=== PATIENT | male | born 1955 | race Caucasian/White ===

== ENCOUNTER 2017-10-28 23:36 | Inpatient (IN) | payer MEDICARE, MEDICAID ==
--- NOTE | 2017-10-28 23:45 | ED Physician Chart ---
ED Chief Complaint/HPI - Patient Information Date Seen:: 10/28/17 Time Seen:: 23:40 Chief Complaint:: anemia History of Present Illness:: She sent here for a hemoglobin of 6.9. Patient is on dialysis Wednesday Historian:: Patient, EMS Review:: Nurse's Note Reviewed, Transfer documents Reviewed ED Review of Systems - Review of Systems General/Constitutional: No fever, No chills Skin: No skin lesions Head: No headache Eyes: No loss of vision ENT: No earache Neck: No neck pain, No swelling Cardio Vascular: No chest pain, No palpitations GI: No nausea, No vomiting, No diarrhea G/U: No dysuria Musculoskeletal: No bone or joint pain, No back pain, No muscle pain Endocrine: No polyuria Psychiatric: No prior psych history ED Past Medical History - Past Medical History Past Medical History: Asthma/COPD, Other (renal failure on dialysis; multiple myeloma anemia; diabetes) Family History: None Social History: Non Smoker, No Alcohol Surgical History: other (dialysis shunt) Psychiatricy History: None Medication: Reviewed Family Medical History - Family Member Mother History Unknown: Yes ED Physical Exam - Physical Examination Other Gen/Cons comments:: Chronically ill appearing in no acute distress Head: Atraumatic Eyes: Lids, conjuctiva normal, PERRL Skin: Nl inspection, No rash ENMT: External ears, nose nl Neck: No nuchal rigidity Respiratory: Nl effort/Exclusion, Clear to Auscultation Cardio Vascular: RRR GI: Normal BS's, Nondistended Other GI comments:: Diffuse mild tenderness : No CVA tenderness Extremities: Normal digits & nails Neuro/Psych: No focal deficits Misc: No paraspinal tenderness ED Labs/Radiology/EKG Results - Lab Results Comments:: Laboratory Results - last 24 hr 10/28/17 23:45 WBC 4.6 L RBC 2.28 L Hgb 6.9 L* Hct 21.1 L MCV 92.5 MCH 30.1 H MCHC Differential 32.6 RDW 22.2 H Plt Count 216 MPV 6.6 Laboratory Results - last 24 hr 10/28/17 10/28/17 23:45 23:45 WBC 4.6 L RBC 2.28 L Hgb 6.9 L* Hct 21.1 L MCV 92.5 MCH 30.1 H MCHC Differential 32.6 RDW 22.2 H Plt Count 216 MPV 6.6 Band Neutrophils % 2 Neutrophils (Manual) 75 Lymphocytes 23 Platelet Estimate ADEQUATE Sodium 135 L Potassium 3.4 L Chloride 96 L Carbon Dioxide 29.5 Anion Gap 12.9 BUN 26 H Creatinine 3.5 H Est GFR ( Amer) 23.1 Est GFR (Non-Af Amer) 19.1 BUN/Creatinine Ratio 7.4 Glucose 93 Calcium 9.3 ED Septic Shock - . Is Septic Shock (SBP<90, OR Lactate>4 mmol\L) present?: No ED Reassessment (Disposition) - Reassessment Reassessment Condition:: Unchanged - Diagnosis Diagnosis:: Anemia; renal failure on dialysis; multiple myeloma - Patient Disposition Admitted to:: Med/Surg Spoke to:: Demetrius Ervin Admitting Medical Physician:: Demetrius Ervin Condition at Disposition:: Stable, Unchanged
[2017-10-28 23:59] LABS: MEAN CELL VOLUME 92.5 fl (80-99); MEAN CORPUSCULAR HEMOGLOBIN 30.1 pg (26.0-30.0); MEAN CORPUSCULAR HGB CONC 32.6 pg (28.0-36.0); MEAN PLATELET VOLUME 6.6 fl; PLATELET COUNT 216 Th/cmm (150-400); RED BLOOD COUNT 2.28 Mil/cmm (4.30-5.70); RED CELL DISTRIBUTION WIDTH 22.2 % (11.5-20.0); WHITE BLOOD COUNT 4.6 Th/cmm (4.8-10.8)
[2017-10-29 00:05] LABS: HEMATOCRIT 21.1 % (41.0-60); HEMOGLOBIN 6.9 gm/dL (12-16)
[2017-10-29 00:06] LABS: MANUAL DIFF REQUIRED? YES
[2017-10-29 00:34] LABS: NEUTROPHILS 75 % (40-80); TOTAL CELLS COUNTED 100
[2017-10-29 00:35] LABS: BAND NEUTROPHILE 2 % (0-10); LYMPHOCYTE 23 % (20-50); PLATELET ESTIMATE ADEQUATE (NORMAL)
[2017-10-29 00:41] LABS: ANION GAP 12.9 (7.0-16.0); CALCIUM SERUM 9.3 mg/dL (8.6-10.3); CARBON DIOXIDE 29.5 mEq/L (21.0-31.0); CREATININE - SERUM 3.5 mg/dL (0.7-1.3); GFR AFRICAN-AMERICAN 23.1 ml/min (>90); GFR NON AFRICAN-AMERICAN 19.1 ml/min; POTASSIUM SERUM 3.4 mEq/L (3.5-5.1)
[2017-10-29 04:42] VITALS: BP 146/90
[2017-10-29 07:21] LABS: WHITE BLOOD COUNT 4.5 Th/cmm (4.8-10.8)
[2017-10-29 07:36] LABS: MEAN CELL VOLUME 92.6 fl (80-99); MEAN CORPUSCULAR HEMOGLOBIN 30.3 pg (26.0-30.0); MEAN CORPUSCULAR HGB CONC 32.7 pg (28.0-36.0); MEAN PLATELET VOLUME 6.4 fl; PLATELET COUNT 219 Th/cmm (150-400); RED BLOOD COUNT 2.23 Mil/cmm (4.30-5.70); RED CELL DISTRIBUTION WIDTH 23.3 % (11.5-20.0)
[2017-10-29 07:38] LABS: HEMOGLOBIN 6.8 gm/dL (12-16)
[2017-10-29 07:39] LABS: HEMATOCRIT 20.7 % (41.0-60); MANUAL DIFF REQUIRED? YES
[2017-10-29 07:56] LABS: ANION GAP 9.4 (7.0-16.0); BILIRUBIN,TOTAL 0.5 mg/dL (0.3-1.0); CALCIUM SERUM 9.3 mg/dL (8.6-10.3); CARBON DIOXIDE 30.3 mEq/L (21.0-31.0); CREATININE - SERUM 3.9 mg/dL (0.7-1.3); GFR AFRICAN-AMERICAN 20.4 ml/min (>90); GFR NON AFRICAN-AMERICAN 16.8 ml/min; POTASSIUM SERUM 3.7 mEq/L (3.5-5.1); TOTAL PROTEIN,SERUM 6.1 gm/dL (6.0-8.3)
[2017-10-29 08:01] LABS: NEUTROPHILS 73 % (40-80); TOTAL CELLS COUNTED 100
[2017-10-29 08:02] LABS: BAND NEUTROPHILE 4 % (0-10); LYMPHOCYTE 22 % (20-50); MONOCYTE 1 % (2-10)
--- NOTE | 2017-10-29 15:46 | History & Physical ---
ADMIT DATE: 10/29/2017 HISTORY OF PRESENT ILLNESS: The patient came through the Emergency Room complaining of severe weakness and was found to have severe anemia of 6.9. The patient is known to have end-stage renal disease and is on dialysis. The patient also known to have history of immunodeficiency disorder and the patient has depression history, the patient has functional paraparesis, patient has multiple myeloma, history of anemia, history of asthma, history of COPD. The patient is chronically ill-looking male patient. REVIEW OF SYSTEMS: As noted above. PAST SURGICAL HISTORY: History of shunt. PAST MEDICAL HISTORY: Enumerated above. FAMILY HISTORY: Unremarkable. PHYSICAL EXAMINATION: GENERAL: Alert, oriented, ill looking male patient, seems to be very weak. HEAD: Normal. ENT: Normal. NECK: Supple, nontender. LUNGS: Bilateral rales. CARDIOVASCULAR SYSTEM: S1, S2 heard. ABDOMEN: Soft. Bowel sounds are heard. LABORATORY DATA: Hemoglobin was 6.9, hematocrit was 29. Electrolytes are abnormal. BUN and creatinine was high at 26 and 3.5. DIAGNOSES: Severe weakness, bilateral lower leg weakness, per functional paraparesis, history of multiple myeloma, history of severe anemia and history of ESRD, rule out sepsis was made. The patient also has history of asthma and history of chronic obstructive pulmonary disease. The patient was admitted. I will have a chart snatcher do the dialysis and also by Infectious Disease doctor see the patient, Dr. Albert Phelps and I will follow the patient. [facility]# [id number]
[2017-10-29] MEDS ORDERED: VTE Chemical Prophylaxis Screen/Admission MC PRN (15:52)
[2017-10-29] MEDS ORDERED: Heparin Sodium 1,000 Units/mL Vial HD ONE (16:45)
[2017-10-29] MEDS: Albuterol/Ipratropium Neb 3 ML AERS HHN SCH (19:02)
[2017-10-29] MEDS: Budesonide 0.5 Mg/2 mL Ud HHN SCH (19:02)
--- NOTE | 2017-10-29 22:14 | Consultation ---
DATE OF CONSULTATION: 10/29/2017 REASON FOR CONSULTATION: Electrolyte imbalance and fluid management. HISTORY OF PRESENT ILLNESS: This is a 62-year-old male with past medical history of end-stage renal disease, on hemodialysis, was brought in because of severe anemia. A few hours prior to admission, the patient had a CBC done, which revealed severe anemia of hemoglobin 6.9. He was then brought to the Emergency Room. His hemoglobin/hematocrit were 6.9/21.1. He was admitted for transfusion. There was no history of hematemesis, epistaxis, hemoptysis, melena, nor hematochezia. PAST MEDICAL HISTORY: 1. End-stage renal disease, on hemodialysis. 2. COPD. 3. Multiple myeloma. 4. Anemia of chronic kidney disease as well as multiple myeloma. 5. Type 2 diabetes mellitus. 6. Essential hypertension. 7. Severe malnutrition. 8. CHF. 9. Pelvic mass. PAST SURGICAL HISTORY: Status post creation of left AV fistula. CURRENT MEDICATIONS: He is currently on acetaminophen as well as budesonide. ALLERGIES: No known drug allergies. SOCIAL AND FAMILY HISTORY: I was not able to obtain from the patient because he is uncooperative at the present time. REVIEW OF SYSTEMS: Again, the patient remains uncooperative, remains nonverbal. PHYSICAL EXAMINATION: GENERAL: The patient is drowsy, uncooperative, but not in any form of distress. VITAL SIGNS: His blood pressure 146/90, pulse 90, and temperature is 98.1 degrees. SKIN: Good turgor, warm, no rash, no jaundice appreciated. HEENT: Head normocephalic, atraumatic. Eyes: Extraocular muscles intact. Pupils equal, round, reactive to light and accommodates. Anicteric sclerae. Pale conjunctivae. Nose, midline nasal septum. Mouth: Dry mucosa, adequate dentition. NECK: Supple, no adenopathy, no thyromegaly, no bruits. Trachea palpated in the midline. CHEST AND CARDIOVASCULAR: S1, S2. No rub, murmur, nor gallop appreciated. Point of maximal impulse fifth intercostal space, left midclavicular line. No abdominal or femoral bruits appreciated. LUNGS: Equal expansion. No use of accessory muscles. No supraclavicular retractions. Decreased breath sounds, clear to auscultation without any wheeze. ABDOMEN: Flat and soft. Positive for bowel sounds. No bruits either diastolic or systolic. RECTAL: The patient refused. GENITOURINARY: Normal appearing male genitalia. MUSCULOSKELETAL: No effusions present in his joints, but unable to assess his range of motion. EXTREMITIES: No evidence of any edema, cyanosis, nor clubbing with palpable femoral, but unable to fully appreciate popliteal, dorsalis pedis pulses. He has a good bruit and thrill on his left AV fistula. NEUROLOGIC: As mentioned, the patient is uncooperative at the present time, so I was not able to pursue further my neuro exam. LABORATORY DATA: White count 4.5, hemoglobin 6.8, hematocrit 20.7, platelets 219, and polys 73%. Sodium 134, potassium 3.7, chloride 98, bicarbonate 30, BUN 27, creatinine 3.9, glucose 104, calcium 9.8, albumin was 3. IMPRESSION: 1. End-stage renal disease, on hemodialysis. 2. Severe anemia secondary to chronic kidney disease as well as multiple myeloma, also consider acute etiologies such as possibly gastrointestinal bleed. 3. Chronic obstructive pulmonary disease. 4. Multiple myeloma. 5. Type 2 diabetes mellitus with chronic kidney disease. 6. Essential hypertension with chronic kidney disease. 7. Severe malnutrition. 8. History of congestive heart failure. 9. Pelvic mass. PLAN: 1. Hemodialysis today. 2. Transfuse 1 more unit of packed RBC. 3. Follow up CBC. 4. Stool for occult blood. JOB# [id number]
[2017-10-30] MEDS ORDERED: Albumin 25% 25gm/100mL 25 GM/100 ML BTL IV PRN
[2017-10-30] MEDS: Albuterol/Ipratropium Neb 3 ML AERS HHN SCH ×4 (00:57→19:08)
[2017-10-30 06:43] LABS: HEMOGLOBIN 8.9 gm/dL (12-16); MEAN CELL VOLUME 89.1 fl (80-99); MEAN CORPUSCULAR HEMOGLOBIN 29.7 pg (26.0-30.0); MEAN CORPUSCULAR HGB CONC 33.3 pg (28.0-36.0); MEAN PLATELET VOLUME 6.8 fl; PLATELET COUNT 193 Th/cmm (150-400); RED BLOOD COUNT 3.01 Mil/cmm (4.30-5.70); RED CELL DISTRIBUTION WIDTH 23.1 % (11.5-20.0)
[2017-10-30] MEDS: Budesonide 0.5 Mg/2 mL Ud HHN SCH ×2 (07:38→19:08)
[2017-10-30 08:03] LABS: HEMATOCRIT 26.8 % (41.0-60); MANUAL DIFF REQUIRED? YES; WHITE BLOOD COUNT 3.7 Th/cmm (4.8-10.8)
--- NOTE | 2017-10-30 08:20 | Diagnostic Imaging Report ---
Portable chest x-ray HISTORY: Shortness of breath Prior exams are not available for comparison. The heart is enlarged. There appears to be elevation of the left hemidiaphragm. Bilateral pulmonary infiltrates are seen. Changes may be chronic. Superimposed pneumonia cannot be excluded. There is extensive deformity about the chest wall with multiple old fractures. Generalized osteopenia throughout the bones. Scoliosis and degenerative changes seen in the spine. IMPRESSION: 1. Cardiomegaly 2. Apparent elevation of the left hemidiaphragm along with bilateral pulmonary infiltrates with an overall appearance which suggests chronic change. Superimposed pneumonia cannot be excluded. Clinical correlation is needed. 3. Extensive chest wall deformity associated with multiple bilateral old fractures and generalized osteopenia. Findings should be correlated with the patient's history.
[2017-10-30 09:17] LABS: BAND NEUTROPHILE 1 % (0-10); EOSINOPHIL 1 % (0-5); LYMPHOCYTE 30 % (20-50); MONOCYTE 2 % (2-10); NEUTROPHILS 66 % (40-80); PLATELET ESTIMATE ADEQUATE (NORMAL); TOTAL CELLS COUNTED 100
[2017-10-30 09:17] LABS: pH 7.46 (7.35-7.45)
--- NOTE | 2017-10-30 12:38 | General Progress Note ---
Subjective - Review of Systems Events since last encounter: in no distress awake alert Objective - Results Result Diagrams: 10/30/17 05:45 10/29/17 07:00 Recent Labs: Laboratory Last Values WBC 3.7 Th/cmm (4.8-10.8) L 10/30/17 05:45 RBC 3.01 Mil/cmm (4.30-5.70) L 10/30/17 05:45 Hgb 8.9 gm/dL (12-16) L 10/30/17 05:45 Hct 26.8 % (41.0-60) L D 10/30/17 05:45 MCV 89.1 fl (80-99) 10/30/17 05:45 MCH 29.7 pg (26.0-30.0) 10/30/17 05:45 MCHC Differential 33.3 pg (28.0-36.0) 10/30/17 05:45 RDW 23.1 % (11.5-20.0) H 10/30/17 05:45 Plt Count 193 Th/cmm (150-400) 10/30/17 05:45 MPV 6.8 fl 10/30/17 05:45 Band Neutrophils % 1 % (0-10) 10/30/17 05:45 Neutrophils (Manual) 66 % (40-80) 10/30/17 05:45 Lymphocytes 30 % (20-50) 10/30/17 05:45 Monocytes 2 % (2-10) 10/30/17 05:45 Eosinophils 1 % (0-5) 10/30/17 05:45 Platelet Estimate ADEQUATE (NORMAL) 10/30/17 05:45 Specimen Source Arterial 10/30/17 09:00 Sample Site RB 10/30/17 09:00 pH 7.46 (7.35-7.45) H 10/30/17 09:00 pCO2 47.0 mmHg (35.0-45.0) H 10/30/17 09:00 pO2 69.0 mmHg (80.0-100.0) L 10/30/17 09:00 HCO3 31.4 mEq/L (20.0-26.0) H 10/30/17 09:00 Base Excess 8.4 mEq/L (-3.0-3.0) H 10/30/17 09:00 O2 Saturation 95.0 % (92.0-100.0) 10/30/17 09:00 Bill Test NA 10/30/17 09:00 Vent Rate NA 10/30/17 09:00 Inspired O2 28 10/30/17 09:00 Tidal Volume NA 10/30/17 09:00 PEEP NA 10/30/17 09:00 Pressure (ins/psv/peep) NA 10/30/17 09:00 Critical Value SH 10/30/17 09:00 Sodium 134 mEq/L (136-145) L 10/29/17 07:00 Potassium 3.7 mEq/L (3.5-5.1) 10/29/17 07:00 Chloride 98 mEq/L (98-107) 10/29/17 07:00 Carbon Dioxide 30.3 mEq/L (21.0-31.0) 10/29/17 07:00 Anion Gap 9.4 (7.0-16.0) 10/29/17 07:00 BUN 27 mg/dL (7-25) H 10/29/17 07:00 Creatinine 3.9 mg/dL (0.7-1.3) H 10/29/17 07:00 Est GFR ( Amer) 20.4 ml/min (>90) 10/29/17 07:00 Est GFR (Non-Af Amer) 16.8 ml/min 10/29/17 07:00 BUN/Creatinine Ratio 6.9 10/29/17 07:00 Glucose 104 mg/dL (70-105) 10/29/17 07:00 POC Glucose 83 MG/DL (70 - 105) 10/29/17 05:41 Calcium 9.3 mg/dL (8.6-10.3) 10/29/17 07:00 Total Bilirubin 0.5 mg/dL (0.3-1.0) 10/29/17 07:00 AST 17 U/L (13-39) 10/29/17 07:00 ALT 16 U/L (7-52) 10/29/17 07:00 Alkaline Phosphatase 182 U/L (34-104) H 10/29/17 07:00 Ammonia 47 umol/L (16-53) 10/30/17 05:45 Total Protein 6.1 gm/dL (6.0-8.3) 10/29/17 07:00 Albumin 3.0 gm/dL (4.2-5.5) L 10/29/17 07:00 Globulin 3.1 gm/dL 10/29/17 07:00 Albumin/Globulin Ratio 1.0 (1.0-1.8) 10/29/17 07:00 Blood Type B NEGATIVE 10/29/17 03:00 Antibody Screen NEGATIVE 10/29/17 03:00 Crossmatch See Detail 10/29/17 03:00 - Physical Exam Vitals and I&O: Vital Signs Temp 98.7 F 10/30/17 08:00 Pulse 91 10/30/17 11:50 Resp 14 10/30/17 11:50 BP 136/85 10/30/17 08:00 Pulse Ox 95 10/30/17 11:50 Intake & Output 10/29/17 10/30/17 10/30/17 18:59 06:59 18:59 Intake Total 100 700 Balance 100 700 Weight (lbs) 43.091 kg 37.104 kg Intake: Oral 100 200 Blood Product 500 Other: # Bowel Movements 0 Active Medications: Current Medications Acetaminophen (Tylenol) 650 mg PO Q6H PRN PRN Reason: MILD PAIN Stop: 12/28/17 05:10 Last Admin: 10/29/17 05:39 Dose: 650 mg Albuterol/Ipratropium (Duoneb Neb) 3 ml HHN Q6HRT [facility] Stop: 12/28/17 18:59 Last Admin: 10/30/17 11:47 Dose: 3 ml Budesonide (Pulmicort) 0.5 mg HHN BIDRT [facility] Stop: 12/28/17 18:59 Last Admin: 10/30/17 07:38 Dose: 0.5 mg Epoetin Binu (Epogen) 5,000 units SUBQ TuThSa [facility] Stop: 12/29/17 13:59 Folic Acid (Folate) 1 mg PO DAILY [facility] Stop: 12/30/17 08:59 Albumin Human (Albuminar 25%) 25 gm in 100 mls @ 50 mls/hr IV PRN PRN PRN Reason: BP Support During HD Stop: 10/30/17 23:00 Miscellaneous (Vte Chemical Prophylaxis Screen/ Admission) 1 ea MC PRN PRN PRN Reason: PROTOCOL Stop: 12/28/17 15:51 Mupirocin (Bactroban Oint) 1 appl TP BID [facility] Stop: 12/29/17 16:59 Nutritional Asmnt/Malnutr-PDOC - Dietary Evaluation Malnutrition Findings (Please click <Entered> for more info): Nutritional Asmnt/Malnutrition Start: 10/29/17 16: 46 Text: Status: Complete Freq: Document 10/29/17 16:46 LUCY (Rec: 10/29/17 17:12 [email or web address] Nutritional Asmnt/Malnutrition Patient General Information Nutritional Screening High Risk Consult Diagnosis Anemia, ESRD Pertinent Medical Hx/Surgical Hx ESRD on dialysis, immunodeficiency disorder, depression, functional paraparesis, multiple myeloma, anemia, asthma/COPD Subjective Information Consult received for hs of malnutrition. Pt seen lying in bed, awake and alert at time of visit. Pt refused lunch, agressive, did not want any food at this time. Pt complained food upset his stomach. Pt has no teeth noted , possibly not able to chew regular textured food. Pt appeared skinny noted. Current Diet Order/ Nutrition Support Renal Pertinent Medications reviewed Pertinent Labs 3/2 Na 134, K 3.7, Cl 98, BUN 27, Cr 3.9, glucose 104, Alb 3 .0 Nutritional Hx/Data Height 1.7 m Height (Calculated Centimeters) 170.2 Current Weight (lbs) 43.091 kg Weight (Calculated Kilograms) 43.1 Weight (Calculated Grams) 14435.3 Harvey Body Weight 147 % Harvey Body Weight 67 Body Mass Index (BMI) 14.8 Weight Status Underweight GI Symptoms GI Symptoms None Last BM no record Difficult in: None Skin Integrity/Comment: reddened to right knee, left lower leg, left knee Estimated Nutritional Goals Calories/Kcals/Kg 25-30 Kcals Calculated 7112-7148 Protein g/k-1.2 Protein Calculated 67-80 Fluid: ml per MD d/t dialysis Nutritional Problem 2. Problem Problem underweight Etiology hx of malnutrition, poor PO intake, chronic ill Signs/Symptoms: BMI 14.9 1. Problem Problem altered nutrition related lab values Etiology hx of ESRD Signs/Symptoms: BUN 27, Cr 3.9 Intervention/Recommendation Comments 1. Receommend modify to purred diet d/t no teeth. RN notified. 2. Recommend oral supplement Novosource Renal BID to increase nutrition intake. 2. Monitor PO intake, wt, labs and skin integrity 3. F/U as high risk in 2-3 days, 10/31-11/01 Expected Outcomes/Goals Expected Outcomes/Goals 1. PO intake to meet at least 75% of nutritional needs with tolerance 2. Wt stability, skin to remain intact, labs to improve
[2017-10-30] MEDS ORDERED: Epoetin Alfa 20000 Units/mL Vial SUBQ SCH (14:00)
--- NOTE | 2017-10-30 14:50 | General Progress Note ---
Subjective - Review of Systems Service Date: 10/30/17 Subjective: awake, nonverbal Objective - Results Result Diagrams: 10/30/17 05:45 10/29/17 07:00 Recent Labs: Laboratory Last Values WBC 3.7 Th/cmm (4.8-10.8) L 10/30/17 05:45 RBC 3.01 Mil/cmm (4.30-5.70) L 10/30/17 05:45 Hgb 8.9 gm/dL (12-16) L 10/30/17 05:45 Hct 26.8 % (41.0-60) L D 10/30/17 05:45 MCV 89.1 fl (80-99) 10/30/17 05:45 MCH 29.7 pg (26.0-30.0) 10/30/17 05:45 MCHC Differential 33.3 pg (28.0-36.0) 10/30/17 05:45 RDW 23.1 % (11.5-20.0) H 10/30/17 05:45 Plt Count 193 Th/cmm (150-400) 10/30/17 05:45 MPV 6.8 fl 10/30/17 05:45 Band Neutrophils % 1 % (0-10) 10/30/17 05:45 Neutrophils (Manual) 66 % (40-80) 10/30/17 05:45 Lymphocytes 30 % (20-50) 10/30/17 05:45 Monocytes 2 % (2-10) 10/30/17 05:45 Eosinophils 1 % (0-5) 10/30/17 05:45 Platelet Estimate ADEQUATE (NORMAL) 10/30/17 05:45 Specimen Source Arterial 10/30/17 09:00 Sample Site RB 10/30/17 09:00 pH 7.46 (7.35-7.45) H 10/30/17 09:00 pCO2 47.0 mmHg (35.0-45.0) H 10/30/17 09:00 pO2 69.0 mmHg (80.0-100.0) L 10/30/17 09:00 HCO3 31.4 mEq/L (20.0-26.0) H 10/30/17 09:00 Base Excess 8.4 mEq/L (-3.0-3.0) H 10/30/17 09:00 O2 Saturation 95.0 % (92.0-100.0) 10/30/17 09:00 Bill Test NA 10/30/17 09:00 Vent Rate NA 10/30/17 09:00 Inspired O2 28 10/30/17 09:00 Tidal Volume NA 10/30/17 09:00 PEEP NA 10/30/17 09:00 Pressure (ins/psv/peep) NA 10/30/17 09:00 Critical Value SH 10/30/17 09:00 Sodium 134 mEq/L (136-145) L 10/29/17 07:00 Potassium 3.7 mEq/L (3.5-5.1) 10/29/17 07:00 Chloride 98 mEq/L (98-107) 10/29/17 07:00 Carbon Dioxide 30.3 mEq/L (21.0-31.0) 10/29/17 07:00 Anion Gap 9.4 (7.0-16.0) 10/29/17 07:00 BUN 27 mg/dL (7-25) H 10/29/17 07:00 Creatinine 3.9 mg/dL (0.7-1.3) H 10/29/17 07:00 Est GFR ( Amer) 20.4 ml/min (>90) 10/29/17 07:00 Est GFR (Non-Af Amer) 16.8 ml/min 10/29/17 07:00 BUN/Creatinine Ratio 6.9 10/29/17 07:00 Glucose 104 mg/dL (70-105) 10/29/17 07:00 POC Glucose 83 MG/DL (70 - 105) 10/29/17 05:41 Calcium 9.3 mg/dL (8.6-10.3) 10/29/17 07:00 Total Bilirubin 0.5 mg/dL (0.3-1.0) 10/29/17 07:00 AST 17 U/L (13-39) 10/29/17 07:00 ALT 16 U/L (7-52) 10/29/17 07:00 Alkaline Phosphatase 182 U/L (34-104) H 10/29/17 07:00 Ammonia 47 umol/L (16-53) 10/30/17 05:45 Total Protein 6.1 gm/dL (6.0-8.3) 10/29/17 07:00 Albumin 3.0 gm/dL (4.2-5.5) L 10/29/17 07:00 Globulin 3.1 gm/dL 10/29/17 07:00 Albumin/Globulin Ratio 1.0 (1.0-1.8) 10/29/17 07:00 Blood Type B NEGATIVE 10/29/17 03:00 Antibody Screen NEGATIVE 10/29/17 03:00 Crossmatch See Detail 10/29/17 03:00 - Physical Exam Vitals and I&O: Vital Signs Temp 97.8 F 10/30/17 12:00 Pulse 106 10/30/17 12:00 Resp 18 10/30/17 12:00 BP 137/88 10/30/17 12:00 Pulse Ox 93 10/30/17 12:00 Intake & Output 10/29/17 10/30/17 10/30/17 18:59 06:59 18:59 Intake Total 100 700 Balance 100 700 Weight (lbs) 43.091 kg 37.104 kg Intake: Oral 100 200 Blood Product 500 Other: # Bowel Movements 0 Active Medications: Current Medications Acetaminophen (Tylenol) 650 mg PO Q6H PRN PRN Reason: MILD PAIN Stop: 12/28/17 05:10 Last Admin: 10/29/17 05:39 Dose: 650 mg Albuterol/Ipratropium (Duoneb Neb) 3 ml HHN Q6HRT [facility] Stop: 12/28/17 18:59 Last Admin: 10/30/17 11:47 Dose: 3 ml Budesonide (Pulmicort) 0.5 mg HHN BIDRT [facility] Stop: 12/28/17 18:59 Last Admin: 10/30/17 07:38 Dose: 0.5 mg Epoetin Binu (Epogen) 5,000 units SUBQ TuThSa [facility] Stop: 12/29/17 13:59 Folic Acid (Folate) 1 mg PO DAILY [facility] Stop: 12/30/17 08:59 Albumin Human (Albuminar 25%) 25 gm in 100 mls @ 50 mls/hr IV PRN PRN PRN Reason: BP Support During HD Stop: 10/30/17 23:00 Miscellaneous (Vte Chemical Prophylaxis Screen/ Admission) 1 ea MC PRN PRN PRN Reason: PROTOCOL Stop: 12/28/17 15:51 Mupirocin (Bactroban Oint) 1 appl TP BID [facility] Stop: 12/29/17 16:59 General: Alert, No acute distress HEENT: Atraumatic, PERRLA, EOMI, Mucous membr. moist/pink Neck: Supple Cardiovascular: Regular rate, Normal S1, Normal S2 Lungs: Clear to auscultation Abdomen: Bowel sounds, Soft Extremities: no Edema Neurological: Sensation intact Skin: no Rash Psych/Mental Status: Mood NL Assessment/Plan - Assessment Assessment: ESRD on HD Severe Anemia COPD MM Type 2 DM Ess Htn Severe Malnutrition CHF - Plan Plan: Lab - Result Diagrams 10/30/17 05:45 10/29/17 07:00 Current Medications Acetaminophen (Tylenol) 650 mg PO Q6H PRN PRN Reason: MILD PAIN Stop: 12/28/17 05:10 Last Admin: 10/29/17 05:39 Dose: 650 mg Albuterol/Ipratropium (Duoneb Neb) 3 ml HHN Q6HRT [facility] Stop: 12/28/17 18:59 Last Admin: 10/30/17 11:47 Dose: 3 ml Budesonide (Pulmicort) 0.5 mg HHN BIDRT [facility] Stop: 12/28/17 18:59 Last Admin: 10/30/17 07:38 Dose: 0.5 mg Epoetin Binu (Epogen) 5,000 units SUBQ TuThSa [facility] Stop: 12/29/17 13:59 Folic Acid (Folate) 1 mg PO DAILY [facility] Stop: 12/30/17 08:59 Albumin Human (Albuminar 25%) 25 gm in 100 mls @ 50 mls/hr IV PRN PRN PRN Reason: BP Support During HD Stop: 10/30/17 23:00 Miscellaneous (Vte Chemical Prophylaxis Screen/ Admission) 1 ea MC PRN PRN PRN Reason: PROTOCOL Stop: 12/28/17 15:51 Mupirocin (Bactroban Oint) 1 appl TP BID [facility] Stop: 12/29/17 16:59 Lab - Result Diagrams 10/30/17 05:45 10/29/17 07:00 Pt. was dialyzed yesterday & transfused 2 U PRBC no obvious bleed Nutritional Asmnt/Malnutr-PDOC - Dietary Evaluation Malnutrition Findings (Please click <Entered> for more info): Nutritional Asmnt/Malnutrition Start: 10/29/17 16: 46 Text: Status: Complete Freq: Document 10/29/17 16:46 FAUZIA (Rec: 10/29/17 17:12 FAUZIA [email or web address]) Nutritional Asmnt/Malnutrition Patient General Information Nutritional Screening High Risk Consult Diagnosis Anemia, ESRD Pertinent Medical Hx/Surgical Hx ESRD on dialysis, immunodeficiency disorder, depression, functional paraparesis, multiple myeloma, anemia, asthma/COPD Subjective Information Consult received for hs of malnutrition. Pt seen lying in bed, awake and alert at time of visit. Pt refused lunch, agressive, did not want any food at this time. Pt complained food upset his stomach. Pt has no teeth noted , possibly not able to chew regular textured food. Pt appeared skinny noted. Current Diet Order/ Nutrition Support Renal Pertinent Medications reviewed Pertinent Labs 3/2 Na 134, K 3.7, Cl 98, BUN 27, Cr 3.9, glucose 104, Alb 3 .0 Nutritional Hx/Data Height 1.7 m Height (Calculated Centimeters) 170.2 Current Weight (lbs) 43.091 kg Weight (Calculated Kilograms) 43.1 Weight (Calculated Grams) 26947.3 [place] Body Weight 147 % [place] Body Weight 67 Body Mass Index (BMI) 14.8 Weight Status Underweight GI Symptoms GI Symptoms None Last BM no record Difficult in: None Skin Integrity/Comment: reddened to right knee, left lower leg, left knee Estimated Nutritional Goals Calories/Kcals/Kg 25-30 Kcals Calculated 1572-0659 Protein g/k-1.2 Protein Calculated 67-80 Fluid: ml per MD d/t dialysis Nutritional Problem 2. Problem Problem underweight Etiology hx of malnutrition, poor PO intake, chronic ill Signs/Symptoms: BMI 14.9 1. Problem Problem altered nutrition related lab values Etiology hx of ESRD Signs/Symptoms: BUN 27, Cr 3.9 Intervention/Recommendation Comments 1. Receommend modify to purred diet d/t no teeth. RN notified. 2. Recommend oral supplement Novosource Renal BID to increase nutrition intake. 2. Monitor PO intake, wt, labs and skin integrity 3. F/U as high risk in 2-3 days, 3/4-3/5 Expected Outcomes/Goals Expected Outcomes/Goals 1. PO intake to meet at least 75% of nutritional needs with tolerance 2. Wt stability, skin to remain intact, labs to improve
--- NOTE | 2017-10-30 15:15 | History & Physical ---
ADMIT DATE: 10/29/2017 HEMATOLOGY ONCOLOGY CONSULTATION REFERRING PHYSICIAN: Dr. Ervin. REASON FOR CONSULTATION: Multiple myeloma, anemia, and leukopenia. HISTORY OF PRESENT ILLNESS: The patient is a 62-year-old male who was admitted with severe anemia, hemoglobin of 6.8, transfused, now hemoglobin is 8.9. He was also found to have leukopenia and he had a history of multiple myeloma. The patient has also end-stage renal disease, on hemodialysis via left arm fistula. On questioning the patient, he denied having a history of myeloma; however, he is a very unreliable historian. PAST MEDICAL HISTORY: Based on review of the records, end-stage renal disease, anemia, COPD, asthma, multiple myeloma, and paraparesis. MEDICATIONS: Reviewed. PAST SURGICAL HISTORY: History of left arm shocked AV fistula. FAMILY HISTORY: Noncontributory. PHYSICAL EXAMINATION: GENERAL: The patient looks chronically ill looking, looks much older than his stated age. VITAL SIGNS: Stable. HEENT: Bitemporal wasting. NECK: No lymphadenopathy. CHEST: Good air entry. ABDOMEN: Soft. EXTREMITIES: Wasted muscles, left arm AV fistula. LABORATORY DATA: White count 3.7, hemoglobin 8.9, and platelets 193. Creatinine 3.9, alkaline phosphatase is slightly elevated at 182. MCV 89. ASSESSMENT: 1. History of myeloma though the patient is denying that I will obtain immunofixation and quantitative immunoglobulin levels and free light chains for evaluation of the status myeloma. 2. Anemia, likely multifactorial from renal disease, chronic disease plus other etiologies plus minus blood loss. I will obtain a stool occult blood, iron studies, B12, and folate level. ____ the patient on folate supplementation because of renal disease. He may benefit from IV iron as the ferritin is low. Thank you for Dr. Ervin for the opportunity to participate in the care of this interesting case. JOB# [id number]
[2017-10-30] MEDS ORDERED: EPOETIN ALFA SQ SCH (21:15)
[2017-10-31] MEDS: Albuterol/Ipratropium Neb 3 ML AERS HHN SCH ×4 (01:12→18:53)
--- NOTE | 2017-10-31 03:34 | Progress Notes ---
DATE: 10/30/2017 PULMONARY PROGRESS NOTE PROBLEM LIST: 1. Asthmatic bronchitis. 2. Question fluid overload. 3. Chronic renal failure, on hemodialysis. 4. Malnutrition and significant anorexia, etc. SYMPTOMS: Nil. The patient is awake, but noncommunicative, not in any acute respiratory distress, etc. PHYSICAL EXAMINATION: VITAL SIGNS: The patient's recorded vitals: Temperature is 97.6, blood pressure 128/83, respirations 18, and saturation 98. NECK: Veins not visualized. CHEST: Shows occasional rhonchi with diminished air entry. HEART: Regular. ABDOMEN: Soft. Nontender. EXTREMITIES: Shows slight trace of peripheral edema. ASSESSMENT AND PLAN: The patient clinically appears to be stable, not much change. JOB# [id number]
[2017-10-31 06:59] LABS: ALB/GLOB RATIO 0.9 (1.0-1.8); ANION GAP 10.9 (7.0-16.0); BILIRUBIN,TOTAL 0.5 mg/dL (0.3-1.0); CALCIUM SERUM 9.6 mg/dL (8.6-10.3); CARBON DIOXIDE 31.1 mEq/L (21.0-31.0); CREATININE - SERUM 3.7 mg/dL (0.7-1.3); GFR AFRICAN-AMERICAN 21.7 ml/min (>90); GFR NON AFRICAN-AMERICAN 17.9 ml/min; TOTAL PROTEIN,SERUM 6.4 gm/dL (6.0-8.3)
[2017-10-31] MEDS: Budesonide 0.5 Mg/2 mL Ud HHN SCH ×2 (07:19→18:53)
[2017-10-31 07:27] LABS: % EOSINOPHILS 0.8 % (0.0-5.0); % LYMPHOCYTES 32.7 % (20.0-50.0); % MONOCYTES 2.6 % (2.0-10.0); % NEUTROPHILS 63.9 % (40.0-80.0); HEMATOCRIT 26.2 % (41.0-60); HEMOGLOBIN 8.6 gm/dL (12-16); LYMPHOCYTE ABSOLUTE 1.1 Th/cmm (1.5-3.0); MEAN CELL VOLUME 90.1 fl (80-99); MEAN CORPUSCULAR HEMOGLOBIN 29.5 pg (26.0-30.0); MEAN CORPUSCULAR HGB CONC 32.7 pg (28.0-36.0); MEAN PLATELET VOLUME 6.6 fl; MONOCYTE ABSOLUTE 0.1 Th/cmm (0.3-1.0); NEUTROPHILE ABSOLUTE 2.3 Th/cmm (1.8-8.0); PLATELET COUNT 182 Th/cmm (150-400); RED BLOOD COUNT 2.91 Mil/cmm (4.30-5.70); RED CELL DISTRIBUTION WIDTH 21.7 % (11.5-20.0)
[2017-10-31 07:34] LABS: WHITE BLOOD COUNT 3.5 Th/cmm (4.8-10.8)
[2017-10-31 08:06] LABS: BILIRUBIN,DIRECT 0.15 mg/dL (0.0-0.2)
[2017-10-31] MEDS: Vitamin B Complex w/Vitamin C Tab PO SCH ×2 (08:43→08:47)
[2017-10-31] MEDS ORDERED: FIBER PO SCH (09:00)
[2017-10-31] MEDS ORDERED: PROTEIN HYDR PO SCH (09:00)
[2017-10-31] MEDS ORDERED: [UNRECOGNIZED DRUG - OTHER] PO SCH (09:00)
[2017-10-31] MEDS ORDERED: AMINO ACIDS PO SCH (09:00)
--- NOTE | 2017-10-31 09:42 | Diagnostic Imaging Report ---
Portable chest x-ray HISTORY: Shortness of breath Compared to prior exam of October 30, 2017, the heart remains enlarged. Persistent elevation of the left hemidiaphragm. Persistent bilateral infiltrates. No change in previously reported extensive bony deformities about the chest and shoulder regions. IMPRESSION: 1. No significant change in the cardiopulmonary status.
[2017-10-31 09:53] LABS: pH 7.47 (7.35-7.45)
--- NOTE | 2017-10-31 14:02 | General Progress Note ---
Subjective - Review of Systems Events since last encounter: in no distress awake alert Objective - Results Result Diagrams: 10/31/17 05:53 10/31/17 05:53 Recent Labs: Laboratory Last Values WBC 3.5 Th/cmm (4.8-10.8) L 10/31/17 05:53 RBC 2.91 Mil/cmm (4.30-5.70) L 10/31/17 05:53 Hgb 8.6 gm/dL (12-16) L 10/31/17 05:53 Hct 26.2 % (41.0-60) L 10/31/17 05:53 MCV 90.1 fl (80-99) 10/31/17 05:53 MCH 29.5 pg (26.0-30.0) 10/31/17 05:53 MCHC Differential 32.7 pg (28.0-36.0) 10/31/17 05:53 RDW 21.7 % (11.5-20.0) H 10/31/17 05:53 Plt Count 182 Th/cmm (150-400) 10/31/17 05:53 MPV 6.6 fl 10/31/17 05:53 Neutrophils % 63.9 % (40.0-80.0) 10/31/17 05:53 Band Neutrophils % 1 % (0-10) 10/30/17 05:45 Lymphocytes % 32.7 % (20.0-50.0) 10/31/17 05:53 Monocytes % 2.6 % (2.0-10.0) 10/31/17 05:53 Eosinophils % 0.8 % (0.0-5.0) 10/31/17 05:53 Basophils % 0.0 % (0.0-2.0) 10/31/17 05:53 Neutrophils (Manual) 66 % (40-80) 10/30/17 05:45 Lymphocytes 30 % (20-50) 10/30/17 05:45 Monocytes 2 % (2-10) 10/30/17 05:45 Eosinophils 1 % (0-5) 10/30/17 05:45 Platelet Estimate ADEQUATE (NORMAL) 10/30/17 05:45 Specimen Source Arterial 10/31/17 09:00 Sample Site RB 10/31/17 09:00 pH 7.47 (7.35-7.45) H 10/31/17 09:00 pCO2 46.0 mmHg (35.0-45.0) H 10/31/17 09:00 pO2 46.0 mmHg (80.0-100.0) L* 10/31/17 09:00 HCO3 31.4 mEq/L (20.0-26.0) H 10/31/17 09:00 Base Excess 8.7 mEq/L (-3.0-3.0) H 10/31/17 09:00 O2 Saturation 85.0 % (92.0-100.0) L 10/31/17 09:00 Bill Test NA 10/31/17 09:00 Vent Rate NA 10/31/17 09:00 Inspired O2 21 10/31/17 09:00 Tidal Volume NA 10/31/17 09:00 PEEP NA 10/31/17 09:00 Pressure (ins/psv/peep) NA 10/31/17 09:00 Critical Value SH 10/31/17 09:00 Sodium 134 mEq/L (136-145) L 10/31/17 05:53 Potassium 4.0 mEq/L (3.5-5.1) 10/31/17 05:53 Chloride 96 mEq/L (98-107) L 10/31/17 05:53 Carbon Dioxide 31.1 mEq/L (21.0-31.0) H 10/31/17 05:53 Anion Gap 10.9 (7.0-16.0) 10/31/17 05:53 BUN 26 mg/dL (7-25) H 10/31/17 05:53 Creatinine 3.7 mg/dL (0.7-1.3) H 10/31/17 05:53 Est GFR ( Amer) 21.7 ml/min (>90) 10/31/17 05:53 Est GFR (Non-Af Amer) 17.9 ml/min 10/31/17 05:53 BUN/Creatinine Ratio 7.0 10/31/17 05:53 Glucose 92 mg/dL (70-105) 10/31/17 05:53 POC Glucose 83 MG/DL (70 - 105) 10/29/17 05:41 Calcium 9.6 mg/dL (8.6-10.3) 10/31/17 05:53 Total Bilirubin 0.5 mg/dL (0.3-1.0) 10/31/17 05:53 Direct Bilirubin 0.15 mg/dL (0.0-0.2) 10/31/17 05:53 AST 16 U/L (13-39) 10/31/17 05:53 ALT 15 U/L (7-52) 10/31/17 05:53 Alkaline Phosphatase 172 U/L (34-104) H 10/31/17 05:53 Ammonia 49 umol/L (16-53) 10/31/17 05:53 Total Protein 6.4 gm/dL (6.0-8.3) 10/31/17 05:53 Albumin 3.0 gm/dL (4.2-5.5) L 10/31/17 05:53 Globulin 3.4 gm/dL 10/31/17 05:53 Albumin/Globulin Ratio 0.9 (1.0-1.8) L 10/31/17 05:53 Serum Immunofixation 662 mg/dL (700-1600) L 10/30/17 05:45 Blood Type B NEGATIVE 10/29/17 03:00 Antibody Screen NEGATIVE 10/29/17 03:00 Crossmatch See Detail 10/29/17 03:00 - Physical Exam Vitals and I&O: Vital Signs Temp 98.4 F 10/31/17 08:00 Pulse 95 10/31/17 12:41 Resp 14 10/31/17 12:41 BP 136/87 10/31/17 08:00 Pulse Ox 96 10/31/17 12:41 Intake & Output 10/30/17 10/31/17 10/31/17 18:59 06:59 18:59 Intake Total 350 Balance 350 Weight (lbs) 36.968 kg 41.504 kg Intake: Oral 350 Other: # Voids 3 # Bowel Movements 0 Stool Characteristics Soft Formed Brown Active Medications: Current Medications Acetaminophen (Tylenol) 650 mg PO Q6H PRN PRN Reason: MILD PAIN Stop: 12/28/17 05:10 Last Admin: 10/29/17 05:39 Dose: 650 mg Acetaminophen (Tylenol) 650 mg PO Q6HR PRN PRN Reason: Fever >101 Stop: 12/29/17 21:09 Albuterol/Ipratropium (Duoneb Neb) 3 ml HHN Q6HRT [facility] Stop: 12/28/17 18:59 Last Admin: 10/31/17 12:39 Dose: 3 ml Atorvastatin Calcium (Lipitor) 40 mg PO HS [facility] Stop: 12/30/17 20:59 Budesonide (Pulmicort) 0.5 mg HHN BIDRT [facility] Stop: 12/28/17 18:59 Last Admin: 10/31/17 07:19 Dose: 0.5 mg Docusate Sodium (Colace) 100 mg PO BID [facility] Stop: 12/30/17 08:59 Last Admin: 10/31/17 08:43 Dose: 100 mg Epoetin Binu (Epogen) 5,000 units SUBQ TuThSa [facility] Stop: 12/29/17 13:59 Last Admin: 10/30/17 16:05 Dose: 5,000 units Folic Acid (Folate) 1 mg PO DAILY [facility] Stop: 12/30/17 08:59 Last Admin: 10/31/17 08:43 Dose: Not Given Miscellaneous (Vte Chemical Prophylaxis Screen/ Admission) 1 ea MC PRN PRN PRN Reason: PROTOCOL Stop: 12/28/17 15:51 Mupirocin (Bactroban Oint) 1 appl TP BID [facility] Stop: 12/29/17 16:59 Last Admin: 10/31/17 08:43 Dose: 1 appl Vitamin B Complex/Vit C/Folic Acid (Vitamin B Complex W/Vitamin C) 1 tab PO DAILY [facility] Stop: 12/30/17 08:59 Last Admin: 10/31/17 08:47 Dose: Not Given General: Alert, No acute distress HEENT: Atraumatic, PERRLA, EOMI, Mucous membr. moist/pink Neck: Supple Cardiovascular: Regular rate, Normal S1, Normal S2 Lungs: Clear to auscultation Abdomen: Bowel sounds, Soft Extremities: no Edema Neurological: Sensation intact Skin: no Rash Psych/Mental Status: Mood NL Nutritional Asmnt/Malnutr-PDOC - Dietary Evaluation Malnutrition Findings (Please click <Entered> for more info): Nutritional Asmnt/Malnutrition Start: 10/29/17 16: 46 Text: Status: Complete Freq: Document 10/29/17 16:46 FAUZIA (Rec: 10/29/17 17:12 LCMARILYN [email or web address]) Nutritional Asmnt/Malnutrition Patient General Information Nutritional Screening High Risk Consult Diagnosis Anemia, ESRD Pertinent Medical Hx/Surgical Hx ESRD on dialysis, immunodeficiency disorder, depression, functional paraparesis, multiple myeloma, anemia, asthma/COPD Subjective Information Consult received for hs of malnutrition. Pt seen lying in bed, awake and alert at time of visit. Pt refused lunch, agressive, did not want any food at this time. Pt complained food upset his stomach. Pt has no teeth noted , possibly not able to chew regular textured food. Pt appeared skinny noted. Current Diet Order/ Nutrition Support Renal Pertinent Medications reviewed Pertinent Labs 3/2 Na 134, K 3.7, Cl 98, BUN 27, Cr 3.9, glucose 104, Alb 3 .0 Nutritional Hx/Data Height 1.7 m Height (Calculated Centimeters) 170.2 Current Weight (lbs) 43.091 kg Weight (Calculated Kilograms) 43.1 Weight (Calculated Grams) 15024.3 [place] Body Weight 147 % [place] Body Weight 67 Body Mass Index (BMI) 14.8 Weight Status Underweight GI Symptoms GI Symptoms None Last BM no record Difficult in: None Skin Integrity/Comment: reddened to right knee, left lower leg, left knee Estimated Nutritional Goals Calories/Kcals/Kg 25-30 Kcals Calculated 8564-5901 Protein g/k-1.2 Protein Calculated 67-80 Fluid: ml per MD d/t dialysis Nutritional Problem 2. Problem Problem underweight Etiology hx of malnutrition, poor PO intake, chronic ill Signs/Symptoms: BMI 14.9 1. Problem Problem altered nutrition related lab values Etiology hx of ESRD Signs/Symptoms: BUN 27, Cr 3.9 Intervention/Recommendation Comments 1. Receommend modify to purred diet d/t no teeth. RN notified. 2. Recommend oral supplement Novosource Renal BID to increase nutrition intake. 2. Monitor PO intake, wt, labs and skin integrity 3. F/U as high risk in 2-3 days, 3/4-3/5 Expected Outcomes/Goals Expected Outcomes/Goals 1. PO intake to meet at least 75% of nutritional needs with tolerance 2. Wt stability, skin to remain intact, labs to improve
--- NOTE | 2017-10-31 15:38 | General Progress Note ---
Subjective - Review of Systems Service Date: 10/31/17 Subjective: awake, nonverbal Objective - Results Result Diagrams: 10/31/17 05:53 10/31/17 05:53 Recent Labs: Laboratory Last Values WBC 3.5 Th/cmm (4.8-10.8) L 10/31/17 05:53 RBC 2.91 Mil/cmm (4.30-5.70) L 10/31/17 05:53 Hgb 8.6 gm/dL (12-16) L 10/31/17 05:53 Hct 26.2 % (41.0-60) L 10/31/17 05:53 MCV 90.1 fl (80-99) 10/31/17 05:53 MCH 29.5 pg (26.0-30.0) 10/31/17 05:53 MCHC Differential 32.7 pg (28.0-36.0) 10/31/17 05:53 RDW 21.7 % (11.5-20.0) H 10/31/17 05:53 Plt Count 182 Th/cmm (150-400) 10/31/17 05:53 MPV 6.6 fl 10/31/17 05:53 Neutrophils % 63.9 % (40.0-80.0) 10/31/17 05:53 Band Neutrophils % 1 % (0-10) 10/30/17 05:45 Lymphocytes % 32.7 % (20.0-50.0) 10/31/17 05:53 Monocytes % 2.6 % (2.0-10.0) 10/31/17 05:53 Eosinophils % 0.8 % (0.0-5.0) 10/31/17 05:53 Basophils % 0.0 % (0.0-2.0) 10/31/17 05:53 Neutrophils (Manual) 66 % (40-80) 10/30/17 05:45 Lymphocytes 30 % (20-50) 10/30/17 05:45 Monocytes 2 % (2-10) 10/30/17 05:45 Eosinophils 1 % (0-5) 10/30/17 05:45 Platelet Estimate ADEQUATE (NORMAL) 10/30/17 05:45 Specimen Source Arterial 10/31/17 09:00 Sample Site RB 10/31/17 09:00 pH 7.47 (7.35-7.45) H 10/31/17 09:00 pCO2 46.0 mmHg (35.0-45.0) H 10/31/17 09:00 pO2 46.0 mmHg (80.0-100.0) L* 10/31/17 09:00 HCO3 31.4 mEq/L (20.0-26.0) H 10/31/17 09:00 Base Excess 8.7 mEq/L (-3.0-3.0) H 10/31/17 09:00 O2 Saturation 85.0 % (92.0-100.0) L 10/31/17 09:00 Bill Test NA 10/31/17 09:00 Vent Rate NA 10/31/17 09:00 Inspired O2 21 10/31/17 09:00 Tidal Volume NA 10/31/17 09:00 PEEP NA 10/31/17 09:00 Pressure (ins/psv/peep) NA 10/31/17 09:00 Critical Value SH 10/31/17 09:00 Sodium 134 mEq/L (136-145) L 10/31/17 05:53 Potassium 4.0 mEq/L (3.5-5.1) 10/31/17 05:53 Chloride 96 mEq/L (98-107) L 10/31/17 05:53 Carbon Dioxide 31.1 mEq/L (21.0-31.0) H 10/31/17 05:53 Anion Gap 10.9 (7.0-16.0) 10/31/17 05:53 BUN 26 mg/dL (7-25) H 10/31/17 05:53 Creatinine 3.7 mg/dL (0.7-1.3) H 10/31/17 05:53 Est GFR ( Amer) 21.7 ml/min (>90) 10/31/17 05:53 Est GFR (Non-Af Amer) 17.9 ml/min 10/31/17 05:53 BUN/Creatinine Ratio 7.0 10/31/17 05:53 Glucose 92 mg/dL (70-105) 10/31/17 05:53 POC Glucose 83 MG/DL (70 - 105) 10/29/17 05:41 Calcium 9.6 mg/dL (8.6-10.3) 10/31/17 05:53 Total Bilirubin 0.5 mg/dL (0.3-1.0) 10/31/17 05:53 Direct Bilirubin 0.15 mg/dL (0.0-0.2) 10/31/17 05:53 AST 16 U/L (13-39) 10/31/17 05:53 ALT 15 U/L (7-52) 10/31/17 05:53 Alkaline Phosphatase 172 U/L (34-104) H 10/31/17 05:53 Ammonia 49 umol/L (16-53) 10/31/17 05:53 Total Protein 6.4 gm/dL (6.0-8.3) 10/31/17 05:53 Albumin 3.0 gm/dL (4.2-5.5) L 10/31/17 05:53 Globulin 3.4 gm/dL 10/31/17 05:53 Albumin/Globulin Ratio 0.9 (1.0-1.8) L 10/31/17 05:53 Serum Immunofixation 662 mg/dL (700-1600) L 10/30/17 05:45 Blood Type B NEGATIVE 10/29/17 03:00 Antibody Screen NEGATIVE 10/29/17 03:00 Crossmatch See Detail 10/29/17 03:00 - Physical Exam Vitals and I&O: Vital Signs Temp 98.4 F 10/31/17 08:00 Pulse 95 10/31/17 12:41 Resp 14 10/31/17 12:41 BP 136/87 10/31/17 08:00 Pulse Ox 96 10/31/17 12:41 Intake & Output 10/30/17 10/31/17 10/31/17 18:59 06:59 18:59 Intake Total 350 Balance 350 Weight (lbs) 36.968 kg 41.504 kg Intake: Oral 350 Other: # Voids 3 # Bowel Movements 0 Stool Characteristics Soft Formed Brown Active Medications: Current Medications Acetaminophen (Tylenol) 650 mg PO Q6H PRN PRN Reason: MILD PAIN Stop: 12/28/17 05:10 Last Admin: 10/29/17 05:39 Dose: 650 mg Acetaminophen (Tylenol) 650 mg PO Q6HR PRN PRN Reason: Fever >101 Stop: 12/29/17 21:09 Albuterol/Ipratropium (Duoneb Neb) 3 ml HHN Q6HRT [facility] Stop: 12/28/17 18:59 Last Admin: 10/31/17 12:39 Dose: 3 ml Atorvastatin Calcium (Lipitor) 40 mg PO HS [facility] Stop: 12/30/17 20:59 Budesonide (Pulmicort) 0.5 mg HHN BIDRT [facility] Stop: 12/28/17 18:59 Last Admin: 10/31/17 07:19 Dose: 0.5 mg Docusate Sodium (Colace) 100 mg PO BID [facility] Stop: 12/30/17 08:59 Last Admin: 10/31/17 08:43 Dose: 100 mg Epoetin Binu (Epogen) 5,000 units SUBQ TuThSa [facility] Stop: 12/29/17 13:59 Last Admin: 10/30/17 16:05 Dose: 5,000 units Folic Acid (Folate) 1 mg PO DAILY [facility] Stop: 12/30/17 08:59 Last Admin: 10/31/17 08:43 Dose: Not Given Miscellaneous (Vte Chemical Prophylaxis Screen/ Admission) 1 ea MC PRN PRN PRN Reason: PROTOCOL Stop: 12/28/17 15:51 Mupirocin (Bactroban Oint) 1 appl TP BID [facility] Stop: 12/29/17 16:59 Last Admin: 10/31/17 08:43 Dose: 1 appl Vitamin B Complex/Vit C/Folic Acid (Vitamin B Complex W/Vitamin C) 1 tab PO DAILY [facility] Stop: 12/30/17 08:59 Last Admin: 10/31/17 08:47 Dose: Not Given General: Alert, No acute distress HEENT: Atraumatic, PERRLA, EOMI, Mucous membr. moist/pink Neck: Supple Cardiovascular: Regular rate, Normal S1, Normal S2 Lungs: Clear to auscultation Abdomen: Bowel sounds, Soft Extremities: no Edema Neurological: Sensation intact Skin: no Rash Psych/Mental Status: Mood NL Assessment/Plan - Assessment Assessment: ESRD on HD Severe Anemia COPD MM Type 2 DM Ess Htn Severe Malnutrition CHF - Plan Plan: Lab - Result Diagrams 10/30/17 05:45 10/29/17 07:00 Current Medications Acetaminophen (Tylenol) 650 mg PO Q6H PRN PRN Reason: MILD PAIN Stop: 12/28/17 05:10 Last Admin: 10/29/17 05:39 Dose: 650 mg Albuterol/Ipratropium (Duoneb Neb) 3 ml HHN Q6HRT [facility] Stop: 12/28/17 18:59 Last Admin: 10/30/17 11:47 Dose: 3 ml Budesonide (Pulmicort) 0.5 mg HHN BIDRT [facility] Stop: 12/28/17 18:59 Last Admin: 10/30/17 07:38 Dose: 0.5 mg Epoetin Binu (Epogen) 5,000 units SUBQ TuThSa [facility] Stop: 12/29/17 13:59 Folic Acid (Folate) 1 mg PO DAILY [facility] Stop: 12/30/17 08:59 Albumin Human (Albuminar 25%) 25 gm in 100 mls @ 50 mls/hr IV PRN PRN PRN Reason: BP Support During HD Stop: 10/30/17 23:00 Miscellaneous (Vte Chemical Prophylaxis Screen/ Admission) 1 ea MC PRN PRN PRN Reason: PROTOCOL Stop: 12/28/17 15:51 Mupirocin (Bactroban Oint) 1 appl TP BID [facility] Stop: 12/29/17 16:59 Lab - Result Diagrams 10/31/17 05:53 10/31/17 05:53 Hgb/Hct remain stable no obvious bleed for HD in am Nutritional Asmnt/Malnutr-PDOC - Dietary Evaluation Malnutrition Findings (Please click <Entered> for more info): Nutritional Asmnt/Malnutrition Start: 10/29/17 16: 46 Text: Status: Complete Freq: Document 10/29/17 16:46 LCHENG (Rec: 10/29/17 17:12 LCHENG [email or web address]) Nutritional Asmnt/Malnutrition Patient General Information Nutritional Screening High Risk Consult Diagnosis Anemia, ESRD Pertinent Medical Hx/Surgical Hx ESRD on dialysis, immunodeficiency disorder, depression, functional paraparesis, multiple myeloma, anemia, asthma/COPD Subjective Information Consult received for hs of malnutrition. Pt seen lying in bed, awake and alert at time of visit. Pt refused lunch, agressive, did not want any food at this time. Pt complained food upset his stomach. Pt has no teeth noted , possibly not able to chew regular textured food. Pt appeared skinny noted. Current Diet Order/ Nutrition Support Renal Pertinent Medications reviewed Pertinent Labs 3/ Na 134, K 3.7, Cl 98, BUN 27, Cr 3.9, glucose 104, Alb 3 .0 Nutritional Hx/Data Height 1.7 m Height (Calculated Centimeters) 170.2 Current Weight (lbs) 43.091 kg Weight (Calculated Kilograms) 43.1 Weight (Calculated Grams) 04182.3 [place] Body Weight 147 % [place] Body Weight 67 Body Mass Index (BMI) 14.8 Weight Status Underweight GI Symptoms GI Symptoms None Last BM no record Difficult in: None Skin Integrity/Comment: reddened to right knee, left lower leg, left knee Estimated Nutritional Goals Calories/Kcals/Kg 25-30 Kcals Calculated 0902-9969 Protein g/k-1.2 Protein Calculated 67-80 Fluid: ml per MD d/t dialysis Nutritional Problem 2. Problem Problem underweight Etiology hx of malnutrition, poor PO intake, chronic ill Signs/Symptoms: BMI 14.9 1. Problem Problem altered nutrition related lab values Etiology hx of ESRD Signs/Symptoms: BUN 27, Cr 3.9 Intervention/Recommendation Comments 1. Receommend modify to purred diet d/t no teeth. RN notified. 2. Recommend oral supplement Novosource Renal BID to increase nutrition intake. 2. Monitor PO intake, wt, labs and skin integrity 3. F/U as high risk in 2-3 days, 3/4-3/5 Expected Outcomes/Goals Expected Outcomes/Goals 1. PO intake to meet at least 75% of nutritional needs with tolerance 2. Wt stability, skin to remain intact, labs to improve
[2017-10-31] MEDS ORDERED: Atorvastatin Calcium 10 MG TAB PO SCH (21:00)
--- NOTE | 2017-11-01 00:21 | Progress Notes ---
DATE: 10/31/2017 PROBLEM LIST: 1. Bilateral infiltrate and possible effusion. 2. Malnutrition. 3. Questionable disorientation. PHYSICAL EXAMINATION: GENERAL: Asymptomatic, no respiratory distress, etc. VITAL SIGNS: Temperature is 97.5, blood pressure 117/80, and saturations in 90s on room air. NECK: Veins not visualized. CHEST: Shows diminished air entry with occasional rhonchi. HEART: Regular. ABDOMEN: Soft, nontender. EXTREMITIES: Shows no peripheral edema. ASSESSMENT: The patient clinically appears to be improved. LABORATORY DATA: The patient's chest x-ray shows some interstitial disease on the right side of the lung. Left side is elevated diaphragm. ASSESSMENT: The patient with a lot of this finding of the x-rays is suggestive of possibly old finding. PLANS AND SUGGESTIONS: We will go ahead and get a CT of the chest. Continue rest of the treatment and go from there. JOB# [id number]
[2017-11-01] MEDS: Albuterol/Ipratropium Neb 3 ML AERS HHN SCH ×4 (01:33→20:04)
[2017-11-01 06:55] LABS: HEMATOCRIT 25.7 % (41.0-60); HEMOGLOBIN 8.6 gm/dL (12-16); MEAN CELL VOLUME 89.6 fl (80-99); MEAN CORPUSCULAR HEMOGLOBIN 29.9 pg (26.0-30.0); MEAN CORPUSCULAR HGB CONC 33.3 pg (28.0-36.0); MEAN PLATELET VOLUME 6.6 fl; PLATELET COUNT 185 Th/cmm (150-400); RED BLOOD COUNT 2.87 Mil/cmm (4.30-5.70)
[2017-11-01 07:25] LABS: % BASOPHILS 0.3 % (0.0-2.0); % EOSINOPHILS 0.9 % (0.0-5.0); % LYMPHOCYTES 32.6 % (20.0-50.0); % MONOCYTES 2.2 % (2.0-10.0); LYMPHOCYTE ABSOLUTE 0.6 Th/cmm (1.5-3.0); NEUTROPHILE ABSOLUTE 1.1 Th/cmm (1.8-8.0)
[2017-11-01 07:26] LABS: WHITE BLOOD COUNT 3.5 Th/cmm (4.8-10.8)
[2017-11-01] MEDS: Budesonide 0.5 Mg/2 mL Ud HHN SCH ×2 (07:26→20:04)
[2017-11-01 09:02] LABS: pH 7.44 (7.35-7.45)
[2017-11-01] MEDS: Vitamin B Complex w/Vitamin C Tab PO SCH ×2 (09:10→09:18)
--- NOTE | 2017-11-01 09:42 | General Progress Note ---
Subjective - Review of Systems Events since last encounter: patient awake nonverbal Objective - Results Result Diagrams: 11/01/17 06:05 10/31/17 05:53 Recent Labs: Laboratory Last Values WBC 3.5 Th/cmm (4.8-10.8) L 11/01/17 06:05 RBC 2.87 Mil/cmm (4.30-5.70) L 11/01/17 06:05 Hgb 8.6 gm/dL (12-16) L 11/01/17 06:05 Hct 25.7 % (41.0-60) L 11/01/17 06:05 MCV 89.6 fl (80-99) 11/01/17 06:05 MCH 29.9 pg (26.0-30.0) 11/01/17 06:05 MCHC Differential 33.3 pg (28.0-36.0) 11/01/17 06:05 RDW 22.0 % (11.5-20.0) H 11/01/17 06:05 Plt Count 185 Th/cmm (150-400) 11/01/17 06:05 MPV 6.6 fl 11/01/17 06:05 Neutrophils % 64.0 % (40.0-80.0) 11/01/17 06:05 Band Neutrophils % 1 % (0-10) 10/30/17 05:45 Lymphocytes % 32.6 % (20.0-50.0) 11/01/17 06:05 Monocytes % 2.2 % (2.0-10.0) 11/01/17 06:05 Eosinophils % 0.9 % (0.0-5.0) 11/01/17 06:05 Basophils % 0.3 % (0.0-2.0) 11/01/17 06:05 Neutrophils (Manual) 66 % (40-80) 10/30/17 05:45 Lymphocytes 30 % (20-50) 10/30/17 05:45 Monocytes 2 % (2-10) 10/30/17 05:45 Eosinophils 1 % (0-5) 10/30/17 05:45 Platelet Estimate ADEQUATE (NORMAL) 10/30/17 05:45 Specimen Source Arterial 11/01/17 09:00 Sample Site RB 11/01/17 09:00 pH 7.44 (7.35-7.45) 11/01/17 09:00 pCO2 46.0 mmHg (35.0-45.0) H 11/01/17 09:00 pO2 69.0 mmHg (80.0-100.0) L 11/01/17 09:00 HCO3 29.6 mEq/L (20.0-26.0) H 11/01/17 09:00 Base Excess 6.1 mEq/L (-3.0-3.0) H 11/01/17 09:00 O2 Saturation 94.0 % (92.0-100.0) 11/01/17 09:00 Bill Test NA 11/01/17 09:00 Vent Rate NA 11/01/17 09:00 Inspired O2 28 11/01/17 09:00 Tidal Volume NA 11/01/17 09:00 PEEP NA 11/01/17 09:00 Pressure (ins/psv/peep) NA 11/01/17 09:00 Critical Value SH 11/01/17 09:00 Sodium 134 mEq/L (136-145) L 10/31/17 05:53 Potassium 4.0 mEq/L (3.5-5.1) 10/31/17 05:53 Chloride 96 mEq/L (98-107) L 10/31/17 05:53 Carbon Dioxide 31.1 mEq/L (21.0-31.0) H 10/31/17 05:53 Anion Gap 10.9 (7.0-16.0) 10/31/17 05:53 BUN 26 mg/dL (7-25) H 10/31/17 05:53 Creatinine 3.7 mg/dL (0.7-1.3) H 10/31/17 05:53 Est GFR ( Amer) 21.7 ml/min (>90) 10/31/17 05:53 Est GFR (Non-Af Amer) 17.9 ml/min 10/31/17 05:53 BUN/Creatinine Ratio 7.0 10/31/17 05:53 Glucose 92 mg/dL (70-105) 10/31/17 05:53 POC Glucose 83 MG/DL (70 - 105) 10/29/17 05:41 Calcium 9.6 mg/dL (8.6-10.3) 10/31/17 05:53 Total Bilirubin 0.5 mg/dL (0.3-1.0) 10/31/17 05:53 Direct Bilirubin 0.15 mg/dL (0.0-0.2) 10/31/17 05:53 AST 16 U/L (13-39) 10/31/17 05:53 ALT 15 U/L (7-52) 10/31/17 05:53 Alkaline Phosphatase 172 U/L (34-104) H 10/31/17 05:53 Ammonia 50 umol/L (16-53) 11/01/17 06:05 Total Protein 6.4 gm/dL (6.0-8.3) 10/31/17 05:53 Albumin 3.0 gm/dL (4.2-5.5) L 10/31/17 05:53 Globulin 3.4 gm/dL 10/31/17 05:53 Albumin/Globulin Ratio 0.9 (1.0-1.8) L 10/31/17 05:53 Serum Immunofixation 662 mg/dL (700-1600) L 10/30/17 05:45 Blood Type B NEGATIVE 10/29/17 03:00 Antibody Screen NEGATIVE 10/29/17 03:00 Crossmatch See Detail 10/29/17 03:00 - Physical Exam Vitals and I&O: Vital Signs Temp 98.4 F 11/01/17 08:00 Pulse 97 11/01/17 08:00 Resp 18 11/01/17 08:00 BP 136/87 11/01/17 08:00 Pulse Ox 97 11/01/17 08:00 Intake & Output 10/31/17 11/01/17 11/01/17 18:59 06:59 18:59 Intake Total 350 150 350 Balance 350 150 350 Weight (lbs) 41.413 kg 41.73 kg 41.413 kg Intake: Oral 350 150 350 Other: # Voids 3 3 3 # Bowel Movements 0 0 0 Stool Characteristics Soft Soft Soft Formed Formed Formed Brown Brown Brown Active Medications: Current Medications Acetaminophen (Tylenol) 650 mg PO Q6H PRN PRN Reason: MILD PAIN Stop: 12/28/17 05:10 Last Admin: 10/31/17 23:02 Dose: 650 mg Acetaminophen (Tylenol) 650 mg PO Q6HR PRN PRN Reason: Fever >101 Stop: 12/29/17 21:09 Albuterol/Ipratropium (Duoneb Neb) 3 ml HHN Q6HRT CECIL Stop: 12/28/17 18:59 Last Admin: 11/01/17 07:26 Dose: 3 ml Atorvastatin Calcium (Lipitor) 40 mg PO HS CECIL Stop: 12/30/17 20:59 Last Admin: 10/31/17 22:09 Dose: 40 mg Budesonide (Pulmicort) 0.5 mg HHN BIDRT CECIL Stop: 12/28/17 18:59 Last Admin: 11/01/17 07:26 Dose: 0.5 mg Docusate Sodium (Colace) 100 mg PO BID CECIL Stop: 12/30/17 08:59 Last Admin: 11/01/17 09:17 Dose: Not Given Epoetin Binu (Epogen) 5,000 units [facility]Q [facility] Stop: 12/29/17 13:59 Last Admin: 10/30/17 16:05 Dose: 5,000 units Folic Acid (Folate) 1 mg PO DAILY CECIL Stop: 12/30/17 08:59 Last Admin: 11/01/17 09:18 Dose: Not Given Miscellaneous (Vte Chemical Prophylaxis Screen/ Admission) 1 ea MC PRN PRN PRN Reason: PROTOCOL Stop: 12/28/17 15:51 Mupirocin (Bactroban Oint) 1 appl TP BID CECIL Stop: 12/29/17 16:59 Last Admin: 11/01/17 09:08 Dose: 1 appl Vitamin B Complex/Vit C/Folic Acid (Vitamin B Complex W/Vitamin C) 1 tab PO DAILY CECIL Stop: 12/30/17 08:59 Last Admin: 11/01/17 09:18 Dose: Not Given General: Alert, No acute distress HEENT: Atraumatic, PERRLA, EOMI, Mucous membr. moist/pink Neck: Supple Cardiovascular: Regular rate, Normal S1, Normal S2 Lungs: Clear to auscultation Abdomen: Bowel sounds, Soft Extremities: no Edema Neurological: Sensation intact Skin: no Rash Psych/Mental Status: Mood NL - Procedures Procedures: Procedures Procedure Code Date BLOOD TRANSFUSION SERVICE 49530 10/29/17 TRANSFUSE NONAUT RED BLOOD CELLS IN PERIPH VEIN, PERC 16669H0 10/29/17 Nutritional Asmnt/Malnutr-PDOC - Dietary Evaluation Malnutrition Findings (Please click <Entered> for more info): Nutritional Asmnt/Malnutrition Start: 10/29/17 16: 46 Text: Status: Complete Freq: Document 10/29/17 16:46 KARANMARILYN (Rec: 10/29/17 17:12 TREVORKaylene [email or web address]) Nutritional Asmnt/Malnutrition Patient General Information Nutritional Screening High Risk Consult Diagnosis Anemia, ESRD Pertinent Medical Hx/Surgical Hx ESRD on dialysis, immunodeficiency disorder, depression, functional paraparesis, multiple myeloma, anemia, asthma/COPD Subjective Information Consult received for hs of malnutrition. Pt seen lying in bed, awake and alert at time of visit. Pt refused lunch, agressive, did not want any food at this time. Pt complained food upset his stomach. Pt has no teeth noted , possibly not able to chew regular textured food. Pt appeared skinny noted. Current Diet Order/ Nutrition Support Renal Pertinent Medications reviewed Pertinent Labs 3/ Na 134, K 3.7, Cl 98, BUN 27, Cr 3.9, glucose 104, Alb 3 .0 Nutritional Hx/Data Height 1.7 m Height (Calculated Centimeters) 170.2 Current Weight (lbs) 43.091 kg Weight (Calculated Kilograms) 43.1 Weight (Calculated Grams) 08635.3 [place] Body Weight 147 % [place] Body Weight 67 Body Mass Index (BMI) 14.8 Weight Status Underweight GI Symptoms GI Symptoms None Last BM no record Difficult in: None Skin Integrity/Comment: reddened to right knee, left lower leg, left knee Estimated Nutritional Goals Calories/Kcals/Kg 25-30 Kcals Calculated 1150-0536 Protein g/k-1.2 Protein Calculated 67-80 Fluid: ml per MD d/t dialysis Nutritional Problem 2. Problem Problem underweight Etiology hx of malnutrition, poor PO intake, chronic ill Signs/Symptoms: BMI 14.9 1. Problem Problem altered nutrition related lab values Etiology hx of ESRD Signs/Symptoms: BUN 27, Cr 3.9 Intervention/Recommendation Comments 1. Receommend modify to purred diet d/t no teeth. RN notified. 2. Recommend oral supplement Novosource Renal BID to increase nutrition intake. 2. Monitor PO intake, wt, labs and skin integrity 3. F/U as high risk in 2-3 days, 3/4-3/5 Expected Outcomes/Goals Expected Outcomes/Goals 1. PO intake to meet at least 75% of nutritional needs with tolerance 2. Wt stability, skin to remain intact, labs to improve
--- NOTE | 2017-11-01 09:59 | General Progress Note ---
Subjective - Review of Systems Service Date: 11/01/17 Objective - Results Result Diagrams: 11/01/17 06:05 10/31/17 05:53 Recent Labs: Laboratory Last Values WBC 3.5 Th/cmm (4.8-10.8) L 11/01/17 06:05 RBC 2.87 Mil/cmm (4.30-5.70) L 11/01/17 06:05 Hgb 8.6 gm/dL (12-16) L 11/01/17 06:05 Hct 25.7 % (41.0-60) L 11/01/17 06:05 MCV 89.6 fl (80-99) 11/01/17 06:05 MCH 29.9 pg (26.0-30.0) 11/01/17 06:05 MCHC Differential 33.3 pg (28.0-36.0) 11/01/17 06:05 RDW 22.0 % (11.5-20.0) H 11/01/17 06:05 Plt Count 185 Th/cmm (150-400) 11/01/17 06:05 MPV 6.6 fl 11/01/17 06:05 Neutrophils % 64.0 % (40.0-80.0) 11/01/17 06:05 Band Neutrophils % 1 % (0-10) 10/30/17 05:45 Lymphocytes % 32.6 % (20.0-50.0) 11/01/17 06:05 Monocytes % 2.2 % (2.0-10.0) 11/01/17 06:05 Eosinophils % 0.9 % (0.0-5.0) 11/01/17 06:05 Basophils % 0.3 % (0.0-2.0) 11/01/17 06:05 Neutrophils (Manual) 66 % (40-80) 10/30/17 05:45 Lymphocytes 30 % (20-50) 10/30/17 05:45 Monocytes 2 % (2-10) 10/30/17 05:45 Eosinophils 1 % (0-5) 10/30/17 05:45 Platelet Estimate ADEQUATE (NORMAL) 10/30/17 05:45 Specimen Source Arterial 11/01/17 09:00 Sample Site RB 11/01/17 09:00 pH 7.44 (7.35-7.45) 11/01/17 09:00 pCO2 46.0 mmHg (35.0-45.0) H 11/01/17 09:00 pO2 69.0 mmHg (80.0-100.0) L 11/01/17 09:00 HCO3 29.6 mEq/L (20.0-26.0) H 11/01/17 09:00 Base Excess 6.1 mEq/L (-3.0-3.0) H 11/01/17 09:00 O2 Saturation 94.0 % (92.0-100.0) 11/01/17 09:00 Bill Test NA 11/01/17 09:00 Vent Rate NA 11/01/17 09:00 Inspired O2 28 11/01/17 09:00 Tidal Volume NA 11/01/17 09:00 PEEP NA 11/01/17 09:00 Pressure (ins/psv/peep) NA 11/01/17 09:00 Critical Value SH 11/01/17 09:00 Sodium 134 mEq/L (136-145) L 10/31/17 05:53 Potassium 4.0 mEq/L (3.5-5.1) 10/31/17 05:53 Chloride 96 mEq/L (98-107) L 10/31/17 05:53 Carbon Dioxide 31.1 mEq/L (21.0-31.0) H 10/31/17 05:53 Anion Gap 10.9 (7.0-16.0) 10/31/17 05:53 BUN 26 mg/dL (7-25) H 10/31/17 05:53 Creatinine 3.7 mg/dL (0.7-1.3) H 10/31/17 05:53 Est GFR ( Amer) 21.7 ml/min (>90) 10/31/17 05:53 Est GFR (Non-Af Amer) 17.9 ml/min 10/31/17 05:53 BUN/Creatinine Ratio 7.0 10/31/17 05:53 Glucose 92 mg/dL (70-105) 10/31/17 05:53 POC Glucose 83 MG/DL (70 - 105) 10/29/17 05:41 Calcium 9.6 mg/dL (8.6-10.3) 10/31/17 05:53 Total Bilirubin 0.5 mg/dL (0.3-1.0) 10/31/17 05:53 Direct Bilirubin 0.15 mg/dL (0.0-0.2) 10/31/17 05:53 AST 16 U/L (13-39) 10/31/17 05:53 ALT 15 U/L (7-52) 10/31/17 05:53 Alkaline Phosphatase 172 U/L (34-104) H 10/31/17 05:53 Ammonia 50 umol/L (16-53) 11/01/17 06:05 Total Protein 6.4 gm/dL (6.0-8.3) 10/31/17 05:53 Albumin 3.0 gm/dL (4.2-5.5) L 10/31/17 05:53 Globulin 3.4 gm/dL 10/31/17 05:53 Albumin/Globulin Ratio 0.9 (1.0-1.8) L 10/31/17 05:53 Serum Immunofixation 662 mg/dL (700-1600) L 10/30/17 05:45 Blood Type B NEGATIVE 10/29/17 03:00 Antibody Screen NEGATIVE 10/29/17 03:00 Crossmatch See Detail 10/29/17 03:00 - Physical Exam Vitals and I&O: Vital Signs Temp 98.4 F 11/01/17 08:00 Pulse 97 11/01/17 08:00 Resp 18 11/01/17 08:00 BP 136/87 11/01/17 08:00 Pulse Ox 97 11/01/17 08:00 Intake & Output 10/31/17 11/01/17 11/01/17 18:59 06:59 18:59 Intake Total 350 150 350 Balance 350 150 350 Weight (lbs) 41.413 kg 41.73 kg 41.413 kg Intake: Oral 350 150 350 Other: # Voids 3 3 3 # Bowel Movements 0 0 0 Stool Characteristics Soft Soft Soft Formed Formed Formed Brown Brown Brown Active Medications: Current Medications Acetaminophen (Tylenol) 650 mg PO Q6H PRN PRN Reason: MILD PAIN Stop: 12/28/17 05:10 Last Admin: 10/31/17 23:02 Dose: 650 mg Acetaminophen (Tylenol) 650 mg PO Q6HR PRN PRN Reason: Fever >101 Stop: 05/02/18 21:09 Albuterol/Ipratropium (Duoneb Neb) 3 ml HHN Q6HRT CECIL Stop: 12/28/17 18:59 Last Admin: 11/01/17 07:26 Dose: 3 ml Atorvastatin Calcium (Lipitor) 40 mg PO HS CECIL Stop: 12/30/17 20:59 Last Admin: 10/31/17 22:09 Dose: 40 mg Budesonide (Pulmicort) 0.5 mg HHN BIDRT [facility] Stop: 12/28/17 18:59 Last Admin: 11/01/17 07:26 Dose: 0.5 mg Docusate Sodium (Colace) 100 mg PO BID CECIL Stop: 12/30/17 08:59 Last Admin: 11/01/17 09:17 Dose: Not Given Epoetin Binu (Epogen) 5,000 units SUBQ TuThSa [facility] Stop: 12/29/17 13:59 Last Admin: 10/30/17 16:05 Dose: 5,000 units Folic Acid (Folate) 1 mg PO DAILY CECIL Stop: 12/30/17 08:59 Last Admin: 11/01/17 09:18 Dose: Not Given Miscellaneous (Vte Chemical Prophylaxis Screen/ Admission) 1 ea [facility] PRN PRN PRN Reason: PROTOCOL Stop: 12/28/17 15:51 Mupirocin (Bactroban Oint) 1 appl TP BID CECIL Stop: 12/29/17 16:59 Last Admin: 11/01/17 09:08 Dose: 1 appl Vitamin B Complex/Vit C/Folic Acid (Vitamin B Complex W/Vitamin C) 1 tab PO DAILY CECIL Stop: 12/30/17 08:59 Last Admin: 11/01/17 09:18 Dose: Not Given General: Alert, No acute distress HEENT: Atraumatic, PERRLA, EOMI, Mucous membr. moist/pink Neck: Supple Cardiovascular: Regular rate, Normal S1, Normal S2 Lungs: Clear to auscultation Abdomen: Bowel sounds, Soft Extremities: no Edema Neurological: Sensation intact Skin: no Rash Psych/Mental Status: Mood NL - Procedures Procedures: Procedures Procedure Code Date BLOOD TRANSFUSION SERVICE 53130 10/29/17 TRANSFUSE NONAUT RED BLOOD CELLS IN PERIPH VEIN, PERC 15071Q4 10/29/17 Assessment/Plan - Assessment Assessment: * H/O multiple myeloma * Anemia * failure to thrive * Hypogammaglobulinemia Follow anemia lemus check free ligh chains Nutritional Asmnt/Malnutr-PDOC - Dietary Evaluation Malnutrition Findings (Please click <Entered> for more info): Nutritional Asmnt/Malnutrition Start: 10/29/17 16: 46 Text: Status: Complete Freq: Document 10/29/17 16:46 LUCY (Rec: 10/29/17 17:12 [email or web address]) Nutritional Asmnt/Malnutrition Patient General Information Nutritional Screening High Risk Consult Diagnosis Anemia, ESRD Pertinent Medical Hx/Surgical Hx ESRD on dialysis, immunodeficiency disorder, depression, functional paraparesis, multiple myeloma, anemia, asthma/COPD Subjective Information Consult received for hs of malnutrition. Pt seen lying in bed, awake and alert at time of visit. Pt refused lunch, agressive, did not want any food at this time. Pt complained food upset his stomach. Pt has no teeth noted , possibly not able to chew regular textured food. Pt appeared skinny noted. Current Diet Order/ Nutrition Support Renal Pertinent Medications reviewed Pertinent Labs 3/2 Na 134, K 3.7, Cl 98, BUN 27, Cr 3.9, glucose 104, Alb 3 .0 Nutritional Hx/Data Height 1.7 m Height (Calculated Centimeters) 170.2 Current Weight (lbs) 43.091 kg Weight (Calculated Kilograms) 43.1 Weight (Calculated Grams) 38153.3 [place] Body Weight 147 % [place] Body Weight 67 Body Mass Index (BMI) 14.8 Weight Status Underweight GI Symptoms GI Symptoms None Last BM no record Difficult in: None Skin Integrity/Comment: reddened to right knee, left lower leg, left knee Estimated Nutritional Goals Calories/Kcals/Kg 25-30 Kcals Calculated 3515-9815 Protein g/k-1.2 Protein Calculated 67-80 Fluid: ml per MD d/t dialysis Nutritional Problem 2. Problem Problem underweight Etiology hx of malnutrition, poor PO intake, chronic ill Signs/Symptoms: BMI 14.9 1. Problem Problem altered nutrition related lab values Etiology hx of ESRD Signs/Symptoms: BUN 27, Cr 3.9 Intervention/Recommendation Comments 1. Receommend modify to purred diet d/t no teeth. RN notified. 2. Recommend oral supplement Novosource Renal BID to increase nutrition intake. 2. Monitor PO intake, wt, labs and skin integrity 3. F/U as high risk in 2-3 days, 3/4-3/5 Expected Outcomes/Goals Expected Outcomes/Goals 1. PO intake to meet at least 75% of nutritional needs with tolerance 2. Wt stability, skin to remain intact, labs to improve
--- NOTE | 2017-11-01 11:35 | Diagnostic Imaging Report ---
CT Chest without IV contrast HISTORY: Pneumonia COMPARISON: Chest x-ray on 10/31/2017. Technique: Axial images were obtained from the base of the neck to the upper abdomen without IV contrast. Reconstructions were made. Total DLP 160, CTD 4.3 Findings: Evaluation of mediastinum is limited due to lack of IV contrast. Borderline prominent mediastinal lymph nodes are noted. Minimal atherosclerosis is noted. The ascending aorta measures up to 3.2 cm. Mild cardiomegaly is noted with trace pericardial fluid. The lung schmitt demonstrate emphysematous changes. Additional hypoventilatory atelectatic changes are seen with patchy infiltrates greatest along the lower lung and bibasal consolidative changes, left greater than right, and trace bilateral pleural fluid. Air bronchograms are seen along the bilateral lung bases. The upper abdomen demonstrates a 3.5 cm low-density hepatic lesion suggestive of a cyst. Additional 2.2 cm lesion is seen with the left lobe of the liver is noted also representing a cyst. Additional subcentimeter low-density lesions are seen to small to characterize. There is a 1.2 cm left renal low-density lesion, probably also a cyst. There is extensive abnormal bony mineralization with numerous spinal compression fractures including advanced compression fractures of T4 and T5 with 3 mm retropulsion of T4 and increase of the thoracic kyphosis at this level. Multiple bilateral old rib fractures are noted. Old sternal fracture is also noted. IMPRESSION: Emphysematous lung changes with bibasal patchy infiltrates and bibasal consolidative changes, left greater than right. There is likely pneumonia of the lower lung zones. Extensive abnormal bony mineralization with numerous spinal compression fractures advanced at T4 and T5 with 3 mm retropulsion of T4 and increase of the thoracic kyphosis at this level. Multiple old bilateral rib fractures and sternal fracture is also noted. Please correlate patient's clinical history as this abnormal bony mineralization may be due to metabolic derangement or possibly metastatic disease. Follow-up is recommended. Mild cardiomegaly and mild atherosclerosis. Borderline prominent mediastinal lymph nodes, nonspecific. Hepatic and left renal cyst. Ultrasound further clarified.
--- NOTE | 2017-11-01 15:09 | General Progress Note ---
Subjective - Review of Systems Service Date: 11/01/17 Subjective: awake, nonverbal Objective - Results Result Diagrams: 11/01/17 06:05 10/31/17 05:53 Recent Labs: Laboratory Last Values WBC 3.5 Th/cmm (4.8-10.8) L 11/01/17 06:05 RBC 2.87 Mil/cmm (4.30-5.70) L 11/01/17 06:05 Hgb 8.6 gm/dL (12-16) L 11/01/17 06:05 Hct 25.7 % (41.0-60) L 11/01/17 06:05 MCV 89.6 fl (80-99) 11/01/17 06:05 MCH 29.9 pg (26.0-30.0) 11/01/17 06:05 MCHC Differential 33.3 pg (28.0-36.0) 11/01/17 06:05 RDW 22.0 % (11.5-20.0) H 11/01/17 06:05 Plt Count 185 Th/cmm (150-400) 11/01/17 06:05 MPV 6.6 fl 11/01/17 06:05 Neutrophils % 64.0 % (40.0-80.0) 11/01/17 06:05 Band Neutrophils % 1 % (0-10) 10/30/17 05:45 Lymphocytes % 32.6 % (20.0-50.0) 11/01/17 06:05 Monocytes % 2.2 % (2.0-10.0) 11/01/17 06:05 Eosinophils % 0.9 % (0.0-5.0) 11/01/17 06:05 Basophils % 0.3 % (0.0-2.0) 11/01/17 06:05 Neutrophils (Manual) 66 % (40-80) 10/30/17 05:45 Lymphocytes 30 % (20-50) 10/30/17 05:45 Monocytes 2 % (2-10) 10/30/17 05:45 Eosinophils 1 % (0-5) 10/30/17 05:45 Platelet Estimate ADEQUATE (NORMAL) 10/30/17 05:45 Specimen Source Arterial 11/01/17 09:00 Sample Site RB 11/01/17 09:00 pH 7.44 (7.35-7.45) 11/01/17 09:00 pCO2 46.0 mmHg (35.0-45.0) H 11/01/17 09:00 pO2 69.0 mmHg (80.0-100.0) L 11/01/17 09:00 HCO3 29.6 mEq/L (20.0-26.0) H 11/01/17 09:00 Base Excess 6.1 mEq/L (-3.0-3.0) H 11/01/17 09:00 O2 Saturation 94.0 % (92.0-100.0) 11/01/17 09:00 Bill Test NA 11/01/17 09:00 Vent Rate NA 11/01/17 09:00 Inspired O2 28 11/01/17 09:00 Tidal Volume NA 11/01/17 09:00 PEEP NA 11/01/17 09:00 Pressure (ins/psv/peep) NA 11/01/17 09:00 Critical Value SH 11/01/17 09:00 Sodium 134 mEq/L (136-145) L 10/31/17 05:53 Potassium 4.0 mEq/L (3.5-5.1) 10/31/17 05:53 Chloride 96 mEq/L (98-107) L 10/31/17 05:53 Carbon Dioxide 31.1 mEq/L (21.0-31.0) H 10/31/17 05:53 Anion Gap 10.9 (7.0-16.0) 10/31/17 05:53 BUN 26 mg/dL (7-25) H 10/31/17 05:53 Creatinine 3.7 mg/dL (0.7-1.3) H 10/31/17 05:53 Est GFR ( Amer) 21.7 ml/min (>90) 10/31/17 05:53 Est GFR (Non-Af Amer) 17.9 ml/min 10/31/17 05:53 BUN/Creatinine Ratio 7.0 10/31/17 05:53 Glucose 92 mg/dL (70-105) 10/31/17 05:53 POC Glucose 83 MG/DL (70 - 105) 10/29/17 05:41 Calcium 9.6 mg/dL (8.6-10.3) 10/31/17 05:53 Total Bilirubin 0.5 mg/dL (0.3-1.0) 10/31/17 05:53 Direct Bilirubin 0.15 mg/dL (0.0-0.2) 10/31/17 05:53 AST 16 U/L (13-39) 10/31/17 05:53 ALT 15 U/L (7-52) 10/31/17 05:53 Alkaline Phosphatase 172 U/L (34-104) H 10/31/17 05:53 Ammonia 50 umol/L (16-53) 11/01/17 06:05 Total Protein 6.4 gm/dL (6.0-8.3) 10/31/17 05:53 Albumin 3.0 gm/dL (4.2-5.5) L 10/31/17 05:53 Globulin 3.4 gm/dL 10/31/17 05:53 Albumin/Globulin Ratio 0.9 (1.0-1.8) L 10/31/17 05:53 Serum Immunofixation 662 mg/dL (700-1600) L 10/30/17 05:45 Blood Type B NEGATIVE 10/29/17 03:00 Antibody Screen NEGATIVE 10/29/17 03:00 Crossmatch See Detail 10/29/17 03:00 - Physical Exam Vitals and I&O: Vital Signs Temp 98.4 F 11/01/17 08:00 Pulse 98 11/01/17 13:21 Resp 16 11/01/17 13:21 BP 136/87 11/01/17 08:00 Pulse Ox 95 11/01/17 13:21 Intake & Output 10/31/17 11/01/17 11/01/17 18:59 06:59 18:59 Intake Total 350 150 350 Balance 350 150 350 Weight (lbs) 41.413 kg 41.73 kg 41.413 kg Intake: Oral 350 150 350 Other: # Voids 3 3 3 # Bowel Movements 0 0 0 Stool Characteristics Soft Soft Soft Formed Formed Formed Brown Brown Brown Active Medications: Current Medications Acetaminophen (Tylenol) 650 mg PO Q6H PRN PRN Reason: MILD PAIN Stop: 12/28/17 05:10 Last Admin: 10/31/17 23:02 Dose: 650 mg Acetaminophen (Tylenol) 650 mg PO Q6HR PRN PRN Reason: Fever >101 Stop: 12/29/17 21:09 Albuterol/Ipratropium (Duoneb Neb) 3 ml HHN Q6HRT CECIL Stop: 12/28/17 18:59 Last Admin: 11/01/17 13:19 Dose: 3 ml Atorvastatin Calcium (Lipitor) 40 mg PO HS [facility] Stop: 12/30/17 20:59 Last Admin: 10/31/17 22:09 Dose: 40 mg Budesonide (Pulmicort) 0.5 mg HHN BIDRT CECIL Stop: 12/28/17 18:59 Last Admin: 11/01/17 07:26 Dose: 0.5 mg Docusate Sodium (Colace) 100 mg PO BID [facility] Stop: 12/30/17 08:59 Last Admin: 11/01/17 09:17 Dose: Not Given Epoetin Binu (Epogen) 5,000 units SUBQ TuThSa [facility] Stop: 12/29/17 13:59 Last Admin: 10/30/17 16:05 Dose: 5,000 units Folic Acid (Folate) 1 mg PO DAILY [facility] Stop: 12/30/17 08:59 Last Admin: 11/01/17 09:18 Dose: Not Given Miscellaneous (Vte Chemical Prophylaxis Screen/ Admission) 1 ea MC PRN PRN PRN Reason: PROTOCOL Stop: 12/28/17 15:51 Mupirocin (Bactroban Oint) 1 appl TP BID [facility] Stop: 12/29/17 16:59 Last Admin: 11/01/17 09:08 Dose: 1 appl Vitamin B Complex/Vit C/Folic Acid (Vitamin B Complex W/Vitamin C) 1 tab PO DAILY [facility] Stop: 12/30/17 08:59 Last Admin: 11/01/17 09:18 Dose: Not Given General: Alert, No acute distress HEENT: Atraumatic, PERRLA, EOMI, Mucous membr. moist/pink Neck: Supple Cardiovascular: Regular rate, Normal S1, Normal S2 Lungs: Clear to auscultation Abdomen: Bowel sounds, Soft Extremities: no Edema Neurological: Sensation intact Skin: no Rash Psych/Mental Status: Mood NL - Procedures Procedures: Procedures Procedure Code Date BLOOD TRANSFUSION SERVICE 49603 10/29/17 TRANSFUSE NONAUT RED BLOOD CELLS IN PERIPH VEIN, PERC 88667U1 10/29/17 Assessment/Plan - Assessment Assessment: ESRD on HD Severe Anemia COPD MM Type 2 DM Ess Htn Severe Malnutrition CHF - Plan Plan: Lab - Result Diagrams 10/30/17 05:45 10/29/17 07:00 Current Medications Acetaminophen (Tylenol) 650 mg PO Q6H PRN PRN Reason: MILD PAIN Stop: 12/28/17 05:10 Last Admin: 10/29/17 05:39 Dose: 650 mg Albuterol/Ipratropium (Duoneb Neb) 3 ml HHN Q6HRT [facility] Stop: 12/28/17 18:59 Last Admin: 10/30/17 11:47 Dose: 3 ml Budesonide (Pulmicort) 0.5 mg HHN BIDRT [facility] Stop: 12/28/17 18:59 Last Admin: 10/30/17 07:38 Dose: 0.5 mg Epoetin Binu (Epogen) 5,000 units SUBQ TuThSa [facility] Stop: 12/29/17 13:59 Folic Acid (Folate) 1 mg PO DAILY [facility] Stop: 12/30/17 08:59 Albumin Human (Albuminar 25%) 25 gm in 100 mls @ 50 mls/hr IV PRN PRN PRN Reason: BP Support During HD Stop: 10/30/17 23:00 Miscellaneous (Vte Chemical Prophylaxis Screen/ Admission) 1 ea MC PRN PRN PRN Reason: PROTOCOL Stop: 12/28/17 15:51 Mupirocin (Bactroban Oint) 1 appl TP BID [facility] Stop: 12/29/17 16:5 Lab - Result Diagrams 11/01/17 06:05 10/31/17 05:53 currently being dialyzed & tolerating it well Hgb/Hct remain stable no obvious bleed Nutritional Asmnt/Malnutr-PDOC - Dietary Evaluation Malnutrition Findings (Please click <Entered> for more info): Nutritional Asmnt/Malnutrition Start: 10/29/17 16: 46 Text: Status: Complete Freq: Document 10/29/17 16:46 FAUZIA (Rec: 10/29/17 17:12 FAUZIA [id number]) Nutritional Asmnt/Malnutrition Patient General Information Nutritional Screening High Risk Consult Diagnosis Anemia, ESRD Pertinent Medical Hx/Surgical Hx ESRD on dialysis, immunodeficiency disorder, depression, functional paraparesis, multiple myeloma, anemia, asthma/COPD Subjective Information Consult received for hs of malnutrition. Pt seen lying in bed, awake and alert at time of visit. Pt refused lunch, agressive, did not want any food at this time. Pt complained food upset his stomach. Pt has no teeth noted , possibly not able to chew regular textured food. Pt appeared skinny noted. Current Diet Order/ Nutrition Support Renal Pertinent Medications reviewed Pertinent Labs 3/2 Na 134, K 3.7, Cl 98, BUN 27, Cr 3.9, glucose 104, Alb 3 .0 Nutritional Hx/Data Height 1.7 m Height (Calculated Centimeters) 170.2 Current Weight (lbs) 43.091 kg Weight (Calculated Kilograms) 43.1 Weight (Calculated Grams) 84369.3 Briggs Body Weight 147 % Briggs Body Weight 67 Body Mass Index (BMI) 14.8 Weight Status Underweight GI Symptoms GI Symptoms None Last BM no record Difficult in: None Skin Integrity/Comment: reddened to right knee, left lower leg, left knee Estimated Nutritional Goals Calories/Kcals/Kg 25-30 Kcals Calculated 4380-3526 Protein g/k-1.2 Protein Calculated 67-80 Fluid: ml per MD d/t dialysis Nutritional Problem 2. Problem Problem underweight Etiology hx of malnutrition, poor PO intake, chronic ill Signs/Symptoms: BMI 14.9 1. Problem Problem altered nutrition related lab values Etiology hx of ESRD Signs/Symptoms: BUN 27, Cr 3.9 Intervention/Recommendation Comments 1. Receommend modify to purred diet d/t no teeth. RN notified. 2. Recommend oral supplement Novosource Renal BID to increase nutrition intake. 2. Monitor PO intake, wt, labs and skin integrity 3. F/U as high risk in 2-3 days, 10/31-3/5 Expected Outcomes/Goals Expected Outcomes/Goals 1. PO intake to meet at least 75% of nutritional needs with tolerance 2. Wt stability, skin to remain intact, labs to improve
[2017-11-02 05:12] LABS: FERRITIN 2571 ng/mL (30-400); FOLIC ACID 3.8 ng/mL (>3.0); IRON LC 69 ug/dL (38-169); TIBC (LC) 143 ug/dL (250-450); UIBC 74 ug/dL (111-343)
--- NOTE | 2017-11-03 17:38 | Discharge Summary ---
DATE OF DISCHARGE: 11/01/2017 HOSPITAL COURSE: The patient was admitted because of severe anemia for a blood transfusion. The patient known to have history of bone marrow problem, history of multiple myeloma, history of severe bilateral leg weakness, functional paralysis. Also the patient has end-stage renal disease, anemia, and also has history of asthma, history of COPD. The patient was admitted and I had called Dr. Solorzano. He also noted the patient has severe malnutrition and has a pelvic mass. The patient paralyzed, he felt better and he was given blood transfusion and his hemoglobin came back up and patient was in stable condition and patient was discharged back to where I will follow the patient with a final diagnosis of anemia, improved; history of renal disease; COPD; multiple myeloma; history of anemia; essential hypertension; history of severe malnutrition; congestive heart failure; history of pelvic mass, and history of paraparesis. MEDICATIONS: See the reconciliation sheet. DIET: See the reconciliation. ACTIVITY: As tolerated. JOB# [id number]
== END 2017-11-01 20:35 | disposition home or self-care (01) | DRG 291 ==
LOC: ER 23:36 → MSI 10-29 01:50
PROVIDERS: ADMIT Internal Medicine; ATTEND Internal Medicine
PROC: 30233N1 Transfusion of Nonautologous Red Blood Cells into Peripheral Vein, Percutaneous Approach (ICD-10-PCS; principal; 2017-10-29)
PROC: 5A1D70Z Performance of Urinary Filtration, Intermittent, Less than 6 Hours Per Day (ICD-10-PCS; 2017-11-01)
DX: I13.2 Hypertensive heart and chronic kidney disease with heart failure and with stage 5 chronic kidney disease, or end stage renal disease (principal); N18.6 End stage renal disease; E43 Unspecified severe protein-calorie malnutrition; C90.00 Multiple myeloma not having achieved remission; E11.22 Type 2 diabetes mellitus with diabetic chronic kidney disease; D80.1 Nonfamilial hypogammaglobulinemia; G82.20 Paraplegia, unspecified; Z68.1 Body mass index [BMI] 19.9 or less, adult; J44.9 Chronic obstructive pulmonary disease, unspecified; D63.1 Anemia in chronic kidney disease; I50.9 Heart failure, unspecified; F32.9 Major depressive disorder, single episode, unspecified; R19.00 Intra-abdominal and pelvic swelling, mass and lump, unspecified site; R62.7 Adult failure to thrive; Z99.2 Dependence on renal dialysis
CPT/HCPCS: 36415-UA; 36600-90; 71045-TC; 71250-TC; 80048-TC; 80053-TC; 80076-TC; 82140-TC; 82607-90; 82728-90; 82746-90; 82784-90; 82803-TC; 82948-90; 83540-90; 83550-90; 85007-TC; 85025-TC; 85027-TC; 86334-90; 86850-TC; 86900-TC; 86901-TC; 86922-TC; 90937; 94640; 94760; J0885; J1644; J7030; J7040; P9016; Z7610

== ENCOUNTER 2017-11-19 23:22 | Inpatient (IN) | payer MEDICARE, MEDICAID ==
--- NOTE | 2017-11-20 00:19 | ED Physician Chart ---
ED Chief Complaint/HPI - Patient Information Date Seen:: 11/20/17 Time Seen:: 23:40 Chief Complaint:: ANEMIA History of Present Illness:: THIS IS A 62 YO MALE ESRD PATIENT SENT TO THIS ER FOR AN EVALUATION BECAUSE HIS BLOOD COUNT WAS LOW. HE HAS BEEN HERE BEFORE FOR THE SAME REASON. THE PATIENT WAS AT DIALYSIS TODAY AND SENT HERE AFTER LABS RETURNED. THE PATIENT HAS MULTIPLE MYOLOMA. Allergies:: Allergies Allergy/AdvReac Type Severity Reaction Status Date / Time No Known Allergies Allergy Verified 10/28/17 23:42 Vitals:: Vital Signs - 8 hr 11/19/17 23:30 Temp 98.2 F HR 90 RR 18 BP 145/84 O2 Sat % 98 Historian:: Patient, Medical Records Review:: Nurse's Note Reviewed ED Review of Systems - Review of Systems General/Constitutional: No fever, No chills, No weight loss, Weakness, No diaphoresis, No edema, No loss of appetite Skin: No skin lesions, No rash, No bruising Head: No headache, No light-headedness Eyes: No loss of vision, No pain, No diplopia ENT: No earache, No nasal drainage, Sore throat, No tinnitus Neck: No neck pain, No swelling, No thyromegaly, No stiffness, No mass noted Cardio Vascular: No chest pain, No palpitations, No PND, No orthopnea, No edema Pulmonary: No SOB, No cough, No sputum, No wheezing GI: No nausea, No vomiting, No diarrhea, No pain, No melena, No hematochezia, No constipation, No hematemesis G/U: No dysuria, No frequency, No hematuria Musculoskeletal: No bone or joint pain, No back pain, No muscle pain Endocrine: No polyuria, No polydipsia Psychiatric: No prior psych history, No depression, No anxiety, No suicidal ideation Hematopoietic: No bruising, No lymphadenopathy Allergic/Immuno: No urticaria, No angioedema Neurological: No syncope, No focal symptoms, No weakness, No paresthesia, No headache, No seizure, No dizziness, No confusion, No vertigo ED Past Medical History - Past Medical History Obtainable: Yes Past Medical History: HTN, ESRD Family History: None Social History: Non Smoker, No Alcohol, No Drug Use, Care Facility Family Medical History - Family Member Mother History Unknown: Yes Ethnicity: Unknown Living Status: Unknown Hx Family Cancer: No Hx Family Coronary Artery Disease: No Hx Family Congestive Heart Failure: No Hx Family Hypertension: No Hx Family Stroke: No Hx Family Diabetes: No Hx Family Seizures: No Hx Family Dementia: No Hx Family AIDS: No Hx Family HIV: No Hx Family COPD: No Hx Family Hepatitis: No Hx Family Psychiatric Problems: No Hx Family Tuberculosis: No ED Physical Exam - Physical Examination General/Constitutional: Awake, Well-developed, well-nourished, Alert, No distress, GCS 15, Non-toxic appearing, Ambulatory Other Gen/Cons comments:: THIN AWAKE AND ALERT AND ORIENTED TIMES FOUR Head: Atraumatic Eyes: Lids, conjuctiva normal, PERRL, EOMI Skin: Nl inspection, No rash, No skin lesions, No ecchymosis, Well hydrated, No lymphadenopathy ENMT: External ears, nose nl, Nasal exam nl, Lips, teeth, gums nl Neck: Nontender, Full ROM w/o pain, No JVD, No nuchal rigidity, No bruit, No mass, No stridor Respiratory: Nl effort/Exclusion, Clear to Auscultation, No Wheeze/Rhonchi/Rales Cardio Vascular: RRR, No murmur, gallop, rubs, NL S1 S2 Other Cardio Vascular comments:: HEART BEAT 94 PER MINUTES. GI: No tenderness/rebounding/guarding, No organomegaly, No hernia, Normal BS's, Nondistended, No mass/bruits, No McBurney tenderness : No CVA tenderness Extremities: No tenderness or effusion, Full ROM, normal strength in all extremities, No edema, Normal digits & nails Other Extremities comments:: LEFT UPPER ARM ACCESS SITE LOOKS CLEAN Neuro/Psych: Alert/oriented, DTR's symmetric, Normal sensory exam, Normal motor strength, Judgement/insight normal, Mood normal, Normal gait, No focal deficits Misc: Normal back, No paraspinal tenderness ED Labs/Radiology/EKG Results - Lab Results Results: Abnormal Lab Results 11/20/17 11/20/17 11/20/17 00:10 00:10 00:10 WBC 4.3 L RBC 2.41 L Hgb 7.4 L* Hct 22.5 L MCV 93.3 MCH 30.5 H MCHC Differential 32.7 RDW 23.8 H Plt Count 240 MPV 6.1 PT 10.3 INR 0.99 PTT (Actin FS) 22.5 L Sodium 137 Potassium 3.2 L Chloride 98 Carbon Dioxide 31.1 H Anion Gap 11.1 BUN 10 Creatinine 2.0 H Est GFR ( Amer) 44.1 Est GFR (Non-Af Amer) 36.4 BUN/Creatinine Ratio 5.0 Glucose 104 Calcium 8.8 Total Bilirubin 0.5 AST 18 ALT 13 Alkaline Phosphatase 143 H Total Protein 6.6 Albumin 3.3 L Globulin 3.3 Albumin/Globulin Ratio 1.0 - EKG Interpretations EKG Time:: 23:59 Rate & Rhythm: RATE = 89, NSR [place]: RIGHT AXIS ED Assessment - Assessment General Assessment: SEVERE ANEMIA ED Septic Shock - . Is Septic Shock (SBP<90, OR Lactate>4 mmol\L) present?: No - <6hrs of presentation: Vital Signs: Vital Signs - 8 hr 11/19/17 23:30 Temp 98.2 F HR 90 RR 18 BP 145/84 O2 Sat % 98 ED Reassessment (Disposition) - Reassessment Reassessment Condition:: Unchanged - Diagnosis Diagnosis:: ANEMIA - Patient Disposition Discharge/Transfer:: Acute Care w/in this hosp Admitting Medical Physician:: Demetrius Ervin Condition at Disposition:: Improved ED Discharge Plan - Patient Disposition Admit/Discharge/Transfer: Acute Care w/in this hosp Condition at Disposition: Improved
[2017-11-20 00:29] LABS: MEAN CELL VOLUME 93.3 fl (80-99); MEAN CORPUSCULAR HEMOGLOBIN 30.5 pg (26.0-30.0); MEAN CORPUSCULAR HGB CONC 32.7 pg (28.0-36.0); MEAN PLATELET VOLUME 6.1 fl; PLATELET COUNT 240 Th/cmm (150-400); RED CELL DISTRIBUTION WIDTH 23.8 % (11.5-20.0)
[2017-11-20 00:51] LABS: HEMATOCRIT 22.5 % (41.0-60); HEMOGLOBIN 7.4 gm/dL (12-16)
[2017-11-20 00:52] LABS: INR 0.99 (0.5-1.4); PROTHROMBIN TIME (TEST) 10.3 SECONDS (9.5-11.5); RED BLOOD COUNT 2.41 Mil/cmm (4.30-5.70); WHITE BLOOD COUNT 4.3 Th/cmm (4.8-10.8)
[2017-11-20 00:54] LABS: ALBUMIN 3.3 gm/dL (4.2-5.5); ANION GAP 11.1 (7.0-16.0); BILIRUBIN,TOTAL 0.5 mg/dL (0.3-1.0); CALCIUM SERUM 8.8 mg/dL (8.6-10.3); CARBON DIOXIDE 31.1 mEq/L (21.0-31.0); GFR AFRICAN-AMERICAN 44.1 ml/min (>90); GFR NON AFRICAN-AMERICAN 36.4 ml/min; POTASSIUM SERUM 3.2 mEq/L (3.5-5.1); TOTAL PROTEIN,SERUM 6.6 gm/dL (6.0-8.3)
[2017-11-20 02:46] VITALS: BP 144/90
[2017-11-20 03:31] LABS: MANUAL DIFF REQUIRED? YES
[2017-11-20 03:32] LABS: ANISOCYTOSIS 2+; BAND NEUTROPHILE 0 % (0-10); BASOPHIL 0 % (0-3); EOSINOPHIL 0 % (0-5); LYMPHOCYTE 24 % (20-50); MONOCYTE 4 % (2-10); NEUTROPHILS 72 % (40-80); PLATELET ESTIMATE ADEQUATE (NORMAL); PLATELET MORPHOLOGY NORMAL (NORMAL); TOTAL CELLS COUNTED 100
[2017-11-20 03:33] LABS: POLYCHROMASIA 2+
[2017-11-20 09:48] LABS: ANION GAP 11.1 (7.0-16.0); CALCIUM SERUM 9.2 mg/dL (8.6-10.3); CARBON DIOXIDE 30.4 mEq/L (21.0-31.0); CREATININE - SERUM 2.5 mg/dL (0.7-1.3); GFR NON AFRICAN-AMERICAN 28.1 ml/min; POTASSIUM SERUM 3.5 mEq/L (3.5-5.1)
[2017-11-20 10:14] LABS: RED BLOOD COUNT 2.72 Mil/cmm (4.30-5.70)
[2017-11-20 10:16] LABS: HEMATOCRIT 24.8 % (41.0-60); HEMOGLOBIN 8.3 gm/dL (12-16); MEAN CELL VOLUME 91.2 fl (80-99); MEAN CORPUSCULAR HEMOGLOBIN 30.4 pg (26.0-30.0); MEAN CORPUSCULAR HGB CONC 33.4 pg (28.0-36.0); MEAN PLATELET VOLUME 6.6 fl; PLATELET COUNT 219 Th/cmm (150-400); RED CELL DISTRIBUTION WIDTH 23.3 % (11.5-20.0)
[2017-11-20 10:21] LABS: MANUAL DIFF REQUIRED? YES
[2017-11-20 10:37] LABS: BAND NEUTROPHILE 4 % (0-10); LYMPHOCYTE 18 % (20-50); MONOCYTE 1 % (2-10); NEUTROPHILS 77 % (40-80); TOTAL CELLS COUNTED 100
[2017-11-20 10:38] LABS: ANISOCYTOSIS 2+; POIKILOCYTOSIS 1+; POLYCHROMASIA 1+
[2017-11-20 10:39] LABS: PLATELET ESTIMATE ADEQUATE (NORMAL); PLATELET MORPHOLOGY NORMAL (NORMAL)
[2017-11-20] MEDS ORDERED: EPOETIN ALFA SQ SCH (14:30)
[2017-11-20] MEDS ORDERED: Non-Formulary Item 1 EA (Docusate Sodium [Docusate Sodium] 100 MG) PO SCH (17:00)
[2017-11-20] MEDS ORDERED: Non-Formulary Item 1 EA (Atorvastatin Calcium [Lipitor] 40 MG) PO SCH (21:00)
--- NOTE | 2017-11-20 21:11 | History & Physical ---
ADMIT DATE: 11/20/2017 HISTORY OF PRESENT ILLNESS: The patient is a 62-year-old male. The patient came to the ER because in the care home, his hemoglobin was below 7 and also the patient known to have ESRD and the patient known to have history of dementia and history of severe neuropathy and he is on hemodialysis. The patient also has history of multiple myeloma and the patient was seen in the Emergency Room, was admitted. The patient complained of no chest pain, no shortness of breath, no vomiting, no dysuria, no bony pain, no polyuria. Has a history of depression. No urticaria. No syncope. The patient has history of hypertension, ESRD and the patient has history of multiple myeloma. PHYSICAL EXAMINATION: GENERAL: The patient is awake, alert, looks pale and slightly short of breath. HEAD: Normal. ENT: Normal. LUNGS: Bilaterally decreased. CARDIOVASCULAR SYSTEM: S1, S2 heard. ABDOMEN: Soft. Bowel sounds are heard. CENTRAL NERVOUS SYSTEM: Grossly normal. LABORATORY AND DIAGNOSTIC DATA: Hemoglobin was low. His platelet was 240. INR was 0.99. His electrolytes, BUN, creatinine were high 10 and 2.0. The patient's EKG showed right axis deviation and has normal sinus rhythm. DIAGNOSES: Severe anemia; history of multiple myeloma; history of chronic renal failure, on hemodialysis; dementia; polyneuropathy; weight loss; failure to thrive; malnutrition; history of hepatitis C. PLAN: The patient is being admitted. I will go ahead and give him a blood transfusion and I will have Dr. Phelps see the patient and also I will have Dr. Solorzano see the patient and the patient needs dialysis. [facility]# [id number]
--- NOTE | 2017-11-20 21:52 | Consultation ---
DATE OF CONSULTATION: 11/20/2017 REASON FOR CONSULTATION: Electrolyte imbalance and fluid management. HISTORY OF PRESENT ILLNESS: This is a 62-year-old male with past medical history of end-stage renal disease, on hemodialysis, who was brought in because of anemia. Few hours prior to admission, the patient had labs drawn, which revealed hemoglobin of 7.2. He was then transferred to Emergency Room. His hemoglobin/hematocrit at the Emergency Room were 7.4/22.5. He was transfused 1 unit packed RBC. His hemoglobin/hematocrit improved to 8.3/24.8. He had no episodes of hematemesis, hemoptysis, epistaxis, melena, hematochezia, hematuria nor hemarthrosis. He has a history of multiple myeloma as well as end-stage renal disease. PAST MEDICAL HISTORY: 1. End-stage renal disease, on hemodialysis. 2. COPD. 3. Multiple myeloma. 4. Anemia. 5. Type 2 diabetes mellitus. 6. Essential hypertension. 7. Malnutrition. 8. History of CHF. 9. History of pelvic mass. CURRENT MEDICATIONS: He is currently on acetaminophen, atorvastatin, clonidine, diphenhydramine, docusate sodium, vitamin B, Epogen. ALLERGIES: No known drug allergies. SOCIAL AND FAMILY HISTORY: I was unable to obtain from the patient because he remains uncooperative and does not respond to inquiries. REVIEW OF SYSTEMS: As mentioned above, the patient remains uncooperative and would not respond to my inquiries. PHYSICAL EXAMINATION: GENERAL: The patient is somewhat drowsy, but not in any form of distress. VITAL SIGNS: His blood pressure is 155/85, pulse 92, temperature 97.4 degrees. SKIN: Poor turgor, warm, no rash, no jaundice appreciated. HEENT: Head normocephalic, atraumatic. Eyes: Extraocular muscles intact. Pupils equal, round, reactive to light and accommodates. Anicteric sclerae. Pale conjunctivae. Nose: Midline nasal septum. Mouth, moist mucosa. Poor dentition. NECK: Supple, no adenopathy, no thyromegaly, no bruits. Trachea palpated in the midline. CHEST AND CVS: S1, S2. No rub, murmur nor gallop appreciated. Point of maximal impulse fifth intercostal space, left midclavicular line. No abdominal or femoral bruits appreciated. LUNGS: Equal expansion. No use of accessory muscles. No supraclavicular retractions. Decreased breath sounds but a few rhonchi, but no rales nor wheezes appreciated. ABDOMEN: Flat, soft, positive for bowel sounds. No bruits either diastolic or systolic. RECTAL: Deferred. GENITOURINARY: Normal appearing male genitalia. MUSCULOSKELETAL: No effusions present in his joints, but unable to assess his range of motion. EXTREMITIES: No evidence of edema, cyanosis nor clubbing with palpable femoral, but unable to fully appreciate popliteal and dorsalis pedis pulses. NEUROLOGIC: The patient, as mentioned, is awake, but drowsy, uncooperative, so I was not able to pursue further my neuro exam. LABORATORY DATA: Did reveal a white count of 4, hemoglobin 8.3, hematocrit 24.8, platelets 219, polys 77%. Sodium 135, potassium 3.5, chloride 97, bicarbonate is 30, BUN 13, creatinine 2.5, glucose 109, calcium 9.2. IMPRESSION: 1. Recurrent acute on chronic anemia, likely secondary to multiple myeloma as well as chronic kidney disease. 2. End-stage renal disease, on hemodialysis. 3. Chronic obstructive pulmonary disease. 4. Multiple myeloma. 5. Type 2 diabetes mellitus with chronic kidney disease. 6. Essential hypertension with chronic kidney disease. 7. Severe malnutrition. 8. History of congestive heart failure. 9. Pelvic mass. PLAN: 1. Transfuse as necessary. 2. Follow up CBC. 3. Hemodialysis as scheduled. JOB# [id number]
--- NOTE | 2017-11-21 | Consultation ---
Consult Note - Consult Note Service Date: 11/20/17 Referring Physician: Demetrius Ervin Consult Note: PHYSICIAN Consultation Note: Date of Admission: 11/20/17 Purpose of Consultation: Chief Complaint: dictated. History of Present Illness: Patient LLOYD MINER was admitted to [facility] with SEVERE ANEMIA. Past Medical History: Allergies Allergy/AdvReac Type Severity Reaction Status Date / Time No Known Allergies Allergy Verified 10/28/17 23:42 Vital Signs Temp 97.9 F 11/20/17 20:00 Pulse 92 11/20/17 20:00 Resp 18 11/20/17 20:00 BP 144/96 11/20/17 20:00 Pulse Ox 93 11/20/17 20:00 Intake & Output 11/20/17 11/20/17 11/21/17 06:59 18:59 06:59 Intake Total 250 200 Balance 250 200 Weight (lbs) 43.8 kg 43.681 kg Intake: Oral 200 Blood Product 250 Other: # Voids 3 # Bowel Movements 2 Stool Characteristics Soft Formed [facility] Results - last 24 hr 11/20/17 11/20/17 11/20/17 09:20 09:20 09:20 WBC 4.0 L RBC 2.72 L Hgb 8.3 L Hct 24.8 L MCV 91.2 MCH 30.4 H MCHC Differential 33.4 RDW 23.3 H Plt Count 219 MPV 6.6 Band Neutrophils % 4 Neutrophils (Manual) 77 Lymphocytes 18 L Monocytes 1 L Platelet Estimate ADEQUATE Platelet Morphology NORMAL Polychromasia 1+ Poikilocytosis 1+ Anisocytosis 2+ RBC Morph Micro Appear ABNORMAL Sodium 135 L Potassium 3.5 Chloride 97 L Carbon Dioxide 30.4 Anion Gap 11.1 BUN 13 Creatinine 2.5 H Est GFR ( Amer) 34.0 Est GFR (Non-Af Amer) 28.1 BUN/Creatinine Ratio 5.2 Glucose 109 H Calcium 9.2 Triglycerides 96 Cholesterol 151 LDL Cholesterol Direct 38 L HDL Cholesterol 84 TSH 1.39 Stool Occult Blood 11/20/17 17:36 WBC RBC Hgb Hct MCV MCH MCHC Differential RDW Plt Count MPV Band Neutrophils % Neutrophils (Manual) Lymphocytes Monocytes Platelet Estimate Platelet Morphology Polychromasia Poikilocytosis Anisocytosis RBC Morph Micro Appear Sodium Potassium Chloride Carbon Dioxide Anion Gap BUN Creatinine Est GFR ( Amer) Est GFR (Non-Af Amer) BUN/Creatinine Ratio Glucose Calcium Triglycerides Cholesterol LDL Cholesterol Direct HDL Cholesterol TSH Stool Occult Blood NEGATIVE Home Medication Medication Instructions Recorded Type Acetaminophen [Tylenol] 650 mg PO Q6HR PRN 10/29/17 History Amino Acids/Protein Hydr/Fiber 30 ml PO DAILY 10/29/17 History [Pro-Stat Renal Care 887 ml] Atorvastatin Calcium [Lipitor] 40 mg PO HS 10/29/17 History Clonidine HCl [Catapres] 0.1 mg PO Q6HR PRN 10/29/17 History Docusate Sodium 100 mg PO BID 10/29/17 History Epoetin Binu [Epogen] 100 mcg SQ ARPAN 10/29/17 History Folic Acid/Vit Bcomp,C [Renal-Darrin 0.8 mg PO DAILY 10/29/17 History Tablet] Diphenhydramine HCl [Benadryl] 25 mg PO Q6HR PRN 11/20/17 History Current Medications Generic Name Dose Route Start Last Admin Trade Name Freq PRN Reason Stop Dose Admin Acetaminophen 650 mg 11/20/17 05:04 11/20/17 20:49 Tylenol PO 01/19/18 05:03 650 mg Q6H PRN Administration Pain or Fever >101 Acetaminophen 650 mg 11/20/17 14:18 Tylenol PO 01/19/18 14:17 Q6HR PRN Pain or Fever >101 Atorvastatin Calcium 40 mg 11/20/17 21:00 11/20/17 20:49 Lipitor PO 01/19/18 20:59 40 mg HS CECIL Administration Diphenhydramine HCl 25 mg 11/20/17 14:18 Benadryl PO 01/19/18 14:17 Q6HR PRN Itching Docusate Sodium 100 mg 11/20/17 17:00 11/20/17 16:35 Colace PO 01/19/18 16:59 100 mg BID CECIL Administration Miscellaneous 100 mcg 11/20/17 14:30 Epoetin Binu [Epogen] SQ 01/19/18 14:29 ARPAN CECIL Vitamin B Complex/Vit C/Folic Acid 1 tab 11/21/17 09:00 Vitamin B Complex W/Vitamin C PO 01/20/18 08:59 DAILY CECIL Review of Systems: A 12 point ROS was reviewed with the pertinent positive and negatives noted in the HPI. Social History Smoking Status Former smoker Family Medical History Family Medical History Start: 11/20/17 01: 40 Freq: ONCE Status: Active Document 11/20/17 02:55 BRIT (Rec: 11/20/17 02:55 BRIT [id number]) Family Medical History Mother History Unknown Yes Physical Exam: General: HEENT: Neck: Cardio: Respiratory: Abdominal: Genital/Urinary: Extremities: Neurological: Assessment: Plan: Signed, Albert Phelps M.D.
--- NOTE | 2017-11-21 02:43 | Consultation ---
DATE OF CONSULTATION: 11/21/2017 INFECTIOUS DISEASE CONSULTATION REFERRING PHYSICIAN: Dr. Ervin. REASON FOR CONSULTATION: Chronic hepatitis C. HISTORY OF PRESENT ILLNESS: The patient is a 62-year-old male with a past medical history of multiple myeloma, anemia, chronic renal failure, on hemodialysis, dementia, polyneuropathy, weight loss, failure to thrive, malnutrition, and history of hepatitis C, brought to the ER for low hemoglobin. His hemoglobin was less than 7. So, he was brought to the ER for further evaluation and management. On initial evaluation, the patient's temperature was 98.2 degree Fahrenheit and WBC count was 4300, hemoglobin 7.4. One unit of PRBC was given. ID consult was called for the patient is having hepatitis C, although the patient denies the diagnosis. PAST MEDICAL HISTORY: Includes multiple myeloma, chronic renal failure, on hemodialysis, dementia, polyneuropathy, weight loss, failure to thrive, protein-calorie malnutrition, and hepatitis C. ALLERGIES: NKDA. MEDICATIONS: As per medication reconciliation sheet. Antibiotic castelan, the patient is on no antibiotic. SOCIAL HISTORY: The patient lives in a nursing facility. No history of smoking, alcohol, or drug use. FAMILY HISTORY: Not available. REVIEW OF SYSTEMS: GENERAL: The patient denies any fever, chills or generalized weakness. HEENT: The patient denies any diplopia, photophobia, or sore throat. RESPIRATORY: The patient denies any cough or shortness of breath. CARDIOVASCULAR: The patient denies any chest pain or palpitation. GASTROINTESTINAL: The patient denies any nausea or vomiting. The patient has crampy abdominal pain and diarrhea. The patient stated that he is taking laxatives. MUSCULOSKELETAL: No muscle pain, no joint pain. NEUROLOGIC: No headache, no dizziness. No focal weakness. PHYSICAL EXAMINATION: VITAL SIGNS: Current vital signs show temperature is 97.5, pulse 87, respirations 18, blood pressure 144/93. GENERAL: The patient is comfortable lying in the bed, not in acute distress, cachectic. HEENT: Head is normocephalic, atraumatic. Oral cavity is moist. Felsenthal tongue. Eyes, pallor is present, no icterus. PERRLA, EOMI. NECK: Supple. No JVD, no carotid bruit. Trachea midline. CHEST: Bilateral vesicular sounds. No crackles, no wheezing. CARDIOVASCULAR: S1, S2 within normal limits. Regular rhythm. No murmur, no gallop. ABDOMEN: Soft, nontender, nondistended. Bowel sounds are present. EXTREMITIES: No cyanosis, no clubbing, no edema. NEUROLOGIC: Alert, awake, oriented x 3. LABORATORY DATA: Current lab shows WBC count 4000, hemoglobin 8.3, hematocrit 24.8, platelets are 219,000, neutrophils 77%. Sodium is 135, potassium 3.5, chloride 97, bicarbonate is 30, BUN is 13, creatinine is 2.5, glucose is 109. Stool for occult blood is negative. Blood culture 2 sets are negative. IMPRESSION: 1. Chronic hepatitis C without evidence of any encephalopathy. 2. Anemia of chronic disease. 3. Multiple myeloma. 4. Dementia. 5. Protein-calorie malnutrition. 6. Neuropathy. 7. Chronic kidney disease stage 5, on hemodialysis. RECOMMENDATIONS AND PLAN: We will continue same treatment. Check hepatitis C serology, hepatitis B serology and go from there. Thank you Dr. Ervin for allowing me to take care of this patient. JOB# [id number]
[2017-11-21 05:50] LABS: HEMATOCRIT 25.1 % (41.0-60); HEMOGLOBIN 8.3 gm/dL (12-16); MEAN CELL VOLUME 91.7 fl (80-99); MEAN CORPUSCULAR HEMOGLOBIN 30.3 pg (26.0-30.0); MEAN PLATELET VOLUME 6.4 fl; PLATELET COUNT 215 Th/cmm (150-400); RED BLOOD COUNT 2.74 Mil/cmm (4.30-5.70); RED CELL DISTRIBUTION WIDTH 22.8 % (11.5-20.0); WHITE BLOOD COUNT 4.1 Th/cmm (4.8-10.8)
[2017-11-21 05:55] LABS: MANUAL DIFF REQUIRED? YES
[2017-11-21 06:18] LABS: BAND NEUTROPHILE 3 % (0-10); LYMPHOCYTE 32 % (20-50); MONOCYTE 2 % (2-10); NEUTROPHILS 63 % (40-80); TOTAL CELLS COUNTED 100
[2017-11-21 06:19] LABS: PLATELET ESTIMATE ADEQUATE (NORMAL); PLATELET MORPHOLOGY NORMAL (NORMAL)
[2017-11-21 06:20] LABS: ANISOCYTOSIS 1+; POIKILOCYTOSIS 1+
[2017-11-21] MEDS ORDERED: Albuterol/Ipratropium Neb 3 ML AERS HHN ONE (08:14)
[2017-11-21] MEDS: Vitamin B Complex w/Vitamin C Tab PO SCH (08:28)
[2017-11-21] MEDS ORDERED: AMINO ACIDS PO SCH (09:00)
[2017-11-21] MEDS ORDERED: [UNRECOGNIZED DRUG - OTHER] PO SCH (09:00)
[2017-11-21] MEDS ORDERED: FIBER PO SCH (09:00)
[2017-11-21] MEDS ORDERED: PROTEIN HYDR PO SCH (09:00)
[2017-11-21] MEDS: Levofloxacin 250mg/50mL 250 MG/50 ML BAG IV SCH (09:28)
[2017-11-21] MEDS: methylPREDNISolone SS 40 mg Vial IVP SCH ×2 (09:32→17:13)
--- NOTE | 2017-11-21 10:30 | General Progress Note ---
Subjective - Review of Systems Events since last encounter: patient seems comfortable on bed no signs of pain Objective - Results Result Diagrams: 11/21/17 05:05 11/20/17 09:20 Recent Labs: Laboratory Last Values WBC 4.1 Th/cmm (4.8-10.8) L 11/21/17 05:05 RBC 2.74 Mil/cmm (4.30-5.70) L 11/21/17 05:05 Hgb 8.3 gm/dL (12-16) L 11/21/17 05:05 Hct 25.1 % (41.0-60) L 11/21/17 05:05 MCV 91.7 fl (80-99) 11/21/17 05:05 MCH 30.3 pg (26.0-30.0) H 11/21/17 05:05 MCHC Differential 33.0 pg (28.0-36.0) 11/21/17 05:05 RDW 22.8 % (11.5-20.0) H 11/21/17 05:05 Plt Count 215 Th/cmm (150-400) 11/21/17 05:05 MPV 6.4 fl 11/21/17 05:05 Band Neutrophils % 3 % (0-10) 11/21/17 05:05 Neutrophils (Manual) 63 % (40-80) 11/21/17 05:05 Lymphocytes 32 % (20-50) 11/21/17 05:05 Monocytes 2 % (2-10) 11/21/17 05:05 Eosinophils 0 % (0-5) 11/20/17 00:10 Basophils 0 % (0-3) 11/20/17 00:10 Platelet Estimate ADEQUATE (NORMAL) 11/21/17 05:05 Platelet Morphology NORMAL (NORMAL) 11/21/17 05:05 Polychromasia 1+ 11/20/17 09:20 Poikilocytosis 1+ 11/21/17 05:05 Anisocytosis 1+ 11/21/17 05:05 RBC Morph Micro Appear ABNORMAL (NORMAL) 11/21/17 05:05 PT 10.3 SECONDS (9.5-11.5) 11/20/17 00:10 INR 0.99 (0.5-1.4) 11/20/17 00:10 PTT (Actin FS) 22.5 SECONDS (26.0-38.0) L 11/20/17 00:10 Sodium 135 mEq/L (136-145) L 11/20/17 09:20 Potassium 3.5 mEq/L (3.5-5.1) 11/20/17 09:20 Chloride 97 mEq/L (98-107) L 11/20/17 09:20 Carbon Dioxide 30.4 mEq/L (21.0-31.0) 11/20/17 09:20 Anion Gap 11.1 (7.0-16.0) 11/20/17 09:20 BUN 13 mg/dL (7-25) 11/20/17 09:20 Creatinine 2.5 mg/dL (0.7-1.3) H 11/20/17 09:20 Est GFR ( Amer) 34.0 ml/min (>90) 11/20/17 09:20 Est GFR (Non-Af Amer) 28.1 ml/min 11/20/17 09:20 BUN/Creatinine Ratio 5.2 11/20/17 09:20 Glucose 109 mg/dL (70-105) H 11/20/17 09:20 Calcium 9.2 mg/dL (8.6-10.3) 11/20/17 09:20 Total Bilirubin 0.5 mg/dL (0.3-1.0) 11/20/17 00:10 AST 18 U/L (13-39) 11/20/17 00:10 ALT 13 U/L (7-52) 11/20/17 00:10 Alkaline Phosphatase 143 U/L (34-104) H 11/20/17 00:10 Troponin I 0.03 ng/mL (0.01-0.05) 11/20/17 00:10 Total Protein 6.6 gm/dL (6.0-8.3) 11/20/17 00:10 Albumin 3.3 gm/dL (4.2-5.5) L 11/20/17 00:10 Globulin 3.3 gm/dL 11/20/17 00:10 Albumin/Globulin Ratio 1.0 (1.0-1.8) 11/20/17 00:10 Triglycerides 96 mg/dL (<150) 11/20/17 09:20 Cholesterol 151 mg/dL (<200) 11/20/17 09:20 LDL Cholesterol Direct 38 mg/dL (75-193) L 11/20/17 09:20 HDL Cholesterol 84 mg/dL (23-92) 11/20/17 09:20 TSH 1.39 uIU/ml (0.34-5.60) 11/20/17 09:20 Stool Occult Blood NEGATIVE (NEGATIVE) 11/21/17 06:10 Blood Type B NEGATIVE 11/20/17 00:10 Antibody Screen NEGATIVE 11/20/17 00:10 Crossmatch See Detail 11/20/17 00:10 - Physical Exam Vitals and I&O: Vital Signs Temp 97.4 F 11/21/17 04:00 Pulse 91 11/21/17 07:40 Resp 24 11/21/17 09:50 BP 147/89 11/21/17 04:00 Pulse Ox 96 11/21/17 09:41 Intake & Output 11/20/17 11/21/17 11/21/17 18:59 06:59 18:59 Intake Total 200 60 Balance 200 60 Weight (lbs) 43.681 kg 43.545 kg Intake: Oral 200 60 Other: # Voids 3 1 # Bowel Movements 2 1 Stool Characteristics Soft Formed Weight Source Bedscale Bedscale Active Medications: Current Medications Acetaminophen (Tylenol) 650 mg PO Q6H PRN PRN Reason: Pain or Fever >101 Stop: 01/19/18 05:03 Last Admin: 11/21/17 08:28 Dose: 650 mg Acetaminophen (Tylenol) 650 mg PO Q6HR PRN PRN Reason: Pain or Fever >101 Stop: 01/19/18 14:17 Albuterol/Ipratropium (Duoneb Neb) 3 ml HHN Q4H CECIL PRN Reason: Protocol Stop: 01/20/18 08:14 Atorvastatin Calcium (Lipitor) 40 mg PO HS [facility] Stop: 01/19/18 20:59 Last Admin: 11/20/17 20:49 Dose: 40 mg Diphenhydramine HCl (Benadryl) 25 mg PO Q6HR PRN PRN Reason: Itching Stop: 01/19/18 14:17 Last Admin: 11/21/17 00:26 Dose: 25 mg Docusate Sodium (Colace) 100 mg PO BID [facility] Stop: 01/19/18 16:59 Last Admin: 11/21/17 08:28 Dose: 100 mg Levofloxacin (Levaquin Pb) 250 mg in 50 mls @ 50 mls/hr IV Q24HR CECIL Stop: 01/20/18 08:59 Last Admin: 11/21/17 09:28 Dose: 50 mls/hr Methylprednisolone Sodium Succinate (Solu-Medrol) 100 mg IVP Q6HR CECIL Stop: 01/20/18 08:59 Last Admin: 11/21/17 09:32 Dose: 100 mg Miscellaneous (Epoetin Binu [Epogen]) 100 mcg SQ ARPAN CECIL Stop: 01/19/18 14:29 Vitamin B Complex/Vit C/Folic Acid (Vitamin B Complex W/Vitamin C) 1 tab PO DAILY CECIL Stop: 01/20/18 08:59 Last Admin: 11/21/17 08:28 Dose: 1 tab - Procedures Procedures: Procedures Procedure Code Date BLOOD TRANSFUSION SERVICE 34721 10/29/17 PERFORMANCE OF URINARY FILTRATION, <6 HRS/DAY [id number] 10/29/17 TRANSFUSE NONAUT RED BLOOD CELLS IN PERIPH VEIN, MERGED WITH [facility] [id number] 10/29/17
[2017-11-21] MEDS: Albuterol/Ipratropium Neb 3 ML AERS HHN SCH ×3 (11:16→19:24)
--- NOTE | 2017-11-21 16:34 | General Progress Note ---
Subjective - Review of Systems Service Date: 11/21/17 Subjective: alert, comfortable Objective - Results Result Diagrams: 11/21/17 05:05 11/20/17 09:20 Recent Labs: Laboratory Last Values WBC 4.1 Th/cmm (4.8-10.8) L 11/21/17 05:05 RBC 2.74 Mil/cmm (4.30-5.70) L 11/21/17 05:05 Hgb 8.3 gm/dL (12-16) L 11/21/17 05:05 Hct 25.1 % (41.0-60) L 11/21/17 05:05 MCV 91.7 fl (80-99) 11/21/17 05:05 MCH 30.3 pg (26.0-30.0) H 11/21/17 05:05 MCHC Differential 33.0 pg (28.0-36.0) 11/21/17 05:05 RDW 22.8 % (11.5-20.0) H 11/21/17 05:05 Plt Count 215 Th/cmm (150-400) 11/21/17 05:05 MPV 6.4 fl 11/21/17 05:05 Band Neutrophils % 3 % (0-10) 11/21/17 05:05 Neutrophils (Manual) 63 % (40-80) 11/21/17 05:05 Lymphocytes 32 % (20-50) 11/21/17 05:05 Monocytes 2 % (2-10) 11/21/17 05:05 Eosinophils 0 % (0-5) 11/20/17 00:10 Basophils 0 % (0-3) 11/20/17 00:10 Platelet Estimate ADEQUATE (NORMAL) 11/21/17 05:05 Platelet Morphology NORMAL (NORMAL) 11/21/17 05:05 Polychromasia 1+ 11/20/17 09:20 Poikilocytosis 1+ 11/21/17 05:05 Anisocytosis 1+ 11/21/17 05:05 RBC Morph Micro Appear ABNORMAL (NORMAL) 11/21/17 05:05 PT 10.3 SECONDS (9.5-11.5) 11/20/17 00:10 INR 0.99 (0.5-1.4) 11/20/17 00:10 PTT (Actin FS) 22.5 SECONDS (26.0-38.0) L 11/20/17 00:10 Sodium 135 mEq/L (136-145) L 11/20/17 09:20 Potassium 3.5 mEq/L (3.5-5.1) 11/20/17 09:20 Chloride 97 mEq/L (98-107) L 11/20/17 09:20 Carbon Dioxide 30.4 mEq/L (21.0-31.0) 11/20/17 09:20 Anion Gap 11.1 (7.0-16.0) 11/20/17 09:20 BUN 13 mg/dL (7-25) 11/20/17 09:20 Creatinine 2.5 mg/dL (0.7-1.3) H 11/20/17 09:20 Est GFR ( Amer) 34.0 ml/min (>90) 11/20/17 09:20 Est GFR (Non-Af Amer) 28.1 ml/min 11/20/17 09:20 BUN/Creatinine Ratio 5.2 11/20/17 09:20 Glucose 109 mg/dL (70-105) H 11/20/17 09:20 Calcium 9.2 mg/dL (8.6-10.3) 11/20/17 09:20 Total Bilirubin 0.5 mg/dL (0.3-1.0) 11/20/17 00:10 AST 18 U/L (13-39) 11/20/17 00:10 ALT 13 U/L (7-52) 11/20/17 00:10 Alkaline Phosphatase 143 U/L (34-104) H 11/20/17 00:10 Troponin I 0.03 ng/mL (0.01-0.05) 11/20/17 00:10 Total Protein 6.6 gm/dL (6.0-8.3) 11/20/17 00:10 Albumin 3.3 gm/dL (4.2-5.5) L 11/20/17 00:10 Globulin 3.3 gm/dL 11/20/17 00:10 Albumin/Globulin Ratio 1.0 (1.0-1.8) 11/20/17 00:10 Triglycerides 96 mg/dL (<150) 11/20/17 09:20 Cholesterol 151 mg/dL (<200) 11/20/17 09:20 LDL Cholesterol Direct 38 mg/dL (75-193) L 11/20/17 09:20 HDL Cholesterol 84 mg/dL (23-92) 11/20/17 09:20 TSH 1.39 uIU/ml (0.34-5.60) 11/20/17 09:20 Stool Occult Blood NEGATIVE (NEGATIVE) 11/21/17 06:10 Blood Type B NEGATIVE 11/20/17 00:10 Antibody Screen NEGATIVE 11/20/17 00:10 Crossmatch See Detail 11/20/17 00:10 - Physical Exam Vitals and I&O: Vital Signs Temp 97.1 F 11/21/17 12:00 Pulse 106 11/21/17 15:17 Resp 16 11/21/17 15:17 BP 148/90 11/21/17 12:00 Pulse Ox 98 11/21/17 15:17 Intake & Output 11/20/17 11/21/17 11/21/17 18:59 06:59 18:59 Intake Total 200 60 Balance 200 60 Weight (lbs) 43.681 kg 43.545 kg Intake: Oral 200 60 Other: # Voids 3 1 # Bowel Movements 2 1 Stool Characteristics Soft Soft Formed Formed Brown Weight Source Bedscale Bedscale Active Medications: Current Medications Acetaminophen (Tylenol) 650 mg PO Q6H PRN PRN Reason: Pain or Fever >101 Stop: 01/19/18 05:03 Last Admin: 11/21/17 16:05 Dose: 650 mg Acetaminophen (Tylenol) 650 mg PO Q6HR PRN PRN Reason: Pain or Fever >101 Stop: 01/19/18 14:17 Albuterol/Ipratropium (Duoneb Neb) 3 ml HHN Q4H CECIL PRN Reason: Protocol Stop: 01/20/18 08:14 Last Admin: 11/21/17 15:16 Dose: 3 ml Atorvastatin Calcium (Lipitor) 40 mg PO HS [facility] Stop: 01/19/18 20:59 Last Admin: 11/20/17 20:49 Dose: 40 mg Diphenhydramine HCl (Benadryl) 25 mg PO Q6HR PRN PRN Reason: Itching Stop: 01/19/18 14:17 Last Admin: 11/21/17 00:26 Dose: 25 mg Docusate Sodium (Colace) 100 mg PO BID [facility] Stop: 01/19/18 16:59 Last Admin: 11/21/17 16:05 Dose: 100 mg Levofloxacin (Levaquin Pb) 250 mg in 50 mls @ 50 mls/hr IV Q24HR CEC[facility] Stop: 01/20/18 08:59 Last Admin: 11/21/17 09:28 Dose: 50 mls/hr Methylprednisolone Sodium Succinate (Solu-Medrol) 100 mg IVP Q6HR CEC[facility] Stop: 01/20/18 08:59 Last Admin: 11/21/17 09:32 Dose: 100 mg Miscellaneous (Epoetin Binu [Epogen]) 100 mcg SQ ARPAN [facility] Stop: 01/19/18 14:29 Vitamin B Complex/Vit C/Folic Acid (Vitamin B Complex W/Vitamin C) 1 tab PO DAILY [facility] Stop: 01/20/18 08:59 Last Admin: 11/21/17 08:28 Dose: 1 tab General: Alert, No acute distress HEENT: PERRLA, Mucous membr. moist/pink Neck: Supple, +2 carotid pulse wo bruit Cardiovascular: Regular rate, Normal S1, Normal S2 Lungs: Clear to auscultation Abdomen: Bowel sounds, Soft Extremities: no Edema Neurological: Sensation intact Skin: no Rash Psych/Mental Status: Mood NL - Procedures Procedures: Procedures Procedure Code Date BLOOD TRANSFUSION SERVICE 84320 10/29/17 PERFORMANCE OF URINARY FILTRATION, <6 HRS/DAY [id number] 10/29/17 TRANSFUSE NONAUT RED BLOOD CELLS IN PERIPH VEIN, PERC 14210U3 10/29/17 Assessment/Plan - Assessment Assessment: ESRD on HD Acute on Chronic Anemia Multiple Myeloma Ess Htn Hx CHF Severe Malnutrition Type 2 DM - Plan Plan: Lab - Result Diagrams 11/21/17 05:05 11/20/17 09:20 Current Medications Acetaminophen (Tylenol) 650 mg PO Q6H PRN PRN Reason: Pain or Fever >101 Stop: 01/19/18 05:03 Last Admin: 11/21/17 16:05 Dose: 650 mg Acetaminophen (Tylenol) 650 mg PO Q6HR PRN PRN Reason: Pain or Fever >101 Stop: 01/19/18 14:17 Albuterol/Ipratropium (Duoneb Neb) 3 ml HHN Q4H CECIL PRN Reason: Protocol Stop: 01/20/18 08:14 Last Admin: 11/21/17 15:16 Dose: 3 ml Atorvastatin Calcium (Lipitor) 40 mg PO HS [facility] Stop: 01/19/18 20:59 Last Admin: 11/20/17 20:49 Dose: 40 mg Diphenhydramine HCl (Benadryl) 25 mg PO Q6HR PRN PRN Reason: Itching Stop: 01/19/18 14:17 Last Admin: 11/21/17 00:26 Dose: 25 mg Docusate Sodium (Colace) 100 mg PO BID [facility] Stop: 01/19/18 16:59 Last Admin: 11/21/17 16:05 Dose: 100 mg Levofloxacin (Levaquin Pb) 250 mg in 50 mls @ 50 mls/hr IV Q24HR [facility] Stop: 01/20/18 08:59 Last Admin: 11/21/17 09:28 Dose: 50 mls/hr Methylprednisolone Sodium Succinate (Solu-Medrol) 100 mg IVP Q6HR [facility] Stop: 01/20/18 08:59 Last Admin: 11/21/17 09:32 Dose: 100 mg Miscellaneous (Epoetin Binu [Epogen]) 100 mcg SQ ARPAN CECIL Stop: 01/19/18 14:29 Vitamin B Complex/Vit C/Folic Acid (Vitamin B Complex W/Vitamin C) 1 tab PO DAILY [facility] Stop: 01/20/18 08:59 Last Admin: 11/21/17 08:28 Dose: 1 tab Lab - Result Diagrams 11/21/17 05:05 11/20/17 09:20 schedule for HD in am stool OB x 2 neg Hgb/Hct stable
--- NOTE | 2017-11-21 23:49 | Infectious Disease Prog Note ---
Infectious Disease Subjective - Review of Systems Service Date: 11/21/17 Subjective: no new change. no fever. Infectious Disease Objective - Results Result Diagrams: 11/21/17 05:05 11/20/17 09:20 Recent Labs: Laboratory Last Values WBC 4.1 Th/cmm (4.8-10.8) L 11/21/17 05:05 RBC 2.74 Mil/cmm (4.30-5.70) L 11/21/17 05:05 Hgb 8.3 gm/dL (12-16) L 11/21/17 05:05 Hct 25.1 % (41.0-60) L 11/21/17 05:05 MCV 91.7 fl (80-99) 11/21/17 05:05 MCH 30.3 pg (26.0-30.0) H 11/21/17 05:05 MCHC Differential 33.0 pg (28.0-36.0) 11/21/17 05:05 RDW 22.8 % (11.5-20.0) H 11/21/17 05:05 Plt Count 215 Th/cmm (150-400) 11/21/17 05:05 MPV 6.4 fl 11/21/17 05:05 Band Neutrophils % 3 % (0-10) 11/21/17 05:05 Neutrophils (Manual) 63 % (40-80) 11/21/17 05:05 Lymphocytes 32 % (20-50) 11/21/17 05:05 Monocytes 2 % (2-10) 11/21/17 05:05 Eosinophils 0 % (0-5) 11/20/17 00:10 Basophils 0 % (0-3) 11/20/17 00:10 Platelet Estimate ADEQUATE (NORMAL) 11/21/17 05:05 Platelet Morphology NORMAL (NORMAL) 11/21/17 05:05 Polychromasia 1+ 11/20/17 09:20 Poikilocytosis 1+ 11/21/17 05:05 Anisocytosis 1+ 11/21/17 05:05 RBC Morph Micro Appear ABNORMAL (NORMAL) 11/21/17 05:05 PT 10.3 SECONDS (9.5-11.5) 11/20/17 00:10 INR 0.99 (0.5-1.4) 11/20/17 00:10 PTT (Actin FS) 22.5 SECONDS (26.0-38.0) L 11/20/17 00:10 Sodium 135 mEq/L (136-145) L 11/20/17 09:20 Potassium 3.5 mEq/L (3.5-5.1) 11/20/17 09:20 Chloride 97 mEq/L (98-107) L 11/20/17 09:20 Carbon Dioxide 30.4 mEq/L (21.0-31.0) 11/20/17 09:20 Anion Gap 11.1 (7.0-16.0) 11/20/17 09:20 BUN 13 mg/dL (7-25) 11/20/17 09:20 Creatinine 2.5 mg/dL (0.7-1.3) H 11/20/17 09:20 Est GFR ( Amer) 34.0 ml/min (>90) 11/20/17 09:20 Est GFR (Non-Af Amer) 28.1 ml/min 11/20/17 09:20 BUN/Creatinine Ratio 5.2 11/20/17 09:20 Glucose 109 mg/dL (70-105) H 11/20/17 09:20 Calcium 9.2 mg/dL (8.6-10.3) 11/20/17 09:20 Total Bilirubin 0.5 mg/dL (0.3-1.0) 11/20/17 00:10 AST 18 U/L (13-39) 11/20/17 00:10 ALT 13 U/L (7-52) 11/20/17 00:10 Alkaline Phosphatase 143 U/L (34-104) H 11/20/17 00:10 Troponin I 0.03 ng/mL (0.01-0.05) 11/20/17 00:10 Total Protein 6.6 gm/dL (6.0-8.3) 11/20/17 00:10 Albumin 3.3 gm/dL (4.2-5.5) L 11/20/17 00:10 Globulin 3.3 gm/dL 11/20/17 00:10 Albumin/Globulin Ratio 1.0 (1.0-1.8) 11/20/17 00:10 Triglycerides 96 mg/dL (<150) 11/20/17 09:20 Cholesterol 151 mg/dL (<200) 11/20/17 09:20 LDL Cholesterol Direct 38 mg/dL (75-193) L 11/20/17 09:20 HDL Cholesterol 84 mg/dL (23-92) 11/20/17 09:20 TSH 1.39 uIU/ml (0.34-5.60) 11/20/17 09:20 Stool Occult Blood NEGATIVE (NEGATIVE) 11/21/17 06:10 Blood Type B NEGATIVE 11/20/17 00:10 Antibody Screen NEGATIVE 11/20/17 00:10 Crossmatch See Detail 11/20/17 00:10 - Physical Exam Vitals and I&O: Vital Signs Temp 98 F 11/21/17 20:00 Pulse 106 11/21/17 20:00 Resp 19 11/21/17 20:00 BP 145/94 11/21/17 20:00 Pulse Ox 95 11/21/17 20:00 Intake & Output 11/21/17 11/21/17 11/22/17 06:59 18:59 06:59 Intake Total 60 250 Balance 60 250 Weight (lbs) 43.545 kg 43.545 kg Intake: Intake, IV Amount 50 Levofloxacin 250mg/50mL 50 250 mg In 50 ml @ 50 mls/ hr IV Q24HR [facility] Rx#: [id number] Oral 60 200 Other: # Voids 1 3 # Bowel Movements 1 1 Stool Characteristics Soft Soft Formed Formed Brown Brown Weight Source Bedscale Bedscale Active Medications: Current Medications Acetaminophen (Tylenol) 650 mg PO Q6H PRN PRN Reason: Pain or Fever >101 Stop: 01/19/18 05:03 Last Admin: 11/21/17 16:05 Dose: 650 mg Acetaminophen (Tylenol) 650 mg PO Q6HR PRN PRN Reason: Pain or Fever >101 Stop: 01/19/18 14:17 Albuterol/Ipratropium (Duoneb Neb) 3 ml HHN Q4H [facility] PRN Reason: Protocol Stop: 01/20/18 08:14 Last Admin: 11/21/17 19:24 Dose: 3 ml Atorvastatin Calcium (Lipitor) 40 mg PO [facility] Stop: 01/19/18 20:59 Last Admin: 11/21/17 21:02 Dose: 40 mg Diphenhydramine HCl (Benadryl) 25 mg PO Q6HR PRN PRN Reason: Itching Stop: 01/19/18 14:17 Last Admin: 11/21/17 00:26 Dose: 25 mg Docusate Sodium (Colace) 100 mg PO BID [facility] Stop: 01/19/18 16:59 Last Admin: 11/21/17 16:05 Dose: 100 mg Levofloxacin (Levaquin Pb) 250 mg in 50 mls @ 50 mls/hr IV Q24HR [facility] Stop: 01/20/18 08:59 Last Infusion: 11/21/17 18:22 Dose: Infused Methylprednisolone Sodium Succinate (Solu-Medrol) 100 mg IVP Q6HR [facility] Stop: 01/20/18 08:59 Last Admin: 11/21/17 17:13 Dose: 100 mg Miscellaneous (Epoetin Binu [Epogen]) 100 mcg SQ ARPAN [facility] Stop: 01/19/18 14:29 Vitamin B Complex/Vit C/Folic Acid (Vitamin B Complex W/Vitamin C) 1 tab PO DAILY [facility] Stop: 01/20/18 08:59 Last Admin: 11/21/17 08:28 Dose: 1 tab General: no acute distress, cachectic HEENT: atraumatic, normocephalic, PERRLA, EOMI, moist mucous membrane Neck: supple, rigid, no thyromegaly, no lymphadenopathy Cardiovascular: S1S2, no regular Lungs: clear to auscultation bilaterally, clear to percussion Abdomen: soft, no tender, no distended, no mass Extremities: no cyanosis, no clubbing, no edema, no lines Neurological: awake, alert Skin: intact, rash - Procedures Procedures: Procedures Procedure Code Date BLOOD TRANSFUSION SERVICE 64841 10/29/17 PERFORMANCE OF URINARY FILTRATION, <6 HRS/DAY [id number] 10/29/17 TRANSFUSE NONAUT RED BLOOD CELLS IN PERIPH VEIN, PERC 11135J3 10/29/17 Infectious Disease Assmt/Plan - Assessment Assessment: 1. Chronic hepatitis C without evidence of any encephalopathy. 2. Anemia of chronic disease. 3. Multiple myeloma. 4. Dementia. 5. Protein-calorie malnutrition. 6. Neuropathy. 7. Chronic kidney disease stage 5, on hemodialysis. - Plan Plan: continue same treatment. Check hepatitis C serology, hepatitis B serology and go from there.
[2017-11-22] MEDS: Albuterol/Ipratropium Neb 3 ML AERS HHN SCH ×7 (00:14→23:15)
[2017-11-22] MEDS: methylPREDNISolone SS 40 mg Vial IVP SCH ×3 (00:40→13:51)
[2017-11-22 05:42] LABS: HEMATOCRIT 24.5 % (41.0-60); MEAN CELL VOLUME 91.7 fl (80-99); MEAN CORPUSCULAR HEMOGLOBIN 29.6 pg (26.0-30.0); MEAN CORPUSCULAR HGB CONC 32.3 pg (28.0-36.0); MEAN PLATELET VOLUME 6.8 fl; PLATELET COUNT 235 Th/cmm (150-400); RED BLOOD COUNT 2.67 Mil/cmm (4.30-5.70); RED CELL DISTRIBUTION WIDTH 24.1 % (11.5-20.0); WHITE BLOOD COUNT 4.2 Th/cmm (4.8-10.8)
[2017-11-22 05:43] LABS: ANION GAP 16.2 (7.0-16.0); CALCIUM SERUM 9.3 mg/dL (8.6-10.3); CARBON DIOXIDE 24.6 mEq/L (21.0-31.0); GFR NON AFRICAN-AMERICAN 13.3 ml/min; POTASSIUM SERUM 3.8 mEq/L (3.5-5.1)
[2017-11-22 05:55] LABS: HEMOGLOBIN 7.9 gm/dL (12-16); MANUAL DIFF REQUIRED? YES
[2017-11-22 05:59] LABS: CREATININE - SERUM 4.8 mg/dL (0.7-1.3)
[2017-11-22 07:04] LABS: BAND NEUTROPHILE 2 % (0-10); LYMPHOCYTE 16 % (20-50); NEUTROPHILS 79 % (40-80); TOTAL CELLS COUNTED 100
[2017-11-22 07:05] LABS: ANISOCYTOSIS 1+; MONOCYTE 3 % (2-10)
[2017-11-22] MEDS: Vitamin B Complex w/Vitamin C Tab PO SCH (08:25)
[2017-11-22] MEDS: Levofloxacin 250mg/50mL 250 MG/50 ML BAG IV SCH (09:00)
--- NOTE | 2017-11-22 10:01 | Diagnostic Imaging Report ---
CHEST X-RAY: AP view INDICATION: Shortness of breath COMPARISON: CT chest on 11/01/2017 and chest x-ray on 10/31/2017 FINDINGS: Extensive chronic interstitial lung changes are seen with right perihilar and left basal infiltrates and small left effusion. There is elevation of the left hemidiaphragm. Numerous bilateral chronic appearing rib fractures are noted. Cardiomegaly is noted. IMPRESSION: Extensive chronic and basal lung changes with superimposed right perihilar left basal infiltrates. Small left effusion is also noted. Cardiomegaly Numerous bilateral rib fractures. Please correlate with clinical history as findings may be due to underlying metabolic etiology or osseous metastatic disease.
--- NOTE | 2017-11-22 10:53 | Diagnostic Imaging Report ---
Ultrasound abdomen HISTORY: Abdominal pain COMPARISON: CT chest performed on 11/01/2017 Technique: Sonography of the abdomen was performed in multiple planes. FINDINGS: Exam is limited due to bowel gas. The liver demonstrates normal echogenicity and measures 17.4 cm. There is a cyst within the right lobe of the liver measuring 3.6 x 3.2 cm. No evidence of gallstones or gallbladder wall thickening. The CBD measures 2 mm. Evaluation of the pancreas is limited due to bowel gas. The right kidney measures 10.8 x 3.9 4 cm. No evidence of focal lesions or hydronephrosis. The left kidney measures 9.6 x 4.9 cm demonstrating a 2.1 cm cyst. There appears to be a mid pole left renal cyst measuring 2.1 x 1.7 cm. No hydronephrosis. There is increased echogenicity of both kidneys. The spleen measures 9.7 cm. Assessment of the spleen was also limited on this examination. The visualized portions of the abdominal aorta within normal limits in size. IMPRESSION: Limited exam due to bowel gas. No evidence of gallstones. Mild hepatomegaly with 3.6 x 3.2 cm Hepatic cyst noted. Increased echogenicity of the kidneys likely due to underlying medical renal disease. 2.1 cm left renal cyst.
--- NOTE | 2017-11-22 15:28 | General Progress Note ---
Subjective - Review of Systems Events since last encounter: no fever no distress Objective - Results Result Diagrams: 11/22/17 04:35 11/22/17 04:35 Recent Labs: Laboratory Last Values WBC 4.2 Th/cmm (4.8-10.8) L 11/22/17 04:35 RBC 2.67 Mil/cmm (4.30-5.70) L 11/22/17 04:35 Hgb 7.9 gm/dL (12-16) L* 11/22/17 04:35 Hct 24.5 % (41.0-60) L 11/22/17 04:35 MCV 91.7 fl (80-99) 11/22/17 04:35 MCH 29.6 pg (26.0-30.0) 11/22/17 04:35 MCHC Differential 32.3 pg (28.0-36.0) 11/22/17 04:35 RDW 24.1 % (11.5-20.0) H 11/22/17 04:35 Plt Count 235 Th/cmm (150-400) 11/22/17 04:35 MPV 6.8 fl 11/22/17 04:35 Band Neutrophils % 2 % (0-10) 11/22/17 04:35 Neutrophils (Manual) 79 % (40-80) 11/22/17 04:35 Lymphocytes 16 % (20-50) L 11/22/17 04:35 Monocytes 3 % (2-10) 11/22/17 04:35 Eosinophils 0 % (0-5) 11/20/17 00:10 Basophils 0 % (0-3) 11/20/17 00:10 Platelet Estimate ADEQUATE (NORMAL) 11/21/17 05:05 Platelet Morphology NORMAL (NORMAL) 11/21/17 05:05 Polychromasia 1+ 11/20/17 09:20 Poikilocytosis 1+ 11/21/17 05:05 Anisocytosis 1+ 11/22/17 04:35 RBC Morph Micro Appear ABNORMAL (NORMAL) 11/21/17 05:05 PT 10.3 SECONDS (9.5-11.5) 11/20/17 00:10 INR 0.99 (0.5-1.4) 11/20/17 00:10 PTT (Actin FS) 22.5 SECONDS (26.0-38.0) L 11/20/17 00:10 Sodium 135 mEq/L (136-145) L 11/22/17 04:35 Potassium 3.8 mEq/L (3.5-5.1) 11/22/17 04:35 Chloride 98 mEq/L (98-107) 11/22/17 04:35 Carbon Dioxide 24.6 mEq/L (21.0-31.0) 11/22/17 04:35 Anion Gap 16.2 (7.0-16.0) H 11/22/17 04:35 BUN 41 mg/dL (7-25) H 11/22/17 04:35 Creatinine 4.8 mg/dL (0.7-1.3) H* 11/22/17 04:35 Est GFR ( Amer) 16.0 ml/min (>90) 11/22/17 04:35 Est GFR (Non-Af Amer) 13.3 ml/min 11/22/17 04:35 BUN/Creatinine Ratio 8.5 11/22/17 04:35 Glucose 139 mg/dL (70-105) H 11/22/17 04:35 Calcium 9.3 mg/dL (8.6-10.3) 11/22/17 04:35 Total Bilirubin 0.5 mg/dL (0.3-1.0) 11/20/17 00:10 AST 18 U/L (13-39) 11/20/17 00:10 ALT 13 U/L (7-52) 11/20/17 00:10 Alkaline Phosphatase 143 U/L (34-104) H 11/20/17 00:10 Troponin I 0.03 ng/mL (0.01-0.05) 11/20/17 00:10 Total Protein 6.6 gm/dL (6.0-8.3) 11/20/17 00:10 Albumin 3.3 gm/dL (4.2-5.5) L 11/20/17 00:10 Globulin 3.3 gm/dL 11/20/17 00:10 Albumin/Globulin Ratio 1.0 (1.0-1.8) 11/20/17 00:10 Triglycerides 96 mg/dL (<150) 11/20/17 09:20 Cholesterol 151 mg/dL (<200) 11/20/17 09:20 LDL Cholesterol Direct 38 mg/dL (75-193) L 11/20/17 09:20 HDL Cholesterol 84 mg/dL (23-92) 11/20/17 09:20 TSH 1.39 uIU/ml (0.34-5.60) 11/20/17 09:20 Stool Occult Blood NEGATIVE (NEGATIVE) 11/21/17 06:10 Blood Type B NEGATIVE 11/20/17 00:10 Antibody Screen NEGATIVE 11/20/17 00:10 Crossmatch See Detail 11/20/17 00:10 - Physical Exam Vitals and I&O: Vital Signs Temp 97.0 F 11/22/17 11:46 Pulse 103 11/22/17 11:52 Resp 18 11/22/17 11:52 BP 127/76 11/22/17 11:46 Pulse Ox 96 11/22/17 11:52 Intake & Output 11/21/17 11/22/17 11/22/17 18:59 06:59 18:59 Intake Total 250 Balance 250 Weight (lbs) 43.545 kg 42.003 kg Intake: Intake, IV Amount 50 Levofloxacin 250mg/50mL 50 250 mg In 50 ml @ 50 mls/ hr IV Q24HR [facility] Rx#: [id number] Oral 200 Other: # Voids 3 0 # Bowel Movements 1 1 Stool Characteristics Soft Soft Formed Formed Brown Brown Weight Source Bedscale Bedscale Active Medications: Current Medications Acetaminophen (Tylenol) 650 mg PO Q6H PRN PRN Reason: Pain or Fever >101 Stop: 01/19/18 05:03 Last Admin: 11/21/17 16:05 Dose: 650 mg Acetaminophen (Tylenol) 650 mg PO Q6HR PRN PRN Reason: Pain or Fever >101 Stop: 01/19/18 14:17 Albuterol/Ipratropium (Duoneb Neb) 3 ml HHN Q4H [facility] PRN Reason: Protocol Stop: 01/20/18 08:14 Last Admin: 11/22/17 11:54 Dose: 3 ml Atorvastatin Calcium (Lipitor) 40 mg PO [facility] Stop: 01/19/18 20:59 Last Admin: 11/21/17 21:02 Dose: 40 mg Diphenhydramine HCl (Benadryl) 25 mg PO Q6HR PRN PRN Reason: Itching Stop: 01/19/18 14:17 Last Admin: 11/21/17 00:26 Dose: 25 mg Docusate Sodium (Colace) 100 mg PO BID [facility] Stop: 01/19/18 16:59 Last Admin: 11/22/17 09:00 Dose: Not Given Levofloxacin (Levaquin Pb) 250 mg in 50 mls @ 50 mls/hr IV Q24HR [facility] Stop: 01/20/18 08:59 Last Admin: 11/22/17 09:00 Dose: 50 mls/hr Methylprednisolone Sodium Succinate (Solu-Medrol) 100 mg IVP Q6HR [facility] Stop: 01/20/18 08:59 Last Admin: 11/22/17 13:51 Dose: 100 mg Vitamin B Complex/Vit C/Folic Acid (Vitamin B Complex W/Vitamin C) 1 tab PO DAILY [facility] Stop: 01/20/18 08:59 Last Admin: 11/22/17 08:25 Dose: Not Given General: Alert, No acute distress HEENT: PERRLA, Mucous membr. moist/pink Neck: Supple, +2 carotid pulse wo bruit Cardiovascular: Regular rate, Normal S1, Normal S2 Lungs: Clear to auscultation Abdomen: Bowel sounds, Soft Extremities: no Edema Neurological: Sensation intact Skin: no Rash Psych/Mental Status: Mood NL - Procedures Procedures: Procedures Procedure Code Date BLOOD TRANSFUSION SERVICE 65857 11/20/17 PERFORMANCE OF URINARY FILTRATION, <6 HRS/DAY [id number] 10/29/17 TRANSFUSE NONAUT RED BLOOD CELLS IN PERIPH VEIN, PERC 32817S3 11/20/17
--- NOTE | 2017-11-22 15:44 | Consultation ---
DATE OF CONSULTATION: 11/21/2017 REFERRING PHYSICIAN: Dr. Ervin. Thank you very much, Dr. Ervin for this consultation. HISTORY OF PRESENT ILLNESS: This is a 62-year-old male with history of COPD, present shortness of breath, cough, congestion and admitted for treatment and management. The patient does have some minimal exertion. PAST MEDICAL HISTORY: As above. SOCIAL HISTORY: Smoking about a pack a day for 40 years, quit 7 months ago. REVIEW OF SYSTEMS: GENERAL: Weakness, fatigue. CARDIOVASCULAR: No chest pain. RESPIRATORY: Shortness of breath, cough, congestion. GASTROINTESTINAL: No nausea or vomiting. PHYSICAL EXAMINATION: GENERAL: Awake, alert, not in acute distress. VITAL SIGNS: Temperature 97.1, pulse 106, respiration is 21, blood pressure is 148/90, saturation 94%. HEENT: Atraumatic, normocephalic. Pupils are equal and reactive to light and accommodation. Ears, nose and throat are normal. NECK: Supple. No JVD. CHEST: There is wheezing, rhonchi and decreased breath sounds at bases. HEART: Regular rate. ABDOMEN: Soft. EXTREMITIES: No edema. LABORATORY DATA: WBC is 4.1, hemoglobin 8.3 and 25.1, platelets is 215. Sodium 135, potassium 3.5, BUN is 13, creatinine 2.5. IMPRESSION: This is a 62-year-old male with: 1. Chronic obstructive pulmonary disease exacerbation. 2. Respiratory failure. 3. Acute bronchitis. PLAN: 1. IV Solu-Medrol. 2. Nebulized treatment. 3. Supportive care. 4. 5. Place on telemetry. Thank you very much for this consultation. We will follow the patient with you. Use BiPAP as needed. JOB# [id number]
--- NOTE | 2017-11-22 23:44 | Infectious Disease Prog Note ---
Infectious Disease Subjective - Review of Systems Service Date: 11/22/17 Subjective: no new change. no fever. Infectious Disease Objective - Results Result Diagrams: 11/22/17 04:35 11/22/17 04:35 Recent Labs: Laboratory Last Values WBC 4.2 Th/cmm (4.8-10.8) L 11/22/17 04:35 RBC 2.67 Mil/cmm (4.30-5.70) L 11/22/17 04:35 Hgb 7.9 gm/dL (12-16) L* 11/22/17 04:35 Hct 24.5 % (41.0-60) L 11/22/17 04:35 MCV 91.7 fl (80-99) 11/22/17 04:35 MCH 29.6 pg (26.0-30.0) 11/22/17 04:35 MCHC Differential 32.3 pg (28.0-36.0) 11/22/17 04:35 RDW 24.1 % (11.5-20.0) H 11/22/17 04:35 Plt Count 235 Th/cmm (150-400) 11/22/17 04:35 MPV 6.8 fl 11/22/17 04:35 Band Neutrophils % 2 % (0-10) 11/22/17 04:35 Neutrophils (Manual) 79 % (40-80) 11/22/17 04:35 Lymphocytes 16 % (20-50) L 11/22/17 04:35 Monocytes 3 % (2-10) 11/22/17 04:35 Eosinophils 0 % (0-5) 11/20/17 00:10 Basophils 0 % (0-3) 11/20/17 00:10 Platelet Estimate ADEQUATE (NORMAL) 11/21/17 05:05 Platelet Morphology NORMAL (NORMAL) 11/21/17 05:05 Polychromasia 1+ 11/20/17 09:20 Poikilocytosis 1+ 11/21/17 05:05 Anisocytosis 1+ 11/22/17 04:35 RBC Morph Micro Appear ABNORMAL (NORMAL) 11/21/17 05:05 PT 10.3 SECONDS (9.5-11.5) 11/20/17 00:10 INR 0.99 (0.5-1.4) 11/20/17 00:10 PTT (Actin FS) 22.5 SECONDS (26.0-38.0) L 11/20/17 00:10 Sodium 135 mEq/L (136-145) L 11/22/17 04:35 Potassium 3.8 mEq/L (3.5-5.1) 11/22/17 04:35 Chloride 98 mEq/L (98-107) 11/22/17 04:35 Carbon Dioxide 24.6 mEq/L (21.0-31.0) 11/22/17 04:35 Anion Gap 16.2 (7.0-16.0) H 11/22/17 04:35 BUN 41 mg/dL (7-25) H 11/22/17 04:35 Creatinine 4.8 mg/dL (0.7-1.3) H* 11/22/17 04:35 Est GFR ( Amer) 16.0 ml/min (>90) 11/22/17 04:35 Est GFR (Non-Af Amer) 13.3 ml/min 11/22/17 04:35 BUN/Creatinine Ratio 8.5 11/22/17 04:35 Glucose 139 mg/dL (70-105) H 11/22/17 04:35 Calcium 9.3 mg/dL (8.6-10.3) 11/22/17 04:35 Total Bilirubin 0.5 mg/dL (0.3-1.0) 11/20/17 00:10 AST 18 U/L (13-39) 11/20/17 00:10 ALT 13 U/L (7-52) 11/20/17 00:10 Alkaline Phosphatase 143 U/L (34-104) H 11/20/17 00:10 Troponin I 0.03 ng/mL (0.01-0.05) 11/20/17 00:10 Total Protein 6.6 gm/dL (6.0-8.3) 11/20/17 00:10 Albumin 3.3 gm/dL (4.2-5.5) L 11/20/17 00:10 Globulin 3.3 gm/dL 11/20/17 00:10 Albumin/Globulin Ratio 1.0 (1.0-1.8) 11/20/17 00:10 Triglycerides 96 mg/dL (<150) 11/20/17 09:20 Cholesterol 151 mg/dL (<200) 11/20/17 09:20 LDL Cholesterol Direct 38 mg/dL (75-193) L 11/20/17 09:20 HDL Cholesterol 84 mg/dL (23-92) 11/20/17 09:20 TSH 1.39 uIU/ml (0.34-5.60) 11/20/17 09:20 Stool Occult Blood NEGATIVE (NEGATIVE) 11/21/17 06:10 Blood Type B NEGATIVE 11/20/17 00:10 Antibody Screen NEGATIVE 11/20/17 00:10 Crossmatch See Detail 11/20/17 00:10 - Physical Exam Vitals and I&O: Vital Signs Temp 98.5 F 11/22/17 20:00 Pulse 107 11/22/17 20:00 Resp 21 11/22/17 23:15 BP 124/80 11/22/17 20:00 Pulse Ox 98 11/22/17 23:15 Intake & Output 11/22/17 11/22/17 11/23/17 06:59 18:59 06:59 Intake Total 650 Output Total 1500 Balance -850 Weight (lbs) 42.003 kg 42.003 kg Intake: Intake, IV Amount 50 Levofloxacin 250mg/50mL 50 250 mg In 50 ml @ 50 mls/ hr IV Q24HR [facility] Rx#: [id number] Oral 600 Output: Hemodialysis 1500 Other: # Voids 0 # Bowel Movements 1 2 Stool Characteristics Soft Soft Soft Formed Formed Formed Brown Brown Brown Weight Source Bedscale Bedscale Active Medications: Current Medications Acetaminophen (Tylenol) 650 mg PO Q6H PRN PRN Reason: Pain or Fever >101 Stop: 01/19/18 05:03 Last Admin: 11/21/17 16:05 Dose: 650 mg Acetaminophen (Tylenol) 650 mg PO Q6HR PRN PRN Reason: Pain or Fever >101 Stop: 01/19/18 14:17 Albuterol/Ipratropium (Duoneb Neb) 3 ml HHN Q4H [facility] PRN Reason: Protocol Stop: 01/20/18 08:14 Last Admin: 11/22/17 23:15 Dose: 3 ml Atorvastatin Calcium (Lipitor) 40 mg PO [facility] Stop: 01/19/18 20:59 Last Admin: 11/22/17 20:43 Dose: 40 mg Diphenhydramine HCl (Benadryl) 25 mg PO Q6HR PRN PRN Reason: Itching Stop: 01/19/18 14:17 Last Admin: 11/21/17 00:26 Dose: 25 mg Docusate Sodium (Colace) 100 mg PO BID [facility] Stop: 01/19/18 16:59 Last Admin: 11/22/17 17:15 Dose: Not Given Levofloxacin (Levaquin Pb) 250 mg in 50 mls @ 50 mls/hr IV Q24HR [facility] Stop: 01/20/18 08:59 Last Infusion: 11/22/17 10:00 Dose: Infused Methylprednisolone Sodium Succinate (Solu-Medrol) 40 mg IVP Q6HR [facility] Stop: 01/21/18 18:53 Vitamin B Complex/Vit C/Folic Acid (Vitamin B Complex W/Vitamin C) 1 tab PO DAILY [facility] Stop: 01/20/18 08:59 Last Admin: 11/22/17 08:25 Dose: Not Given General: no acute distress, well developed HEENT: atraumatic, normocephalic, PERRLA Neck: supple, no thyromegaly Cardiovascular: S1S2, regular Lungs: clear to auscultation bilaterally, clear to percussion Abdomen: soft, no tender, no distended, no mass Extremities: no cyanosis, no clubbing Neurological: awake, alert, oriented Skin: intact - Procedures Procedures: Procedures Procedure Code Date BLOOD TRANSFUSION SERVICE 56943 11/20/17 PERFORMANCE OF URINARY FILTRATION, <6 HRS/DAY [id number] 10/29/17 TRANSFUSE NONAUT RED BLOOD CELLS IN PERIPH VEIN, PERC [id number] 11/20/17 Infectious Disease Assmt/Plan - Assessment Assessment: 1. Chronic hepatitis C without evidence of any encephalopathy. Hep C antibody negative. 2. Anemia of chronic disease. 3. Multiple myeloma. 4. Dementia. 5. Protein-calorie malnutrition. 6. Neuropathy. 7. Chronic kidney disease stage 5, on hemodialysis. - Plan Plan: continue same treatment. Check Hep C RNA PCR.
[2017-11-23] MEDS: methylPREDNISolone SS 40 mg Vial IVP SCH ×3 (00:43→12:24)
[2017-11-23 02:16] LABS: HEP B CORE AB TOTAL Negative (Negative); HEP B CORE IGM Negative (Negative); HEP B SURFACE AB QUANT <3.1 mIU/mL (Immunity>9.9); HEP B SURFACE AG QL Negative (Negative); HEP C ANTIBODY 0.1 s/co ratio (0.0-0.9)
[2017-11-23] MEDS: Albuterol/Ipratropium Neb 3 ML AERS HHN SCH ×5 (04:15→20:00)
[2017-11-23 05:53] LABS: HEMATOCRIT 24.4 % (41.0-60); MEAN CELL VOLUME 91.8 fl (80-99); MEAN CORPUSCULAR HGB CONC 32.7 pg (28.0-36.0); MEAN PLATELET VOLUME 6.7 fl; PLATELET COUNT 221 Th/cmm (150-400); RED BLOOD COUNT 2.66 Mil/cmm (4.30-5.70); RED CELL DISTRIBUTION WIDTH 23.8 % (11.5-20.0)
[2017-11-23 05:56] LABS: CARBON DIOXIDE 27.4 mEq/L (21.0-31.0); GFR AFRICAN-AMERICAN 19.2 ml/min (>90); GFR NON AFRICAN-AMERICAN 15.9 ml/min; MANUAL DIFF REQUIRED? YES; POTASSIUM SERUM 3.4 mEq/L (3.5-5.1)
[2017-11-23 06:04] LABS: CREATININE - SERUM 4.1 mg/dL (0.7-1.3)
[2017-11-23 06:21] LABS: BAND NEUTROPHILE 2 % (0-10); LYMPHOCYTE 10 % (20-50); MONOCYTE 2 % (2-10); NEUTROPHILS 86 % (40-80); TOTAL CELLS COUNTED 100
[2017-11-23 06:22] LABS: ANISOCYTOSIS 1+
[2017-11-23] MEDS: Vitamin B Complex w/Vitamin C Tab PO SCH (09:07)
[2017-11-23] MEDS: Levofloxacin 250mg/50mL 250 MG/50 ML BAG IV SCH (09:11)
--- NOTE | 2017-11-23 13:08 | Internal Medicine Prog Note ---
Internal Medicine Subjective - Subjective Service Date: 11/23/17 Patient seen and examined:: with staff Patient is:: awake, verbal Per staff patient has:: tolerating meds Internal Medicine Objective - Results Result Diagrams: 11/23/17 04:40 11/23/17 04:40 Recent Labs: Laboratory Last Values WBC 6.0 Th/cmm (4.8-10.8) 11/23/17 04:40 RBC 2.66 Mil/cmm (4.30-5.70) L 11/23/17 04:40 Hgb 8.0 gm/dL (12-16) L 11/23/17 04:40 Hct 24.4 % (41.0-60) L 11/23/17 04:40 MCV 91.8 fl (80-99) 11/23/17 04:40 MCH 30.0 pg (26.0-30.0) 11/23/17 04:40 MCHC Differential 32.7 pg (28.0-36.0) 11/23/17 04:40 RDW 23.8 % (11.5-20.0) H 11/23/17 04:40 Plt Count 221 Th/cmm (150-400) 11/23/17 04:40 MPV 6.7 fl 11/23/17 04:40 Band Neutrophils % 2 % (0-10) 11/23/17 04:40 Neutrophils (Manual) 86 % (40-80) H 11/23/17 04:40 Lymphocytes 10 % (20-50) L 11/23/17 04:40 Monocytes 2 % (2-10) 11/23/17 04:40 Eosinophils 0 % (0-5) 11/20/17 00:10 Basophils 0 % (0-3) 11/20/17 00:10 Platelet Estimate ADEQUATE (NORMAL) 11/21/17 05:05 Platelet Morphology NORMAL (NORMAL) 11/21/17 05:05 Polychromasia 1+ 11/20/17 09:20 Poikilocytosis 1+ 11/21/17 05:05 Anisocytosis 1+ 11/23/17 04:40 RBC Morph Micro Appear ABNORMAL (NORMAL) 11/21/17 05:05 PT 10.3 SECONDS (9.5-11.5) 11/20/17 00:10 INR 0.99 (0.5-1.4) 11/20/17 00:10 PTT (Actin FS) 22.5 SECONDS (26.0-38.0) L 11/20/17 00:10 Sodium 137 mEq/L (136-145) 11/23/17 04:40 Potassium 3.4 mEq/L (3.5-5.1) L 11/23/17 04:40 Chloride 99 mEq/L (98-107) 11/23/17 04:40 Carbon Dioxide 27.4 mEq/L (21.0-31.0) 11/23/17 04:40 Anion Gap 14.0 (7.0-16.0) 11/23/17 04:40 BUN 38 mg/dL (7-25) H 11/23/17 04:40 Creatinine 4.1 mg/dL (0.7-1.3) H* 11/23/17 04:40 Est GFR ( Amer) 19.2 ml/min (>90) 11/23/17 04:40 Est GFR (Non-Af Amer) 15.9 ml/min 11/23/17 04:40 BUN/Creatinine Ratio 9.3 11/23/17 04:40 Glucose 123 mg/dL (70-105) H 11/23/17 04:40 Calcium 9.0 mg/dL (8.6-10.3) 11/23/17 04:40 Total Bilirubin 0.5 mg/dL (0.3-1.0) 11/20/17 00:10 AST 18 U/L (13-39) 11/20/17 00:10 ALT 13 U/L (7-52) 11/20/17 00:10 Alkaline Phosphatase 143 U/L (34-104) H 11/20/17 00:10 Troponin I 0.03 ng/mL (0.01-0.05) 11/20/17 00:10 Total Protein 6.6 gm/dL (6.0-8.3) 11/20/17 00:10 Albumin 3.3 gm/dL (4.2-5.5) L 11/20/17 00:10 Globulin 3.3 gm/dL 11/20/17 00:10 Albumin/Globulin Ratio 1.0 (1.0-1.8) 11/20/17 00:10 Triglycerides 96 mg/dL (<150) 11/20/17 09:20 Cholesterol 151 mg/dL (<200) 11/20/17 09:20 LDL Cholesterol Direct 38 mg/dL (75-193) L 11/20/17 09:20 HDL Cholesterol 84 mg/dL (23-92) 11/20/17 09:20 TSH 1.39 uIU/ml (0.34-5.60) 11/20/17 09:20 Stool Occult Blood NEGATIVE (NEGATIVE) 11/21/17 06:10 Hep Bs Antigen Negative (Negative) 11/21/17 05:05 Hep Bs Antibody, Quant <3.1 mIU/mL (Immunity>9.9) L 11/21/17 05:05 Hep B Core Total Ab Negative (Negative) 11/21/17 05:05 Hep B Core IgM Ab Negative (Negative) 11/21/17 05:05 Hepatitis C Antibody 0.1 s/co ratio (0.0-0.9) 11/21/17 05:05 Blood Type B NEGATIVE 11/20/17 00:10 Antibody Screen NEGATIVE 11/20/17 00:10 Crossmatch See Detail 11/20/17 00:10 - Physical Exam Vitals and I&O: Vital Signs Temp 98.2 F 11/23/17 11:48 Pulse 96 11/23/17 11:48 Resp 20 11/23/17 12:00 BP 117/75 11/23/17 11:48 Pulse Ox 100 11/23/17 11:48 Intake & Output 11/22/17 11/23/17 11/23/17 18:59 06:59 18:59 Intake Total 650 50 50 Output Total 1500 Balance -850 50 50 Weight (lbs) 92 lb 9.6 oz 91 lb 1 oz Intake: Intake, IV Amount 50 50 Levofloxacin 250mg/50mL 50 50 250 mg In 50 ml @ 50 mls/ hr IV Q24HR REPLACED BY [facility] Rx#: [id number] Oral 600 50 Output: Hemodialysis 1500 Other: # Voids 0 # Bowel Movements 2 Stool Characteristics Soft Soft Soft Formed Formed Formed Brown Brown Brown Weight Source Bedscale Bedscale Active Medications: Current Medications Acetaminophen (Tylenol) 650 mg PO Q6H PRN PRN Reason: Pain or Fever >101 Stop: 01/19/18 05:03 Last Admin: 11/21/17 16:05 Dose: 650 mg Acetaminophen (Tylenol) 650 mg PO Q6HR PRN PRN Reason: Pain or Fever >101 Stop: 01/19/18 14:17 Albuterol/Ipratropium (Duoneb Neb) 3 ml HHN Q4H [facility] PRN Reason: Protocol Stop: 01/20/18 08:14 Last Admin: 11/23/17 11:01 Dose: 3 ml Atorvastatin Calcium (Lipitor) 40 mg PO HS [facility] Stop: 01/19/18 20:59 Last Admin: 11/22/17 20:43 Dose: 40 mg Diphenhydramine HCl (Benadryl) 25 mg PO Q6HR PRN PRN Reason: Itching Stop: 01/19/18 14:17 Last Admin: 11/21/17 00:26 Dose: 25 mg Docusate Sodium (Colace) 100 mg PO BID [facility] Stop: 01/19/18 16:59 Last Admin: 11/23/17 09:07 Dose: 100 mg Levofloxacin (Levaquin Pb) 250 mg in 50 mls @ 50 mls/hr IV Q24HR [facility] Stop: 01/20/18 08:59 Last Infusion: 11/23/17 10:15 Dose: Infused Methylprednisolone Sodium Succinate (Solu-Medrol) 40 mg IVP Q6HR [facility] Stop: 01/21/18 18:53 Last Admin: 11/23/17 12:24 Dose: 40 mg Miscellaneous (Clinical Monitoring) 1 ea MC DAILY PRN PRN Reason: RENAL Stop: 01/22/18 09:31 Vitamin B Complex/Vit C/Folic Acid (Vitamin B Complex W/Vitamin C) 1 tab PO DAILY [facility] Stop: 01/20/18 08:59 Last Admin: 11/23/17 09:07 Dose: 1 tab General: weak, alert HEENT: NC/AT, PERRLA Neck: Supple Lungs: CTAB Cardiovascular: RRR, Normal S1, Normal S2, without murmur Abdomen: soft, non-tender, non-distended, positive bowel sound - Procedures Procedures: Procedures Procedure Code Date BLOOD TRANSFUSION SERVICE 96623 11/20/17 PERFORMANCE OF URINARY FILTRATION, <6 HRS/DAY [id number] 10/29/17 TRANSFUSE NONAUT RED BLOOD CELLS IN PERIPH VEIN, PERC 11066U7 11/20/17 Internal Medicine Assmt/Plan - Assessment Assessment: Chronic hepatitis C without evidence of any encephalopathy. Hep C antibody negative. Anemia of chronic disease. Multiple myeloma. Dementia. Protein-calorie malnutrition. neuropathy Chronic kidney disease stage 5, on hemodialysis. - Plan Plan: monitor h/h continue HD follow up labs in am continue current plan of care
[2017-11-23] MEDS ORDERED: Potassium Chloride 20 mEq ER Tab PO ONE (14:23)
--- NOTE | 2017-11-23 14:23 | General Progress Note ---
Subjective - Review of Systems Service Date: 11/23/17 Subjective: alert, comfortable, verbal Objective - Results Result Diagrams: 11/23/17 04:40 11/23/17 04:40 Recent Labs: Laboratory Last Values WBC 6.0 Th/cmm (4.8-10.8) 11/23/17 04:40 RBC 2.66 Mil/cmm (4.30-5.70) L 11/23/17 04:40 Hgb 8.0 gm/dL (12-16) L 11/23/17 04:40 Hct 24.4 % (41.0-60) L 11/23/17 04:40 MCV 91.8 fl (80-99) 11/23/17 04:40 MCH 30.0 pg (26.0-30.0) 11/23/17 04:40 MCHC Differential 32.7 pg (28.0-36.0) 11/23/17 04:40 RDW 23.8 % (11.5-20.0) H 11/23/17 04:40 Plt Count 221 Th/cmm (150-400) 11/23/17 04:40 MPV 6.7 fl 11/23/17 04:40 Band Neutrophils % 2 % (0-10) 11/23/17 04:40 Neutrophils (Manual) 86 % (40-80) H 11/23/17 04:40 Lymphocytes 10 % (20-50) L 11/23/17 04:40 Monocytes 2 % (2-10) 11/23/17 04:40 Eosinophils 0 % (0-5) 11/20/17 00:10 Basophils 0 % (0-3) 11/20/17 00:10 Platelet Estimate ADEQUATE (NORMAL) 11/21/17 05:05 Platelet Morphology NORMAL (NORMAL) 11/21/17 05:05 Polychromasia 1+ 11/20/17 09:20 Poikilocytosis 1+ 11/21/17 05:05 Anisocytosis 1+ 11/23/17 04:40 RBC Morph Micro Appear ABNORMAL (NORMAL) 11/21/17 05:05 PT 10.3 SECONDS (9.5-11.5) 11/20/17 00:10 INR 0.99 (0.5-1.4) 11/20/17 00:10 PTT (Actin FS) 22.5 SECONDS (26.0-38.0) L 11/20/17 00:10 Sodium 137 mEq/L (136-145) 11/23/17 04:40 Potassium 3.4 mEq/L (3.5-5.1) L 11/23/17 04:40 Chloride 99 mEq/L (98-107) 11/23/17 04:40 Carbon Dioxide 27.4 mEq/L (21.0-31.0) 11/23/17 04:40 Anion Gap 14.0 (7.0-16.0) 11/23/17 04:40 BUN 38 mg/dL (7-25) H 11/23/17 04:40 Creatinine 4.1 mg/dL (0.7-1.3) H* 11/23/17 04:40 Est GFR ( Amer) 19.2 ml/min (>90) 11/23/17 04:40 Est GFR (Non-Af Amer) 15.9 ml/min 11/23/17 04:40 BUN/Creatinine Ratio 9.3 11/23/17 04:40 Glucose 123 mg/dL (70-105) H 11/23/17 04:40 Calcium 9.0 mg/dL (8.6-10.3) 11/23/17 04:40 Total Bilirubin 0.5 mg/dL (0.3-1.0) 11/20/17 00:10 AST 18 U/L (13-39) 11/20/17 00:10 ALT 13 U/L (7-52) 11/20/17 00:10 Alkaline Phosphatase 143 U/L (34-104) H 11/20/17 00:10 Troponin I 0.03 ng/mL (0.01-0.05) 11/20/17 00:10 Total Protein 6.6 gm/dL (6.0-8.3) 11/20/17 00:10 Albumin 3.3 gm/dL (4.2-5.5) L 11/20/17 00:10 Globulin 3.3 gm/dL 11/20/17 00:10 Albumin/Globulin Ratio 1.0 (1.0-1.8) 11/20/17 00:10 Triglycerides 96 mg/dL (<150) 11/20/17 09:20 Cholesterol 151 mg/dL (<200) 11/20/17 09:20 LDL Cholesterol Direct 38 mg/dL (75-193) L 11/20/17 09:20 HDL Cholesterol 84 mg/dL (23-92) 11/20/17 09:20 TSH 1.39 uIU/ml (0.34-5.60) 11/20/17 09:20 Stool Occult Blood NEGATIVE (NEGATIVE) 11/21/17 06:10 Hep Bs Antigen Negative (Negative) 11/21/17 05:05 Hep Bs Antibody, Quant <3.1 mIU/mL (Immunity>9.9) L 11/21/17 05:05 Hep B Core Total Ab Negative (Negative) 11/21/17 05:05 Hep B Core IgM Ab Negative (Negative) 11/21/17 05:05 Hepatitis C Antibody 0.1 s/co ratio (0.0-0.9) 11/21/17 05:05 Blood Type B NEGATIVE 11/20/17 00:10 Antibody Screen NEGATIVE 11/20/17 00:10 Crossmatch See Detail 11/20/17 00:10 - Physical Exam Vitals and I&O: Vital Signs Temp 98.2 F 11/23/17 11:48 Pulse 96 11/23/17 11:48 Resp 20 11/23/17 12:00 BP 117/75 11/23/17 11:48 Pulse Ox 100 11/23/17 11:48 Intake & Output 11/22/17 11/23/17 11/23/17 18:59 06:59 18:59 Intake Total 650 50 50 Output Total 1500 Balance -850 50 50 Weight (lbs) 42.003 kg 41.305 kg Intake: Intake, IV Amount 50 50 Levofloxacin 250mg/50mL 50 50 250 mg In 50 ml @ 50 mls/ hr IV Q24HR [facility] Rx#: [id number] Oral 600 50 Output: Hemodialysis 1500 Other: # Voids 0 # Bowel Movements 2 Stool Characteristics Soft Soft Soft Formed Formed Formed Brown Brown Brown Weight Source Bedscale Bedscale Active Medications: Current Medications Acetaminophen (Tylenol) 650 mg PO Q6H PRN PRN Reason: Pain or Fever >101 Stop: 01/19/18 05:03 Last Admin: 11/21/17 16:05 Dose: 650 mg Acetaminophen (Tylenol) 650 mg PO Q6HR PRN PRN Reason: Pain or Fever >101 Stop: 01/19/18 14:17 Albuterol/Ipratropium (Duoneb Neb) 3 ml HHN Q4H [facility] PRN Reason: Protocol Stop: 01/20/18 08:14 Last Admin: 11/23/17 11:01 Dose: 3 ml Atorvastatin Calcium (Lipitor) 40 mg PO HS [facility] Stop: 01/19/18 20:59 Last Admin: 11/22/17 20:43 Dose: 40 mg Diphenhydramine HCl (Benadryl) 25 mg PO Q6HR PRN PRN Reason: Itching Stop: 01/19/18 14:17 Last Admin: 11/21/17 00:26 Dose: 25 mg Docusate Sodium (Colace) 100 mg PO BID [facility] Stop: 01/19/18 16:59 Last Admin: 11/23/17 09:07 Dose: 100 mg Levofloxacin (Levaquin Pb) 250 mg in 50 mls @ 50 mls/hr IV Q24HR [facility] Stop: 01/20/18 08:59 Last Infusion: 11/23/17 10:15 Dose: Infused Methylprednisolone Sodium Succinate (Solu-Medrol) 40 mg IVP Q8HR [facility] Stop: 01/22/18 20:59 Miscellaneous (Clinical Monitoring) 1 ea MC DAILY PRN PRN Reason: RENAL Stop: 01/22/18 09:31 Vitamin B Complex/Vit C/Folic Acid (Vitamin B Complex W/Vitamin C) 1 tab PO DAILY [facility] Stop: 01/20/18 08:59 Last Admin: 11/23/17 09:07 Dose: 1 tab General: Alert, No acute distress HEENT: PERRLA, Mucous membr. moist/pink Neck: Supple, +2 carotid pulse wo bruit Cardiovascular: Regular rate, Normal S1, Normal S2 Lungs: Clear to auscultation Abdomen: Bowel sounds, Soft Extremities: no Edema Neurological: Sensation intact Skin: no Rash Psych/Mental Status: Mood NL - Procedures Procedures: Procedures Procedure Code Date BLOOD TRANSFUSION SERVICE 91720 11/20/17 PERFORMANCE OF URINARY FILTRATION, <6 HRS/DAY [id number] 10/29/17 TRANSFUSE NONAUT RED BLOOD CELLS IN PERIPH VEIN, PERC 54539P2 11/20/17 Assessment/Plan - Assessment Assessment: ESRD on HD Acute on Chronic Anemia Multiple Myeloma Ess Htn Hx CHF Severe Malnutrition Type 2 DM - Plan Plan: Lab - Result Diagrams 11/21/17 05:05 11/20/17 09:20 Current Medications Acetaminophen (Tylenol) 650 mg PO Q6H PRN PRN Reason: Pain or Fever >101 Stop: 01/19/18 05:03 Last Admin: 11/21/17 16:05 Dose: 650 mg Acetaminophen (Tylenol) 650 mg PO Q6HR PRN PRN Reason: Pain or Fever >101 Stop: 01/19/18 14:17 Albuterol/Ipratropium (Duoneb Neb) 3 ml HHN Q4H [facility] PRN Reason: Protocol Stop: 01/20/18 08:14 Last Admin: 11/21/17 15:16 Dose: 3 ml Atorvastatin Calcium (Lipitor) 40 mg PO HS [facility] Stop: 01/19/18 20:59 Last Admin: 11/20/17 20:49 Dose: 40 mg Diphenhydramine HCl (Benadryl) 25 mg PO Q6HR PRN PRN Reason: Itching Stop: 01/19/18 14:17 Last Admin: 11/21/17 00:26 Dose: 25 mg Docusate Sodium (Colace) 100 mg PO BID [facility] Stop: 01/19/18 16:59 Last Admin: 11/21/17 16:05 Dose: 100 mg Levofloxacin (Levaquin Pb) 250 mg in 50 mls @ 50 mls/hr IV Q24HR [facility] Stop: 01/20/18 08:59 Last Admin: 11/21/17 09:28 Dose: 50 mls/hr Methylprednisolone Sodium Succinate (Solu-Medrol) 100 mg IVP Q6HR [facility] Stop: 01/20/18 08:59 Last Admin: 11/21/17 09:32 Dose: 100 mg Miscellaneous (Epoetin Binu [Epogen]) 100 mcg SQ [facility] Stop: 01/19/18 14:29 Vitamin B Complex/Vit C/Folic Acid (Vitamin B Complex W/Vitamin C) 1 tab PO DAILY [facility] Stop: 01/20/18 08:59 Last Admin: 11/21/17 08:28 Dose: 1 tab Lab - Result Diagrams 11/23/17 04:40 11/23/17 04:40 schedule for HD in am stool OB x 2 neg Hgb/Hct stable replace K
[2017-11-23] MEDS ORDERED: methylPREDNISolone SS 40 mg Vial IVP SCH (21:00)
== END 2017-11-23 20:40 | DRG 840 ==
LOC: ER 23:22 → MSI 11-20 01:30 → TELE 11-21 19:19 → MSI 11-23 16:21
PROVIDERS: ADMIT Internal Medicine; ATTEND Internal Medicine
PROC: 30233N1 Transfusion of Nonautologous Red Blood Cells into Peripheral Vein, Percutaneous Approach (ICD-10-PCS; principal; 2017-11-20)
PROC: 5A09357 Assistance with Respiratory Ventilation, Less than 24 Consecutive Hours, Continuous Positive Airway Pressure (ICD-10-PCS; 2017-11-21)
PROC: 5A1D70Z Performance of Urinary Filtration, Intermittent, Less than 6 Hours Per Day (ICD-10-PCS; 2017-11-22)
DX: C90.00 Multiple myeloma not having achieved remission (principal); N18.6 End stage renal disease; J96.90 Respiratory failure, unspecified, unspecified whether with hypoxia or hypercapnia; E43 Unspecified severe protein-calorie malnutrition; I13.2 Hypertensive heart and chronic kidney disease with heart failure and with stage 5 chronic kidney disease, or end stage renal disease; L02.414 Cutaneous abscess of left upper limb; J44.1 Chronic obstructive pulmonary disease with (acute) exacerbation; J44.0 Chronic obstructive pulmonary disease with (acute) lower respiratory infection; E11.22 Type 2 diabetes mellitus with diabetic chronic kidney disease; G62.9 Polyneuropathy, unspecified; D63.8 Anemia in other chronic diseases classified elsewhere; J20.9 Acute bronchitis, unspecified; F03.90 Unspecified dementia, unspecified severity, without behavioral disturbance, psychotic disturbance, mood disturbance, and anxiety; I50.9 Heart failure, unspecified; R62.7 Adult failure to thrive; B19.20 Unspecified viral hepatitis C without hepatic coma; R19.00 Intra-abdominal and pelvic swelling, mass and lump, unspecified site; Z87.891 Personal history of nicotine dependence; Z99.2 Dependence on renal dialysis
CPT/HCPCS: 36415-UA; 71045-TC; 76700-TC; 80048-TC; 80053-TC; 80061-TC; 82270-TC; 84443-TC; 84484-TC; 85007-TC; 85025-TC; 85027-TC; 85610-TC; 85730-TC; 86592-TC; 86704-90; 86705-90; 86706-90; 86803-90; 86850-TC; 86900-TC; 86901-TC; 86922-TC; 87340-90; 87341-90; 87522-90; 90937; 93005; 94640; 94660; 94760; J1644; J1956; J2920; J7040; P9016; Z7610